=== PATIENT | female | born 2000 | race Caucasian/White ===

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

== ENCOUNTER 2020-01-26 14:45 | Outpatient (REF) | payer MEDICAID, SELFPAY ==
[2020-01-27 17:14] LABS: COVID-19 RT-PCR Result NEGATIVE (Negative)
== END 2020-01-26 15:05 ==
LOC: LBN 14:45
PROVIDERS: Visit Provider Family Medicine
DX: Z20.828 Contact with and (suspected) exposure to other viral communicable diseases (principal)
CPT/HCPCS: U0003

== ENCOUNTER 2020-02-19 18:36 | Outpatient (REF) | payer MEDICAID, SELFPAY ==
[2020-02-20 12:47] LABS: COVID-19 RT-PCR UVMMC Result Negative (Negative)
== END 2020-02-19 18:56 ==
LOC: LBN 18:36
PROVIDERS: Visit Provider Nurse Practitioner Adult Health
DX: Z11.59 Encounter for screening for other viral diseases (principal)
CPT/HCPCS: U0003

== ENCOUNTER 2020-03-28 12:41 | Outpatient (CLI) | payer MEDICAID, SELFPAY ==
[2020-04-02 11:03] LABS: SARS-CoV-2 RNA Undetected (Undetected); SARS-CoV-2 Specimen Source Nasopharynx
== END 2020-03-28 13:01 ==
DX: Z11.59 Encounter for screening for other viral diseases (principal); R19.7 Diarrhea, unspecified
CPT/HCPCS: U0003

== ENCOUNTER 2020-04-29 18:42 | Outpatient (REF) | payer MEDICAID, SELFPAY ==
[2020-05-01 23:51] LABS: COVID-19 RT-PCR Result NEGATIVE (Negative)
== END 2020-04-29 19:02 ==
LOC: LBN 18:42
PROVIDERS: Visit Provider Nurse Practitioner Adult Health
DX: Z11.59 Encounter for screening for other viral diseases (principal)
CPT/HCPCS: U0003

== ENCOUNTER 2020-06-27 14:03 | Outpatient (REF) | payer MEDICAID, SELFPAY | END 2020-06-27 14:23 | LOC: LBN 14:03 | DX: J03.90 Acute tonsillitis, unspecified (principal) | CPT/HCPCS: 87077; 87070; 87186 ==

== ENCOUNTER 2020-07-24 17:21 | Outpatient (REF) | payer MEDICAID, SELFPAY ==
[2020-07-27 11:35] LABS: Patient Race White; SARS-CoV-2 RNA Undetected (Undetected); SARS-CoV-2 Specimen Source Nasal
== END 2020-07-24 17:41 ==
LOC: LBN 17:21
PROVIDERS: Visit Provider Nurse Practitioner Family
DX: J06.9 Acute upper respiratory infection, unspecified (principal)
CPT/HCPCS: U0003

== ENCOUNTER 2020-08-21 09:58 | Emergency (ER) | payer MEDICAID, SELFPAY ==
[2020-08-21 10:00] VITALS: BP 123/80; PULSE 85; RESP 18; TEMP 36.6; O2SAT 96
--- NOTE | 2020-08-21 10:00 | DI.RAD_ITS ---
EXAM: XR SHOULDER RT COMPLETE 2+V CLINICAL HISTORY: Shoulder pain. TECHNIQUE: 2D digital imaging was performed. COMPARISON: No exams were available for comparison FINDINGS: There is no evidence of fracture or dislocation or abnormal soft tissue calcifications. Subacromial space is not diminished. No osseous lesions. Bone density normal. IMPRESSION: No significant radiographic findings. DATA REPOSITORY: RADIATION DOSE DELIVERED:
--- NOTE | 2020-08-21 10:15 | ED.GENADUL_ITS ---
Discharge Plan Disposition Patient Disposition: HOME Condition: Stable Discharge Details Clinical Impression: Other sprain of right shoulder joint, initial encounter Primary Care Provider: Tiffany Jansen ED Provider: Bonnie Dowell Home Meds and New Rx's Prescriptions: Continued norgestimate-ethinyl estradiol [Sprintec (28)] 0.25-35 mg-mcg tablet 1 tab PO DAILY Qty: 84 RF: 3 albuterol sulfate 90 mcg/actuation HFA aerosol inhaler 2 puff inhalation Q6H PRN (Reason: shortness of breath or wheezing) Qty: 6.7 RF: 0 guaifenesin 600 mg tablet extended release 12hr 600 mg PO Q12H PRN (Reason: congestion) Qty: 14 RF: 0 Discharge Instructions Instructions: Shoulder Sprain (ED) Additional Instructions: Rest, ice, compression, elevation. Alternate ice and heat. Please take Tylenol or Ibuprofen with food every 4-6 hours as needed for pain and swelling. Follow up with primary care provider in 3-5 days. Return to ED sooner if any worsening or concerns. Increase oral fluids. Follow-up with orthopedics clinic in 1 week if it is still bothering you. You will need more imaging at 6 months just to monitor that area on the bone. Stand Alone Forms: Work Release Referrals: Tiffany Jansen NP [Primary Care Provider] - Kar Sutton MD [ [facility] STAFF PHYSICIAN] - Discharge Data Discharge Date/Time-TO BE ENTERED AT DEPARTURE: 08/21/20 13:22 Medical Decision Making 20-year-old female presents to the ED with chief complaint of right shoulder pain. She states that this began yesterday after hearing a pop while putting her hair up in a ponytail. Pain worsened this morning after waking from sleep. She is complaining of right shoulder pain, with radiation to the right arm. No other injuries noted. No obvious deformity no falls. She did not take any Tylenol or ibuprofen prior to arrival. a RAD:XR shoulder RT complete 2+V EXAM: XR SHOULDER RT COMPLETE 2+V CLINICAL HISTORY: Shoulder pain. TECHNIQUE: 2D digital imaging was performed. COMPARISON: No exams were available for comparison FINDINGS: There is no evidence of fracture or dislocation or abnormal soft tissue calcifications. Subacromial space is not diminished. No osseous lesions. Bone density normal. IMPRESSION: No significant radiographic findings. 12:00: Spoke with Dr. Sutton with orthopedics who recommends CT to evaluate weight a small lucency noted in the proximal humerus. Patient is still complaining of pain Percocet ordered. Discussed plan of care for CT or MRI patient verbalizes understanding. Addendum dictated Friday08/21/2020 at the 12 noon. There is a 4 x 3 millimeter lucency in the anterior cortex of the proximal diaphysis of the humerus. This appears to involve the cortex. Findings discussed with the orthopedic surgeon. a CT:CT upper extremity RT wo EXAM: CT UPPER EXTREMITY RT WO CLINICAL HISTORY: Shoulder pain TECHNIQUE: Imaging Protocol: Axial computed tomography images with coronal and sagittal reformatted images were created and reviewed. CONTRAST MATERIAL: Intravenous: None COMPARISON: X-rays earlier same date FINDINGS: No evidence of fracture or dislocation. No obvious degenerative changes in the glenohumeral and AC joints bone density is normal. Coracoid process is intact. In the medial cortex of the proximal diaphysis there is a small non expansile lucency measuring 4 x 2 millimeters, this corresponding to the finding on the pl ain radiographs performed earlier today. This is a is not expansile and there is no dehiscence of the cortical surface. No other additional cortical nor intramedullary findings evident. IMPRESSION: Small oval 4 x 2 millimeter nonexpansile lucency in the medial cortex of proximal diaphysis of right humerus, this corresponding to what is seen on the plain films earlier today. No associated scalloping nor cortical dehiscence. No other significant osseous findings. Discussed results with patient who verbalizes understanding. Patient was given a sling in department and instructed on home care and follow-up. She verbalizes understanding. HPI General Mode of arrival: ambulatory . Date/Time Provider Initiated Documentation: 08/21/20 10:03 . Limitations to Documentation: no limitations . Information obtained by: patient . HPI Narrative: 20-year-old female presents to the ED with chief complaint of right shoulder pain. She states that this began yesterday after hearing a pop while putting her hair up in a ponytail. Pain worsened this morning after waking from sleep. She is complaining of right shoulder pain, with radiation to the right arm. No other injuries noted. No obvious deformity no falls. She did not take any Tylenol or ibuprofen prior to arrival. Related Data Home Medications Medication Instructions Recorded Confirmed norgestimate 0.25 mg-ethinyl 1 tab PO DAILY #84 tab 05/30/20 08/21/20 estradiol 35 mcg tablet albuterol sulfate 90 mcg/actuation 2 puff INHALATION Q6H PRN #6.7 g 07/19/20 08/21/20 aerosol inhaler guaifenesin 600 mg tablet, 600 mg PO Q12H PRN #14 tab 07/24/20 08/21/20 extended release 12 hr Previous Rx's Medication Instructions Recorded norgestimate 0.25 mg-ethinyl 1 tab PO DAILY #84 tab 05/30/20 estradiol 35 mcg tablet albuterol sulfate 90 mcg/actuation 2 puff INHALATION Q6H PRN #6.7 g 07/19/20 aerosol inhaler guaifenesin 600 mg tablet, 600 mg PO Q12H PRN #14 tab 07/24/20 extended release 12 hr Allergies Allergy/AdvReac Type Severity Reaction Status Date / Time No Known Allergies Allergy Verified 08/21/20 10:12 General Stated Complaint: Orthopedic PILLO: 4 Review of Systems Narrative: Constitutional: Negative for weight loss, alert and oriented, well groomed, obese body habitus, appears comfortable. HEENT: Denies trauma, headaches, blurry vision, nasal discharge, sore throat, trouble swallowing. Chest: Denies chest pain, palpitations, irregular rhythm, hypertension. Respiratory: Denies Shortness of breath, cough, hemoptysis. GI: Denies abdominal pain, nausea, vomiting, diarrhea, constipation. Musculoskeletal: Complaining of right shoulder pain with radiation to the right arm. [facility] Medical History Increased body mass index (BMI) (10/23/17) Sinusitis, acute Smoker (09/23/17) Upper respiratory tract infection Family History Mother Asthma Father Alcohol abuse Essential hypertension Diabetes Paternal Grandfather Parkinson disease Paternal Grandmother Essential hypertension Asthma Social History Smoking/Tobacco Use Status: Current every day Tobacco Type: cigarettes Years smoked: 4 Quit status: quit date established Second Hand Exposure: Yes Counseling given: counseling >3 minutes Smoking risk assessment performed?: Yes Alcohol Intake: never Drug use: Never Substance use type: does not use Caregiver/Support person: No Household members: family Housing: house Pets and animals: Yes Pets and animals: dog(s), horse(s), turtle(s) and farm animals Sexually active: No Do you think of yourself as: straight/heterosexual Current gender identity: female What is your relationship status?: never How often do you talk on the phone with friends or family?: three or more times per week How often do you get together with friends or relatives?: three or more times per week How often do you attend mormon or orthodoxy services?: 4 or more times per year Do you belong to any clubs or organized social groups?: no Panel score (0-1 are the most socially isolated patients): 2 What type of physical activity do you participate in: walking and other 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 Appears stated age. Obese body habitus. Head: Normocephalic, no trauma. Eyes: Pupils PERRLA, Red reflex noted, EOM's intact. Eyelids symmetrical without lesions, discharge, or swelling. ENT: Bilateral TM's WNL, External ear normal to inspection, no mastoid TTP, swelling, or erythema, Nasal turbinates WNL, no nasal discharge. Normal dentition, Posterior pharynx WNL, no exudate. Chest: RRR, Normal S1, S2, distal pulses intact. Resp: Lungs clear to auscultation bilaterally, no wheezes, rales, or rhonchi. Musculoskeletal: Normal gait, 5/5 strength to all four extremities. Right shoulder pain to palpation anteriorly and posteriorly. Distal pulses and CMS intact. No obvious deformity noted. Skin: No suspicious rashes or lesions. Capillary refill less than 2 sec. Neurologic: Cranial nerves II-XII intact. Alert and oriented x 3. DTR's intact. Course Vital Signs Vital signs: Vital Signs Temperature 36.6 C 08/21/20 10:00 Pulse 85 08/21/20 10:00 Respiratory Rate 18 08/21/20 10:00 Blood Pressure 123/80 08/21/20 10:00 Pulse Oximetry 96 08/21/20 10:00 Temperature 36.6 C 08/21/20 10:00 Temperature Source Skin 08/21/20 10:00 Pulse 85 08/21/20 10:00 Respiratory Rate 18 08/21/20 10:00 Blood Pressure 123/80 08/21/20 10:00 Blood Pressure Position Sitting 08/21/20 10:00 Pulse Oximetry 96 08/21/20 10:00 Oxygen Delivery Method Room Air 08/21/20 10:00 Oxygen Flow Rate 0 08/21/20 10:00 Pain Level 8 08/21/20 10:00 Comment 08/21/20 10:00
[2020-08-21] MEDS: Acetaminophen 500 MG TAB PO (10:20)
--- NOTE | 2020-08-21 12:00 | DI.CT_ITS ---
EXAM: CT UPPER EXTREMITY RT WO CLINICAL HISTORY: Shoulder pain TECHNIQUE: Imaging Protocol: Axial computed tomography images with coronal and sagittal reformatted images were created and reviewed. CONTRAST MATERIAL: Intravenous: None COMPARISON: X-rays earlier same date FINDINGS: No evidence of fracture or dislocation. No obvious degenerative changes in the glenohumeral and AC j oints bone density is normal. Coracoid process is intact. In the medial cortex of the proximal diaphysis there is a small non expansile lucency measuring 4 x 2 millimeters, this corresponding to the finding on the plain radiographs performed earlier today. Th is is a is not expansile and there is no dehiscence of the cortical surface. No other additional cor tical nor intramedullary findings evident. IMPRESSION: Small oval 4 x 2 millimeter nonexpansile lucency in the medial cortex of proximal diaphysis of right humerus, this corresponding to what is seen on the plain films earlier today. No associated scallopi ng nor cortical dehiscence. No other significant osseous findings. RADIATION DOSE DELIVERED: 219.45mGy.cm Total DLP DATA REPOSITORY: All CT scans at this facility are submitted to the National Radiology Data Registry (NRDR) Dose Index Registry (DIR) with the [employer] ([employer]). RADIATION OPTIMIZATION: All CT scans at this facility use at least one of these dose optimization te chniques: automated exposure control; mA and/or kV adjustment per patient size (includes targeted exa ms where dose is matched to clinical indication); or iterative reconstruction.
[2020-08-21] MEDS: oxyCODONE 5 mg/Acetaminophen 325 mg TAB 1 TAB PO (12:03)
[2020-08-21 13:24] VITALS: BP 124/76; PULSE 85; RESP 18; TEMP 36.5; O2SAT 97
== END 2020-08-21 13:22 | disposition home or self-care (01) ==
PROVIDERS: Emergency Provider Registered Nurse Emergency
DX: S43.491A Other sprain of right shoulder joint, initial encounter (principal); X58.XXXA Exposure to other specified factors, initial encounter
CPT/HCPCS: 81025; 99284; 73030; 73200; 99283

== ENCOUNTER 2020-09-13 16:26 | Outpatient (REF) | payer MEDICAID, SELFPAY ==
[2020-09-15 09:36] LABS: COVID-19 RT-PCR Result NEGATIVE (Negative)
== END 2020-09-13 16:46 ==
LOC: LBN 16:26
PROVIDERS: Visit Provider Nurse Practitioner Adult Health
DX: Z11.59 Encounter for screening for other viral diseases (principal)
CPT/HCPCS: U0003

== ENCOUNTER 2020-11-24 09:39 | Outpatient (CLI) | payer MEDICAID, SELFPAY ==
[2020-11-25 02:01] LABS: COVID-19 RT-PCR UVMMC Result Positive (Negative)
== END 2020-11-24 09:40 | disposition home or self-care (01) ==
PROVIDERS: Visit Provider Nurse Practitioner Family
DX: Z20.822 Contact with and (suspected) exposure to COVID-19 (principal)
CPT/HCPCS: U0003

== ENCOUNTER 2021-01-26 12:00 | Emergency (ER) | payer MEDICAID, SELFPAY ==
[2021-01-26 12:05] VITALS: BP 132/68; PULSE 75; RESP 16; TEMP 36.5; O2SAT 98
--- NOTE | 2021-01-26 12:27 | ED.GENADUL_ITS ---
Discharge Plan Disposition Patient Disposition: HOME Condition: Stable Discharge Details Clinical Impression: Rash Primary Care Provider: Tiffany Jansen ED Provider: Earnest Napier Home Meds and New Rx's Prescriptions: Continued norgestimate-ethinyl estradiol [Sprintec (28)] 0.25-35 mg-mcg tablet 1 tab PO DAILY Qty: 84 RF: 3 albuterol sulfate 90 mcg/actuation HFA aerosol inhaler 2 puff inhalation Q6H PRN (Reason: shortness of breath or wheezing) Qty: 6.7 RF: 0 guaifenesin 600 mg tablet extended release 12hr 600 mg PO Q12H PRN (Reason: congestion) Qty: 14 RF: 0 Discharge Instructions Additional Instructions: Your rash and spot appears to be a dermatitis and less likely a ganglion cyst try to use over the counter hydrocotrisone cream on the area if not improving by next week see your primary care provider's office if you feel more ill, have fevers or worsening pain return to the emergency department Medical Decision Making 21 yo female comes in a spot on her right arm that was causing a burning and itching sensation. She noticed it today and was not sure what caused it so came here. She has no numbness on exam, normal sensation, full rnage of motion of the hand, wrist, elbow and normal pulses. She has very mild erythema of the right distal anterior arm about 2x2cm without warmth and no tenderness, no fluctuance. No abscess on bedside u/s and no evidence of cellulitis, suspect contact dermatitis and less likely ganglion cyst, will have her start topical steroids and advised to follow up with pcp and return precautions given Differential Diagnosis Differential Diagnosis: contact dermatitis, ganglion cyst [facility] General Mode of arrival: ambulatory . Date/Time Provider Initiated Documentation: 01/26/21 12:00 . Limitations to Documentation: no limitations . Information obtained by: patient . History of Present Illness 21 year old F presents to the emergency department with the chief complaint of rash, described as mild, Quality is described as burning (and itching), and is localized to the upper extremity. Patient reports no radiation. Patient started experiencing this day(s) (1) and it has been constant. No relieving factors improve symptom(s), No exacerbating factors reported . Patient did receive the following treatments prior to arrival, none Related Data Home Medications Medication Instructions Recorded Confirmed norgestimate 0.25 mg-ethinyl 1 tab PO DAILY #84 tab 05/30/20 08/28/20 estradiol 35 mcg tablet albuterol sulfate 90 mcg/actuation 2 puff INHALATION Q6H PRN #6.7 g 07/19/20 08/28/20 aerosol inhaler guaifenesin 600 mg tablet, 600 mg PO Q12H PRN #14 tab 07/24/20 08/28/20 extended release 12 hr Previous Rx's Medication Instructions Recorded norgestimate 0.25 mg-ethinyl 1 tab PO DAILY #84 tab 05/30/20 estradiol 35 mcg tablet albuterol sulfate 90 mcg/actuation 2 puff INHALATION Q6H PRN #6.7 g 07/19/20 aerosol inhaler guaifenesin 600 mg tablet, 600 mg PO Q12H PRN #14 tab 07/24/20 extended release 12 hr Allergies Allergy/AdvReac Type Severity Reaction Status Date / Time No Known Allergies Allergy Verified 01/26/21 12:14 General Stated Complaint: Orthopedic PILLO: 4 Review of Systems All systems reviewed & are unremarkable except as noted in HPI and below Constitutional Constitutional: Denies chills and Denies fever(s) Cardiovascular Cardiovascular: Denies chest pain and Denies dyspnea Respiratory Respiratory: Denies cough and Denies dyspnea Gastrointestinal Gastrointestinal: Denies abdominal pain, Denies nausea and Denies vomiting PFSH Medical History Increased body mass index (BMI) (10/23/17) Sinusitis, acute Smoker (09/23/17) Upper respiratory tract infection Family History Mother Asthma Father Alcohol abuse Essential hypertension Diabetes Paternal Grandfather Parkinson disease Paternal Grandmother Essential hypertension Asthma Social History Smoking/Tobacco Use Status: Current every day Tobacco Type: cigarettes Years smoked: 4 Quit status: quit date established Second Hand Exposure: Yes Counseling given: counseling >3 minutes Smoking risk assessment performed?: Yes Alcohol Intake: current Alcohol Intake frequency: holidays/special occasions only Drug use: Never Substance use type: does not use Caregiver/Support person: No Household members: family Housing: house Pets and animals: Yes Pets and animals: dog(s), horse(s), turtle(s) and farm animals Sexually active: No Do you think of yourself as: straight/heterosexual Current gender identity: female What is your relationship status?: never How often do you talk on the phone with friends or family?: three or more times per week How often do you get together with friends or relatives?: three or more times per week How often do you attend buddhism or religion services?: 4 or more times per year Do you belong to any clubs or organized social groups?: no Panel score (0-1 are the most socially isolated patients): 2 What type of physical activity do you participate in: walking and other 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, [employer] Duration: 15-30 minutes/day Frequency: 5-6 times per week Yadira/Lutheran: Mandaen Do you feel safe at home: Yes Do you feel safe in your relationship?: Yes Exam Const General: no acute distress Orientation: alert HENMT Head: normal to inspection Ears: external ears normal General nose exam: external nose normal Mouth: moist mucous membranes Eyes General: appearance normal, both eyes and all related structures Neck Neck: normal visual inspection Resp Effort & Inspection: normal respiratory effort and able to speak in complete sentences Cardio Rate: regular rate Skin General skin exam: elasticity normal Neuro General: patient alert and patient oriented x3 Extrem General: full ROM, capillary refill normal, no cyanosis and no edema Psych Mental Status: mental status grossly normal Course Vital Signs Vital signs: Vital Signs Temperature 36.5 C 01/26/21 12:05 Pulse 75 01/26/21 12:05 Respiratory Rate 16 01/26/21 12:05 Blood Pressure 132/68 01/26/21 12:05 Pulse Oximetry 98 01/26/21 12:05 Temperature 36.5 C 01/26/21 12:05 Temperature Source Oral 01/26/21 12:05 Pulse 75 01/26/21 12:05 Respiratory Rate 16 01/26/21 12:05 Respiratory Effort 01/26/21 12:15 Blood Pressure 132/68 01/26/21 12:05 Blood Pressure Position Sitting 01/26/21 12:05 Pulse Oximetry 98 01/26/21 12:05 Oxygen Delivery Method Room Air 01/26/21 12:05 Oxygen Flow Rate 0 01/26/21 12:05 Pain Level 5 01/26/21 12:05
== END 2021-01-26 12:37 | disposition home or self-care (01) ==
PROVIDERS: Emergency Provider Emergency Medicine
DX: R21 Rash and other nonspecific skin eruption (principal)
CPT/HCPCS: 99284; 99282

== ENCOUNTER 2021-02-01 20:53 | Outpatient (REF) | payer MEDICAID, SELFPAY ==
[2021-02-03 14:22] LABS: COVID-19 RT-PCR UVMMC Result Negative (Negative)
== END 2021-02-01 20:54 | disposition home or self-care (01) ==
LOC: NCHCN 20:53
PROVIDERS: Visit Provider Physician Assistant Medical
DX: J02.9 Acute pharyngitis, unspecified (principal); J06.9 Acute upper respiratory infection, unspecified; Z20.822 Contact with and (suspected) exposure to COVID-19
CPT/HCPCS: U0003; 87070

== ENCOUNTER 2021-03-09 14:21 | Outpatient (REF) | payer MEDICAID, SELFPAY ==
--- NOTE | 2021-03-09 | PAPFT_PTH ---
PATIENT: Yadira Adams LOC: [facility] U#:[id number] AGE/SX: 21/F ROOM: RE03/09/[address]: ELMER White : 2000 BED: DIS: 03/09/2021 SPEC #: [id number] RECD: 03/09/21 16:05 STATUS: ULICES REBhanu #: [id number] ERA: 03/09/21 00:[address]: Kavita Obrien DEPT: [facility] Cytology RECD BY: Sheila Bond ENTERED: 03/09/21 16:05 SP TYPE: PAPFT OTHR DR: Tiffany Jansen APRN Tissues: 1 - CX/ENDOCX FOR PAP SMEARS Procedures: PAP THIN PREP/UVM Screening Comments: [id number]
[2021-03-14 14:26] LABS: Chlamydia Result Negative (Negative); GC Result Negative (Negative)
== END 2021-03-09 14:22 | disposition home or self-care (01) ==
LOC: LBN 14:21
PROVIDERS: Visit Provider Nurse Practitioner Family
DX: Z11.3 Encounter for screening for infections with a predominantly sexual mode of transmission (principal); Z12.4 Encounter for screening for malignant neoplasm of cervix
CPT/HCPCS: 87491; 87591; 88142

== ENCOUNTER 2021-06-05 03:56 | Outpatient (CLI) | payer MEDICAID, SELFPAY ==
[2021-06-05 16:25] LABS: TSH (W/Ref FT4) 2.83 uIU/mL (0.36-3.74)
[2021-06-05 23:17] LABS: Prolactin 7.9 ng/mL (See Table)
[2021-06-06 09:39] LABS: DHEA Sulfate 300 ug/dL (134-407)
[2021-06-09 00:08] LABS: 17-Hydroxyprogesterone <40 ng/dL
[2021-06-12 13:47] LABS: Testosterone, Total 28 ng/dL (8-60)
== END 2021-06-05 03:57 | disposition home or self-care (01) ==
LOC: LBO 03:57
PROVIDERS: Visit Provider Nurse Practitioner Family
DX: N91.2 Amenorrhea, unspecified (principal)
CPT/HCPCS: 36415; 82627; 84402; 84403; 83498; 84146; 84443

== ENCOUNTER 2021-06-21 11:17 | Emergency (ER) | payer MEDICAID, SELFPAY ==
--- NOTE | 2021-06-21 11:18 | ED.GENADUL_ITS ---
Discharge Plan Disposition Patient Disposition: HOME Condition: Stable Discharge Details Clinical Impression: Bright red rectal bleeding, History of hemorrhoids Primary Care Provider: Tiffany Jansen ED Provider: Ebonie Perez Home Meds and New Rx's Prescriptions: Continued medroxyprogesterone [Depo-Provera] 150 mg/mL suspension 150 mg IM Q12W Qty: 1 RF: 3 Discharge Instructions Instructions: Hemorrhoids (ED), Rectal Bleeding (ED) Additional Instructions: Drink plenty of fluids and get plenty of rest. Alternate tylenol and motrin as needed and directed for pain. You can try [id number] stool softeners to help with constipation as needed. You can try [id number] topical medication for your hemorrhoids as needed and directed. You can also try an [id number] sitz bath or soaking in a bathtub as needed to help with relief of your hemorrhoid pain. If you have persistent bleeding or return and worsening of your abdominal pain, return to the emergency department immediately for further evaluation and consideration for CT scan imaging at that time. Follow-up with your primary care doctor in 1 week. Stand Alone Forms: Work Release Discharge Data Discharge Date/Time-TO BE ENTERED AT DEPARTURE: 06/21/21 13:45 Discharge Physician: Ebonie Perez Medical Decision Making 21-year-old female who presents to the ED with a complaint of bright red blood mixed with bowel movement this morning. She does also admit to mild lower abdominal cramping which is now near resolved. She does admits to some occasional rectal pain. Patient is hemodynamically stable. She appears comfortable and nontoxic. Abdomen is soft and tender in the left lower quadrant. Rectal exam has a normal external appearance with brown stool which is heme-negative without masses, fissures or external hemorrhoids noted. Discussed at length with patient that suspect most likely her symptoms are due to an internal hemorrhoid causing bleeding during bowel movement. Discussed that she has a strong personal and family history of hemorrhoids and with her history of intermittent constipation, suspect she may have caused an internal hemorrhoid to bleed during her bowel movement. Also discussed the other less likely possible causes including diverticulitis, colitis or mass. Discussed that further evaluation of this would include a CT scan but patient feels that her pain is near resolved and would rather not proceed with the CAT scan secondary to radiation exposure as she feels her bleeding is likely due to hemorrhoids. Patient is agreeable to lab work. Labs reviewed and unremarkable. Normal white blood cell count. Normal hemoglobin and platelets. Normal electrolytes. Patient reassessed again and she denies any abdominal pain or return of rectal bleeding. She appears comfortable and non-toxic. Patient would prefer to go home at this time and use supportive care including Preparation H as needed, stool softeners, and sitz bath as needed. Advised to follow up with the primary care doctor for re-evaluation. Advised to return here immediately if she has any worsening abdominal pain or persistent rectal bleeding for reevaluation and for consideration of CT imaging at that time. Medical Records Medical records reviewed: Yes I reviewed the patient's medical records. Lab Data Lab results reviewed: Yes I reviewed the patient's lab results. Labs: Laboratory Tests Range/Units 06/21/21 06/21/21 06/21/21 11:44 12:15 12:15 WBC (4.4-10.8) 10^3/uL 9.64 RBC (3.93-5.22) 10^6/uL 4.21 Hgb (11.2-15.7) g/dL 12.2 Hct (36.0-46.0) % 37.9 MCV (80-95) fL 90.0 MCH (27.0-33.0) pg 29.0 MCHC (32.0-36.0) % 32.2 RDW (11.7-14.6) % 13.3 Plt Count (130-400) 10^3/uL 299 MPV (8.0-11.0) fL 8.7 Immature Gran % 0.5 Neutrophils % 62.2 Lymphocytes % 28.5 Monocytes % 7.0 Eosinophils % 1.5 Basophils % 0.3 Nucleated RBC % % 0 Absolute Neutrophils (1.2-6.7) 10^3/uL 6.00 Absolute Lymphocytes (1.2-3.4) 10^3/uL 2.75 Absolute Monocytes (0.1-0.8) 10^3/uL 0.67 Absolute Eosinophils (0.0-0.7) 10^3/uL 0.14 Absolute Basophils (0.0-0.2) 10^3/uL 0.03 Sodium (136-145) mmol/L 141 Potassium (3.5-5.1) mmol/L 3.7 Chloride (98-107) mmol/L 105 Carbon Dioxide (21.0-32.0) mmol/L 28.8 Anion Gap (3-11) mmol/L 7.2 BUN (7-18) mg/dL 10 Creatinine (0.55-1.02) mg/dL 1.1 H Estimated GFR/1.73 m2 (mL/min/1.73m2) >= 60.00 Glucose (74-106) mg/dL 79 Calcium (8.5-10.1) mg/dL 9.1 Total Bilirubin (0.2-1.0) mg/dL 0.4 AST (15-37) U/L 18 ALT (14-59) U/L 41 Alkaline Phosphatase (46-116) U/L 57 Total Protein (6.4-8.2) g/dL 7.5 Albumin (3.4-5.0) g/dL 3.7 Urine Color (Yellow) Yellow Urine Clarity (Clear) Clear Urine pH (5-8) 5.5 Ur Specific [place] (1.005-1.025) >= 1.030 H Urine Protein (Negative) mg/dL Negative Urine Ketones (Negative) mg/dL Negative Urine Blood (Negative) Negative Urine Nitrite (Negative) Negative Urine Bilirubin (Negative) Negative Urine Urobilinogen (Up TO 0.2) EU/dL 0.2 Ur Leukocyte Esterase (Negative) Negative Urine Glucose (Negative) mg/dL Negative HPI General Mode of arrival: ambulatory . Date/Time Provider Initiated Documentation: 06/21/21 11:18 . Limitations to Documentation: no limitations . Information obtained by: patient . HPI Narrative: Patient is a 21-year-old female with a history of external hemorrhoids presents with rectal bleeding with bowel movement this morning. Patient states she had a normal bowel movement this morning when she wiped with toilet paper and noted bright red blood on the toilet paper and a moderate amount of bright red bleeding in the toilet. He states his stool was brown. She does admit to some intermittent lower abdominal crampy pain which is 1/10. She states she had worsening external hemorrhoids last week which was treated with Preparation H and states it resolved. She states she had not been having any rectal pain this morning until after her bowel movement and now has some mild rectal discomfort. She denies any known fever, nausea, vomiting or urinary symptoms. Related Data Home Medications Medication Instructions Recorded Confirmed medroxyprogesterone 150 mg/mL 150 mg IM Q12W #1 ml 06/18/21 06/21/21 intramuscular suspension Previous Rx's Medication Instructions Recorded medroxyprogesterone 150 mg/mL 150 mg IM Q12W #1 ml 06/18/21 intramuscular suspension Allergies Allergy/AdvReac Type Severity Reaction Status Date / Time No Known Allergies Allergy Verified 06/21/21 11:35 General PILLO: 4 Review of Systems All systems reviewed & are unremarkable except as noted in HPI and below Constitutional Constitutional: Reports as per HPI, Denies chills and Denies fever(s) Eyes Eyes: Denies blurry vision ENT Ears, Nose, Mouth, and Throat: Denies dizziness, Denies sore throat and Denies throat swelling Cardiovascular Cardiovascular: Denies chest pain and Denies dyspnea Respiratory Respiratory: Denies cough and Denies dyspnea Gastrointestinal Gastrointestinal: Reports abdominal pain, Reports hematochezia, Denies diarrhea and Denies vomiting Genitourinary Genitourinary: Denies hematuria and Denies dysuria Musculoskeletal Musculoskeletal: Denies back pain and Denies numbness Integumentary/Breasts Skin/Breast: Denies lesions and Denies rash Neurologic Neurologic: Denies dizziness, Denies localized weakness and Denies numbness Allergic/Immunologic Allergic/Immunologic: Denies throat swelling [facility], [facility] Medical History (Updated 06/21/21 @ 13:28 by Ebonie Perez DO) Increased body mass index (BMI) (10/23/17) Sinusitis, acute Smoker (09/23/17) Upper respiratory tract infection Surgical History (Updated 06/21/21 @ 12:15 by Ebonie Perez DO) No significant past surgical history Family History Mother Asthma Father Alcohol abuse Essential hypertension Diabetes Paternal Grandfather Parkinson disease Paternal Grandmother Essential hypertension Asthma Social History Smoking/Tobacco Use Status: Current-Occasional Tobacco Type: e-cigarettes Tobacco: How many years used: 4 Quit status: considering quitting Second Hand Exposure: Yes Counseling given: counseling >3 minutes Smoking risk assessment performed?: Yes Alcohol Intake: current Alcohol Intake frequency: holidays/special occasions only Drug use: Occasionally Substance use type: marijuana Caregiver/Support person: No Household members: family Housing: house Pets and animals: Yes Pets and animals: dog(s), horse(s), turtle(s) and farm animals Sexually active: No Do you think of yourself as: straight/heterosexual Current gender identity: female What is your relationship status?: never How often do you talk on the phone with friends or family?: three or more times per week How often do you get together with friends or relatives?: three or more times per week How often do you attend yazdanism or orthodoxy services?: 4 or more times per year Do you belong to any clubs or organized social groups?: no Panel score (0-1 are the most socially isolated patients): 2 What type of physical activity do you participate in: walking and other 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, [employer] Duration: 15-30 minutes/day Frequency: 5-6 times per week Yadira/Scientologist: Jehovah'S Witness Do you feel safe at home: Yes Do you feel safe in your relationship?: Yes Exam Const General: cooperative, healthy appearing and no acute distress HENMT Head: normal to inspection Face and sinus: normal facial exam Eyes General: appearance normal, both eyes and all related structures EOM: EOM intact bilaterally Neck Neck: normal visual inspection and No submandibular swelling Lymphatic: no lymphadenopathy noted Chest Chest: normal inspection of the chest and no tenderness Resp Effort & Inspection: normal respiratory effort and able to speak in complete sentences Auscultation: clear to auscultation bilaterally Cardio Rate: regular rate Rhythm: regular rhythm GI Inspection: normal to inspection and obesity Palpation: soft, not firm, not rigid and nontender Auscultation: normal bowel sounds Rectal Exam - female: visual inspection normal, normal sphincter tone, heme negative stool (brown), No hemorrhoids (no external hemorrhoids noted), No laceration, No lesions and No mass Skin General skin exam: no rashes or lesions noted Neuro General: patient alert, patient awake and patient oriented x3 Cognition: normal cognition Speech: speech normal Motor: muscle tone normal throughout Sensory Exam: no sensory deficits noted Extrem General: normal to inspection, full ROM, capillary refill normal, no calf tenderness bilaterally and no edema Psych Appearance: grossly normal Mental Status: mental status grossly normal Speech and Movement: speech and movement normal Affect: normal affect
[2021-06-21 11:31] VITALS: BP 128/64; PULSE 96; RESP 14; TEMP 36.6; O2SAT 100
[2021-06-21 11:57] LABS: Bilirubin Negative (Negative); Blood Negative (Negative); Clarity Clear (Clear); Glucose Negative (Negative); Ketones Negative (Negative); Leukocyte Esterase Negative (Negative); Nitrite Negative (Negative); Specific Gravity >= 1.030 (1.005-1.025); Urobilinogen 0.2 EU/dL (Up TO 0.2); pH 5.5 (5-8)
[2021-06-21 12:23] LABS: Abs Immature Grans 0.05 10^3/uL (0.0-0.06); Absolute Basophil Count 0.03 10^3/uL (0.0-0.2); Absolute Eosinophil Count 0.14 10^3/uL (0.0-0.7); Absolute Lymphocyte Count 2.75 10^3/uL (1.2-3.4); Absolute Monocyte Count 0.67 10^3/uL (0.1-0.8); Basophils % 0.3; Eosinophils % 1.5; HCT 37.9 % (36.0-46.0); HGB 12.2 g/dL (11.2-15.7); Immature Grans % 0.5; Lymphocytes % 28.5; MCHC 32.2 % (32.0-36.0); MPV 8.7 fL (8.0-11.0); Neutrophils % 62.2; Nucleated RBC 0 %; Platelet Count 299 10^3/uL (130-400); RBC 4.21 10^6/uL (3.93-5.22); RDW 13.3 % (11.7-14.6); RDW-SD 43.8 fL; WBC 9.64 10^3/uL (4.4-10.8)
[2021-06-21 12:38] LABS: ALT 41 U/L (14-59); AST 18 U/L (15-37); Albumin 3.7 g/dL (3.4-5.0); Alkaline Phosphatase 57 U/L (46-116); Anion Gap 7.2 mmol/L (3-11); BUN 10 mg/dL (7-18); Bilirubin, Total 0.4 mg/dL (0.2-1.0); CO2 28.8 mmol/L (21.0-32.0); CREATININE 1.1 mg/dL (0.55-1.02); Calcium 9.1 mg/dL (8.5-10.1); Chloride 105 mmol/L (98-107); Glucose 79 mg/dL (74-106); Potassium 3.7 mmol/L (3.5-5.1); Sodium 141 mmol/L (136-145); Total Protein 7.5 g/dL (6.4-8.2)
[2021-06-21 13:45] VITALS: BP 123/67; PULSE 92; RESP 16; O2SAT 98
== END 2021-06-21 13:45 | disposition home or self-care (01) ==
PROVIDERS: Emergency Provider Physician Assistant
DX: K62.5 Hemorrhage of anus and rectum (principal)
CPT/HCPCS: 36415; 80053; 81025; 99283; 81003; 85025

== ENCOUNTER 2021-08-11 18:38 | Emergency (ER) | payer MEDICAID, SELFPAY ==
--- NOTE | 2021-08-11 18:40 | W.ED.GENAD ---
Discharge Plan Disposition Patient Disposition: HOME Condition: Stable Discharge Details Clinical Impression: Hemorrhoids Primary Care Provider: Tiffany Jansen ED Provider: Ebonie Perez Home Meds and New Rx's Prescriptions: New lidocaine HCl 2 % jelly in applicator 1 applic TP BID PRN (Reason: pain) Qty: 12 RF: 0 Discharge Instructions Instructions: Hemorrhoids (ED) Additional Instructions: Drink plenty of fluids and get plenty of rest. Avoid possible diet triggers which may be more likely to cause constipation or diarrhea. Continue using your stool softeners and MiraLAX as directed to keep stool soft and prevent constipation which can worsen hemorrhoids. Use the lidocaine jelly applicator as needed and directed for rectal pain. You can also use [id number] Preparation H or Tucks pads as needed and directed. Call the general surgery office Friday to schedule a follow-up appointment for reevaluation. Return immediately to the emergency department if you develop any worsening or new concerning symptoms such as fever, vomiting, abdominal pain,, worsening rectal pain or any other concerns. Referrals: Anitha Andujar MD [ [facility] STAFF PHYSICIAN] - Discharge Data Discharge Physician: Ebonie Perez Medical Decision Making 21-year-old female with a history of internal and external hemorrhoids present with rectal pain for the past 4 days. Heart rate elevated on arrival, normal upon my assessment. She appears comfortable and non-toxic. She has two 3 to 4 mm nonthrombosed hemorrhoids on external exam. There is no evidence of cellulitis or abscess. Her abdomen is soft and nontender. Patient was given education regarding regular bowel movements and instructed to continue using her stool softeners to prevent constipation or straining. She has no fever, she appears nontoxic, and has no vomiting or abdominal pain or signs of external cellulitis, do not feel indication for lab work or imaging and she is agreeable. Patient was given a lidocaine jelly applicator here and prescription sent electronically to her pharmacy. She was placed on surgery follow-up list for reevaluation. Advised to call surgery on Friday for follow-up. Usual and customary return precautions given prior to discharge. Medical Records Medical records reviewed: Yes I reviewed the patient's medical records. HPI General Mode of arrival: ambulatory. Date/Time Provider Initiated Documentation: 08/11/21 18:40. Limitations to Documentation: no limitations. Information obtained by: patient. HPI Narrative: Patient is a 21-year-old female with a history of hemorrhoids presents with rectal pain for the past 4 days. Patient was seen here in June for bright red rectal bleeding and diagnosed with likely internal hemorrhoids at that time but had only minimal rectal pain at that time. Patient states she has had intermittent painful hemorrhoids in the last few months, but this has been worse over the past 4 days. She states she has been using stool softeners and MiraLAX. She denies any significant straining with her bowel movements. She states her bowel movements have been normal in size, color and consistency. She denies any fever, vomiting, abdominal pain. She denies any known . Related Data Home Medications Medication Instructions Recorded Confirmed lidocaine HCl 1 applic TP BID PRN #12 ml 08/11/21 Previous Rx's Medication Instructions Recorded lidocaine HCl 1 applic TP BID PRN #12 ml 08/11/21 Allergies Allergy/AdvReac Type Severity Reaction Status Date / Time No Known Allergies Allergy Verified 08/11/21 18:46 General PILLO: 3 Review of Systems All systems reviewed & are unremarkable except as noted in HPI and below Constitutional Constitutional: Reports as per HPI, Denies chills and Denies fever(s) Eyes Eyes: Denies blurry vision ENT Ears, Nose, Mouth, and Throat: Denies dizziness, Denies sore throat and Denies throat swelling Cardiovascular Cardiovascular: Denies chest pain and Denies dyspnea Respiratory Respiratory: Denies cough and Denies dyspnea Gastrointestinal Gastrointestinal: Denies abdominal pain, Denies diarrhea, Denies vomiting and Reports other (hemorrhoids) Genitourinary Genitourinary: Denies hematuria and Denies dysuria Musculoskeletal Musculoskeletal: Denies back pain and Denies numbness Integumentary/Breasts Skin/Breast: Denies lesions and Denies rash Neurologic Neurologic: Denies dizziness, Denies localized weakness and Denies numbness Allergic/Immunologic Allergic/Immunologic: Denies throat swelling [facility] Active Problem List (Updated 08/11/21 @ 19:29 by Ebonie Perez DO) Positive test (Acute) Bright red rectal bleeding (Acute) History of hemorrhoids (Acute) Depressed (Chronic) Rash (Acute) Humerus lesion, right (Acute) Tendonitis of long head of biceps brachii of right shoulder (Acute) Viral infection (Acute) Tonsillitis (Acute) Upper respiratory tract infection (Acute) Sinusitis, acute (Acute) Left foot pain (Acute) Smoker (Acute 09/23/17) Increased body mass index (BMI) (Acute 10/23/17) Medical History (Updated 08/11/21 @ 19:29 by Ebonie Perez DO) Depression Hemorrhoids Surgical History (Updated 06/21/21 @ 12:15 by Ebonie Perez DO) No significant past surgical history Family History Mother Asthma Father Alcohol abuse Essential hypertension Diabetes Paternal Grandfather Parkinson disease Paternal Grandmother Essential hypertension Asthma Social History Smoking/Tobacco Use Status: Current-Occasional Tobacco Type: e-cigarettes Tobacco: How many years used: 4 Quit status: considering quitting Second Hand Exposure: Yes Counseling given: counseling >3 minutes Smoking risk assessment performed?: Yes Alcohol Intake: current Alcohol Intake frequency: holidays/special occasions only Drug use: Occasionally Substance use type: marijuana Caregiver/Support person: No Household members: family Housing: house Pets and animals: Yes Pets and animals: dog(s), horse(s), turtle(s) and farm animals Sexually active: No Do you think of yourself as: straight/heterosexual Current gender identity: female What is your relationship status?: never How often do you talk on the phone with friends or family?: three or more times per week How often do you get together with friends or relatives?: three or more times per week How often do you attend advent or pentecostal services?: 4 or more times per year Do you belong to any clubs or organized social groups?: no Panel score (0-1 are the most socially isolated patients): 2 What type of physical activity do you participate in: walking and other 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, 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 Duration: 15-30 minutes/day Frequency: 5-6 times per week Yadira/Lutheran: Restoration Do you feel safe at home: Yes Do you feel safe in your relationship?: Yes Exam Const General: cooperative, healthy appearing and no acute distress HENMT Head: normal to inspection Face and sinus: normal facial exam Eyes General: appearance normal, both eyes and all related structures EOM: EOM intact bilaterally Neck Neck: normal visual inspection and No submandibular swelling Lymphatic: no lymphadenopathy noted Chest Chest: normal inspection of the chest and no tenderness Resp Effort & Inspection: normal respiratory effort and able to speak in complete sentences Auscultation: clear to auscultation bilaterally Cardio Rate: regular rate Rhythm: regular rhythm GI Inspection: normal to inspection Palpation: soft, not firm, not rigid and nontender Auscultation: normal bowel sounds Other: Two 3mm tender hemorrhoids noted at 2 and 4 o'clock at anus. No evidence of thrombosed hemorrhoids. No active bleeding. No discharge, erythema, induration or fluctuance. Skin General skin exam: no rashes or lesions noted Neuro General: patient alert, patient awake and patient oriented x3 Cognition: normal cognition Speech: speech normal Motor: muscle tone normal throughout Sensory Exam: no sensory deficits noted Extrem General: normal to inspection, full ROM, capillary refill normal, no calf tenderness bilaterally and no edema Psych Appearance: grossly normal Mental Status: mental status grossly normal Speech and Movement: speech and movement normal Affect: normal affect
[2021-08-11 18:44] VITALS: BP 128/87; PULSE 112; RESP 18; TEMP 36.4; O2SAT 98
--- NOTE | 2021-08-11 19:17 | NUR.NOTE ---
Referral to [facility] for appt within the next week, dx of hemorrhoids.Nursing Note:
[2021-08-11] MEDS: Lidocaine 2% Jelly 6 ML SYR 12 ML TP (19:19)
== END 2021-08-11 19:29 | disposition home or self-care (01) ==
PROVIDERS: Emergency Provider Physician Assistant
DX: K64.4 Residual hemorrhoidal skin tags (principal)
CPT/HCPCS: 99283

== ENCOUNTER 2021-12-10 09:43 | Emergency (ER) | payer MEDICAID, SELFPAY ==
[2021-12-10 09:47] VITALS: BP 135/88; PULSE 111; RESP 16; TEMP 36.3; O2SAT 98
--- NOTE | 2021-12-10 10:33 | ED.GENADUL_ITS ---
Discharge Plan Disposition Patient Disposition: HOME Condition: Stable Discharge Details Clinical Impression: Pharyngitis Primary Care Provider: Tiffany Jansen ED Provider: Danica Us Home Meds and New Rx's Prescriptions: Continued medroxyprogesterone [Depo-Provera] 150 mg/mL syringe 150 mg IM ONCE Qty: 1 0RF No Action medroxyprogesterone [Depo-Provera] 150 mg/mL syringe 150 mg IM ONCE Qty: 1 0RF medroxyprogesterone [Depo-Provera] 150 mg/mL suspension 150 mg IM [id number] 0RF estradiol [Estrace] 0.01 % (0.1 mg/gram) cream 1 g vaginal .COMPLEX Qty: 42.5 4RF Rx Instructions: 1 g VG daily for 2 weeks then twice weekly Discharge Instructions Instructions: Pharyngitis (ED) Additional Instructions: Please return immediately to the emergency department if you develop any new or worsening symptoms, if your condition does not improve as expected, or if you become otherwise concerned. It is extremely important that you call soon as possible to make an appointment to be seen in follow-up for this visit by your primary care doctor. Stand Alone Forms: PENDING COVID-19 TESTING, Work Release Referrals: Tiffany Jansen, [employer] RENT[employer] CLERK [Primary Care Provider] - Discharge Data Discharge Date/Time-TO BE ENTERED AT DEPARTURE: 12/10/21 11:15 Medical Decision Making Yadira Adams is a 21-year-old woman without reported history of medical problems presenting to emergency department with sore throat. Patient reports that 2 days ago she began to feel tired and intermittently hot and cold. With no measured fever. Patient reports that yesterday she woke up with a sore throat. Feeling of being hot and cold had resolved at that point. Patient reports that sore throat has persisted. She reports some bilateral ear pain, denies any other pain. Patient reports that she has been able to eat and drink as usual, though she does have pain with swallowing. She denies fevers, vomiting, diarrhea, shortness of breath, cough, numbness, weakness, rash. Patient reports that she feels otherwise in her usual state of health. On exam Pt is very well and non-toxic appearing. TMs and canals normal b/l. Posterior pharyngeal erythema with mild b/l tonsillar edema. Concern for viral vs strep pharyngitis, mono , covid, other. Exam/hx at this time not c/w RADIOLOGY CT TECHNOLOGIST or RPA, epiglottitis, ludwigs, other impending airway compromise, meningitis, mastoiditis, sepsis. Plan for IM steroid, rapid strep, send out Covid test. Pt declines monospot. Strep negative. Pt tolerating PO without issue. I had a discussion with Patient regarding return to emergency department precautions, home care, and importance of outpatient follow-up. Pt verbalizes understanding of the plan and is amenable. Patient discharged to home with clear plan for outpatient follow-up. All questions were answered. Disposition decision was made weighing the risks and benefits of hospitalization versus outpatient treatment, the risk for further decompensation, and the patient's wishes. HPI General Date/Time Provider Initiated Documentation: 12/10/21 09:48 . Limitations to Documentation: no limitations . Information obtained by: patient, RN notes reviewed and old records reviewed . HPI Narrative: Yadira Adams is a 21-year-old woman without reported history of medical problems presenting to emergency department with sore throat. Patient reports that 2 days ago she began to feel tired and intermittently hot and cold without measured fever. Patient reports that yesterday she woke up with a sore throat. Feeling of being hot and cold had resolved at that point. Patient reports that sore throat has persisted. She reports some bilateral ear pain, denies any other pain. Patient reports that she has been able to eat and drink as usual, though she does have pain with swallowing. She denies fevers, vomiting, diarrhea, shortness of breath, cough, numbness, weakness, rash. Patient reports that she feels otherwise in her usual state of health. Related Data Home Medications Medication Instructions Recorded Confirmed estradiol (Estrace) 1 g VAGINAL .COMPLEX #42.5 g 12/14/21 12/14/21 medroxyprogesterone 150 mg/mL 150 mg IM [id number] 12/14/21 intramuscular suspension (Depo-Provera) Previous Rx's Medication Instructions Recorded estradiol (Estrace) 1 g VAGINAL .COMPLEX #42.5 g 12/14/21 Allergies Allergy/AdvReac Type Severity Reaction Status Date / Time No Known Allergies Allergy Verified 12/14/21 11:06 General Stated Complaint: Sorethroat PILLO: 4 Review of Systems Narrative: Constitutional: denies fevers Eyes: denies eye pain ENT: denies dental pain, reports sore throat, bilateral ear pain Cardiovascular: denies chest pain Respiratory: denies SOB, cough GI: denies abdominal pain, vomiting, diarrhea : denies flank pain MSK: denies back pain, neck pain, arthralgias, myalgias Skin: denies rash Neuro: denies headaches, numbness, weakness PFSH All Active Problems (Updated 12/10/21 @ 10:45 by Danica Us MD) Pharyngitis (Acute) No-show for appointment (Acute) Bright red rectal bleeding (Acute) History of hemorrhoids (Acute) Depressed (Chronic) Rash (Acute) Humerus lesion, right (Acute) Tendonitis of long head of biceps brachii of right shoulder (Acute) Viral infection (Acute) Tonsillitis (Acute) Upper respiratory tract infection (Acute) Sinusitis, acute (Acute) Left foot pain (Acute) Smoker (Acute 09/23/17) Increased body mass index (BMI) (Acute 10/23/17) Medical History Depression Hemorrhoids Surgical History (Updated 06/21/21 @ 12:15 by Ebonie Perez DO) No significant past surgical history Family History Mother Asthma Father Alcohol abuse Essential hypertension Diabetes Paternal Grandfather Parkinson disease Paternal Grandmother Essential hypertension Asthma Social History Smoking/Tobacco Use Status: Current every day Tobacco Type: e-cigarettes Tobacco: How many years used: 4 Quit status: considering quitting Second Hand Exposure: Yes Counseling given: counseling >3 minutes Smoking risk assessment performed?: Yes Alcohol Intake: current Alcohol Intake frequency: a few times a week Alcohol type: beer Drug use: Occasionally Substance use type: marijuana Caregiver/Support person: No Household members: family Housing: house Pets and animals: Yes Pets and animals: dog(s), horse(s), turtle(s) and farm animals Sexually active: No Do you think of yourself as: straight/heterosexual Current gender identity: female What is your relationship status?: never How often do you talk on the phone with friends or family?: three or more times per week How often do you get together with friends or relatives?: three or more times per week How often do you attend anabaptist or oriental orthodox services?: 4 or more times per year Do you belong to any clubs or organized social groups?: no Panel score (0-1 are the most socially isolated patients): 2 What type of physical activity do you participate in: walking and other 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, BARN [employer]ORES Duration: 15-30 minutes/day Frequency: 5-6 times per week Yadira/Church: Hinduism Do you feel safe at home: Yes Do you feel safe in your relationship?: Yes Exam Narrative Exam Narrative: Constitutional: well and [id number], pleasant, conversing normally HENT: head atraumatic/normocephalic/normal inspection, mucous membranes moist, erythema of the posterior pharynx, tonsillar edema +1 b/l, uvula midline, no exudate, no elevation of tongue, no pooling of secretions or drooling, no intra- oral lesion, b/l TMs and canals normal, no mastoid TTP or erythema Eyes: conjunctiva normal, sclera normal, pupils 3mm b/l Neck: no stridor, normal ROM, trachea midline, no posterior or anterior cervical LAD, full painless ROM Chest: normal inspection Resp: normal work of breathing, speaking in full sentences Cardio: normal rate, normal rhythm Skin: warm, dry, normal color, no rash Neuro: alert, not altered, grossly non-focal, normal tone Ext: moving all extremities equally Psych: normal mood, normal affect, normal behavior Course Vital Signs Vital signs: Vital Signs Temperature 36.3 C L 12/10/21 09:47 Pulse 111 H 12/10/21 09:47 Respiratory Rate 16 12/10/21 09:47 Blood Pressure 135/88 12/10/21 09:47 Pulse Oximetry 98 12/10/21 09:47 Temperature 36.3 C L 12/10/21 09:47 Temperature Source Temporal Artery Scan 12/10/21 09:47 Pulse 111 H 12/10/21 09:47 Respiratory Rate 16 12/10/21 09:47 Respiratory Effort Non-Labored 12/10/21 09:51 Blood Pressure 135/88 12/10/21 09:47 Blood Pressure Position Sitting 12/10/21 09:47 Pulse Oximetry 98 12/10/21 09:47 Oxygen Delivery Method Room Air 12/10/21 09:47 Oxygen Flow Rate 0 12/10/21 09:47 Pain Level 6 12/10/21 09:47 Lab/Test Results Lab/Test Results: 12/10/21 09:54 Pharynx Group A Streptococcus Culture - Pending POC Strep Test-IRA(Rapid) Start: 12/10/21 10: 08 Freq: Status: Active Protocol: Document 12/10/21 10:09 TB (Rec: 12/10/21 10:09 TB [id number]) Strep test-IRA(Rapid)-POC POC-Strep test-IRA (Rapid) Negative POC-Strep test-IRA (Rapid) Negative PAWSS Have you Been Recently Intoxicated or Drunk Within the Last 30 days?: No Have you Ever Experienced Previous Episodes of Alcohol Withdrawal?: No Have you ever Experienced Withdrawal Seizures?: No Have you ever Experienced Delirium Tremens(DT)s?: No Have you ever undergone Alcohol Rehabilitation Treatment (i.e, inpt ot outpatient treatment programs)?: No Have you ever Experienced Blackouts?: No Have you ever Combined Alcohol with other Downers within the last 90 days?: No Have you ever Combined Alcohol with any other Substance of Abuse during the last 90 days?: No Positive Blood Alcohol level on Presentation? [PCS.BAL]: No Evidence of Increased Autonomic Activity (i.e. HR>120, tremor, sweating, agitation, nausea)?: No Result: 0
[2021-12-10] MEDS: Dexamethasone 4 MG/ML VIAL IM (10:55)
[2021-12-11 13:36] LABS: COVID-19 RT-PCR UVMMC Result Negative (Negative)
--- NOTE | 2021-12-11 15:12 | W.ED.FU ---
Follow Up Plan: Throat culture growing strep group G. I called and spoke with the patient she notes she continues to have pain although systenic symptoms have improved after dexamethasone. Plan to treat with penicillin 500 twice daily x7 days. I encouraged her to follow-up with her primary care physician return for any worsening or new concerning symptoms. Prescription was called to [facility]
--- NOTE | 2021-12-11 17:24 | NUR.NOTE ---
patient made aware of negative covid results.
== END 2021-12-10 11:15 | disposition home or self-care (01) ==
PROVIDERS: Emergency Provider Student in an Organized Health Care Education/Training Program
DX: J02.0 Streptococcal pharyngitis (principal); B95.4 Other streptococcus as the cause of diseases classified elsewhere
CPT/HCPCS: 87880; 96372; 99283; 99284; U0003; 87081; J1100

== ENCOUNTER 2021-12-14 12:43 | Outpatient (REF) | payer MEDICAID, SELFPAY ==
[2021-12-17 15:03] LABS: Chlamydia Result Negative (Negative); GC Result Negative (Negative)
== END 2021-12-14 12:44 | disposition home or self-care (01) ==
LOC: LBN 12:43
PROVIDERS: Visit Provider Nurse Practitioner Family
DX: Z11.3 Encounter for screening for infections with a predominantly sexual mode of transmission (principal)
CPT/HCPCS: 87491; 87591

== ENCOUNTER 2022-03-26 12:21 | Outpatient (REF) | payer MEDICAID, SELFPAY ==
--- NOTE | 2022-03-26 11:15 | PAPFT_PTH ---
PATIENT: Yadira Adams LOC: [facility] U#:[id number] AGE/SX: 22/F ROOM: RE03/26/[address]: ELMER White : 2000 BED: DIS: 03/26/2022 SPEC #: [id number] RECD: 03/26/22 13:16 STATUS: ULICES REBhanu #: [id number] ERA: 03/26/22 11:[address]: Kavita Obrien DEPT: [facility] Cytology RECD BY: Sheila Bond ENTERED: 03/26/22 13:16 SP TYPE: PAPFT OTHR DR: Tiffany Jansen APRN Tissues: 1 - CX/ENDOCX FOR PAP SMEARS Procedures: PAP THIN PREP/[facility] Screening Comments: [id number]
[2022-03-27 14:00] LABS: Chlamydia Result Negative (Negative); GC Result Negative (Negative)
== END 2022-03-26 12:22 | disposition home or self-care (01) ==
LOC: LBN 12:21
PROVIDERS: Visit Provider Nurse Practitioner Family
DX: Z11.3 Encounter for screening for infections with a predominantly sexual mode of transmission (principal); Z12.4 Encounter for screening for malignant neoplasm of cervix
CPT/HCPCS: 87491; 87591; 88142

== ENCOUNTER 2022-08-11 11:56 | Emergency (ER) | payer MEDICAID, SELFPAY ==
[2022-08-11 12:01] VITALS: BP 144/89; PULSE 92; RESP 18; TEMP 36.5; O2SAT 98
[2022-08-11 12:37] LABS: Abs Immature Grans 0.02 10^3/uL (0.0-0.06); Absolute Basophil Count 0.02 10^3/uL (0.0-0.2); Absolute Eosinophil Count 0.14 10^3/uL (0.0-0.7); Absolute Lymphocyte Count 1.88 10^3/uL (1.2-3.4); Absolute Monocyte Count 0.59 10^3/uL (0.1-0.8); Absolute Neutrophil Count 3.87 10^3/uL (1.2-6.7); Basophils % 0.3; Eosinophils % 2.1; HCT 41.6 % (36.0-46.0); HGB 13.1 g/dL (11.2-15.7); Immature Grans % 0.3; Lymphocytes % 28.8; MCH 27.5 pg (27.0-33.0); MCHC 31.5 % (32.0-36.0); MCV 87 fL (80-95); MPV 8.7 fL (8.0-11.0); Neutrophils % 59.5; Platelet Count 286 10^3/uL (130-400); RBC 4.77 10^6/uL (3.93-5.22); RDW 13.3 % (11.7-14.6); RDW-SD 42.5 fL; WBC 6.52 10^3/uL (4.4-10.8)
[2022-08-11 12:53] LABS: ALT 24 U/L (14-59); AST 16 U/L (15-37); Albumin 3.7 g/dL (3.4-5.0); Alkaline Phosphatase 57 U/L (46-116); Anion Gap 11.5 mmol/L (3-11); BUN 12 mg/dL (7-18); Bilirubin, Total 0.4 mg/dL (0.2-1.0); CO2 26.5 mmol/L (21.0-32.0); CREATININE 1.2 mg/dL (0.55-1.02); Calcium 9.2 mg/dL (8.5-10.1); Chloride 104 mmol/L (98-107); Estimated GFR 65.64 (mL/min/1.73m2); Glucose 84 mg/dL (74-106); Lipase 85 U/L (73-393); Potassium 3.7 mmol/L (3.5-5.1); Sodium 142 mmol/L (136-145); Total Protein 7.9 g/dL (6.4-8.2)
--- NOTE | 2022-08-11 13:05 | ED.GENADUL_ITS ---
Discharge Plan Disposition Patient Disposition: Home Condition: Stable Discharge Details Clinical Impression: Vomiting and diarrhea Primary Care Provider: Timmy Bolton ED Provider: Abran Us Home Meds and New Rx's Prescriptions: Continued levonorgestrel-ethinyl estrad 0.1-20 mg-mcg tablet 1 tab PO DAILY Qty: 84 4RF No Action nitroglycerin 2 % ointment 1 inch topical BID Qty: 60 0RF Rx Instructions: apply to affected area twice a day Discharge Instructions Instructions: Acute Diarrhea (ED) Additional Instructions: C. difficile testing is pending at time of discharge. If this test is positive you will be contacted to start treatment. Allow for bowel rest. Maintain a clear liquid diet today. You may advance your diet to bland foods and clear liquids tomorrow. Advance daily as tolerated thereafter. Please contact your primary care physician to arrange follow-up. Return to the ER immediately for any worsening or new concerning symptoms. Stand Alone Forms: Work Release Discharge Data Discharge Date/Time-TO BE ENTERED AT DEPARTURE: 08/11/22 15:20 Medical Decision Making 1308 -- 22-year-old female here with vomiting and loose stool since yesterday. Patient appears hypovolemic. Plan for IV fluid bolus. Offered antiemetic and patient declined noting no nausea at this time. 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 I will check C. difficile testing. Consider biliary disease and will obtain LFTs. 1445 --labs reviewed and nondiagnostic. C. difficile pending. Patient stable. Tolerating p.o. intake with no vomiting. Plan for discharge with outpatient follow-up. Sign Out No HPI General Mode of arrival: ambulatory . Date/Time Provider Initiated Documentation: 08/11/22 12:10 . Limitations to Documentation: no limitations . Information obtained by: patient . HPI Narrative: 22-year-old female presents with chief complaint of vomiting. Patient notes vomiting started yesterday morning. Vomiting has been severe at times. No associated nausea. She does note associated loose yellow and green stool. She has some upper abdominal discomfort that started after episodes of vomiting. No modifiers. Patient took a home test that was negative. Patient does note she recently stopped Depo-Provera and is transitioning to oral control. She did note some small menstrual flow today. Related Data Home Medications Medication Instructions Recorded Confirmed levonorgestrel-ethinyl estradiol 1 tab PO DAILY #84 tabs 06/04/22 08/28/22 0.1 mg-20 mcg tablet nitroglycerin 2 % transdermal 1 inch topical BID #60 grams 08/27/22 08/27/22 ointment Previous Rx's Medication Instructions Recorded levonorgestrel-ethinyl estradiol 1 tab PO DAILY #84 tabs 06/04/22 0.1 mg-20 mcg tablet nitroglycerin 2 % transdermal 1 inch topical BID #60 grams 08/27/22 ointment Allergies Allergy/AdvReac Type Severity Reaction Status Date / Time No Known Allergies Allergy Verified 08/27/22 12:27 General Stated Complaint: Abd Prob PILLO: 3 Review of Systems All systems reviewed & are unremarkable except as noted in HPI and below Constitutional Constitutional: Denies fever(s) Gastrointestinal Gastrointestinal: Reports as per HPI PFSH All Active Problems (Updated 08/27/22 @ 13:16 by Eileen Yap DO) Chronic anal fissure (Acute) Pelvic pain (Acute) Vomiting and diarrhea (Acute) Hemorrhoids, internal (Acute) Medical History Bright red rectal bleeding Depressed History of hemorrhoids Humerus lesion, right Increased body mass index (BMI) (10/23/17) Left foot pain Rash Smoker (09/23/17) Tendonitis of long head of biceps brachii of right shoulder Tonsillitis Surgical History No significant past surgical history Family History Mother Asthma Father Alcohol abuse Essential hypertension Diabetes Paternal Grandfather Parkinson disease Paternal Grandmother Essential hypertension Asthma Social History Smoking/Tobacco Use Status: Current every day Tobacco Type: e-cigarettes Tobacco: How many years used: 4 Quit status: considering quitting Second Hand Exposure: Yes Counseling given: counseling >3 minutes Smoking risk assessment performed?: Yes Alcohol Intake: current Alcohol Intake frequency: a few times a week Alcohol type: beer Drug use: Occasionally Substance use type: marijuana Caregiver/Support person: No Household members: family Housing: house Pets and animals: Yes Pets and animals: dog(s), horse(s), turtle(s) and farm animals Sexually active: No Do you think of yourself as: straight/heterosexual Current gender identity: female What is your relationship status?: never How often do you talk on the phone with friends or family?: three or more times per week How often do you get together with friends or relatives?: three or more times per week How often do you attend taoism or oriental orthodox services?: 4 or more times per year Do you belong to any clubs or organized social groups?: no Panel score (0-1 are the most socially isolated patients): 2 What type of physical activity do you participate in: walking and other 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 Date GA/Weeks # Preg Succ Route Wgt Sex Labor Lgth Anesth esia Location Prov Complic 07/29/21 4 Delivery Date: 07/29/21 Last Updated by: Tamiko Beach MD [facility] Exam Const General: cooperative and no acute distress Eyes Conjunctivae: normal conjunctivae Sclera: normal sclerae Neck Neck: trachea midline and supple Resp Auscultation: clear to auscultation bilaterally, no rales, no rhonchi and no wheezes Cardio Rate: regular rate and not tachycardic Rhythm: regular rhythm GI Palpation: soft, not firm, no guarding, no masses, not rigid and tender (minimally ttp upper abd) Samuel's sign negative Skin General skin exam: no rashes or lesions noted Neuro General: patient alert, patient awake, patient oriented x3 and tone normal Extrem General: no edema Psych Appearance: grossly normal Mental Status: mental status grossly normal Speech and Movement: speech and movement normal Course Vital Signs Vital signs: Vital Signs Temperature 36.5 C 08/11/22 12:01 Pulse 92 H 08/11/22 12:01 Respiratory Rate 18 08/11/22 12:01 Blood Pressure 144/89 H 08/11/22 12:01 Pulse Oximetry 98 08/11/22 12:01 Temperature 36.5 C 08/11/22 12:01 Temperature Source Oral 08/11/22 12: Pulse 92 H 08/11/22 12:01 Respiratory Rate 18 08/11/22 12:01 Blood Pressure 144/89 H 08/11/22 12:01 Pulse Oximetry 98 08/11/22 12:01 Oxygen Delivery Method Room Air 08/11/22 12: Oxygen Flow Rate 0 08/11/22 12:01 Pain Level 4 08/11/22 12:01 Lab/Test Results Lab/Test Results: Laboratory Tests Range/Units 08/11/22 08/11/22 12:30 12:30 WBC (4.4-10.8) 10^3/uL 6.52 RBC (3.93-5.22) 10^6/uL 4.77 Hgb (11.2-15.7) g/dL 13.1 Hct (36.0-46.0) % 41.6 MCV (80-95) fL 87 MCH (27.0-33.0) pg 27.5 MCHC (32.0-36.0) % 31.5 L RDW (11.7-14.6) % 13.3 Plt Count (130-400) 10^3/uL 286 MPV (8.0-11.0) fL 8.7 Immature Gran % 0.3 Neutrophils % 59.5 Lymphocytes % 28.8 Monocytes % 9.0 Eosinophils % 2.1 Basophils % 0.3 Nucleated RBC % (0.0-0.3) % 0.0 Absolute Neutrophils (1.2-6.7) 10^3/uL 3.87 Absolute Lymphocytes (1.2-3.4) 10^3/uL 1.88 Absolute Monocytes (0.1-0.8) 10^3/uL 0.59 Absolute Eosinophils (0.0-0.7) 10^3/uL 0.14 Absolute Basophils (0.0-0.2) 10^3/uL 0.02 Sodium (136-145) mmol/L 142 Potassium (3.5-5.1) mmol/L 3.7 Chloride (98-107) mmol/L 104 Carbon Dioxide (21.0-32.0) mmol/L 26.5 Anion Gap (3-11) mmol/L 11.5 H BUN (7-18) mg/dL 12 Creatinine (0.55-1.02) mg/dL 1.2 H Est GFR (CKD-EPI 2020) (mL/min/1.73m2) 65.64 Glucose (74-106) mg/dL 84 Calcium (8.5-10.1) mg/dL 9.2 Total Bilirubin (0.2-1.0) mg/dL 0.4 AST (15-37) U/L 16 ALT (14-59) U/L 24 Alkaline Phosphatase (46-116) U/L 57 Total Protein (6.4-8.2) g/dL 7.9 Albumin (3.4-5.0) g/dL 3.7 Lipase (73-393) U/L 85
[2022-08-11] MEDS: Lactated Ringers 1,000 ML 1000 ML IV (13:18)
[2022-08-11 14:42] VITALS: BP 125/65; PULSE 90; RESP 18; TEMP 36.8; O2SAT 100
[2022-08-11 15:13] VITALS: BP 129/49; PULSE 81; RESP 20; O2SAT 100
[2022-08-11 15:49] LABS: C Diff PCR Negative (Negative)
--- NOTE | 2022-08-11 16:13 | NUR.NOTE ---
Nursing Note: Referral given to Care Management for needs PCP/establish care; routine follow up. Was told that Tatianna King was no longer a PCP per Dr Abran Us.
== END 2022-08-11 15:20 | disposition home or self-care (01) ==
PROVIDERS: Emergency Provider Student in an Organized Health Care Education/Training Program; PCP Nurse Practitioner Family
DX: R19.7 Diarrhea, unspecified (principal); R11.10 Vomiting, unspecified
CPT/HCPCS: 36415; 80053; 83690; 87493; 96360; 99284; 85025

== ENCOUNTER 2022-08-16 11:11 | Emergency (ER) | payer MEDICAID, SELFPAY ==
[2022-08-16 11:36] VITALS: BP 104/76; PULSE 83; RESP 18; O2SAT 98
--- NOTE | 2022-08-16 12:00 | ED.GENADUL_ITS ---
Discharge Plan Disposition Patient Disposition: Home Discharge Details Clinical Impression: Hemorrhoids, internal Primary Care Provider: Timmy Bolton ED Provider: Julio Cesar Grace Home Meds and New Rx's Prescriptions: New hydrocortisone acetate [Anusol-HC] 25 mg suppository 25 mg OR BID Qty: 12 0RF No Action levonorgestrel-ethinyl estrad 0.1-20 mg-mcg tablet 1 tab PO DAILY Qty: 84 4RF Discharge Instructions Additional Instructions: Please make sure that you are always taking some type of stool softener. Drink plenty of fluids. Please use the Anusol suppositories as prescribed. If this persist please follow-up with your primary care doctor who may refer you to surgery for further evaluation. Medical Decision Making Patient with history of constipation and hemorrhoids. Presents to the emergency department status post large bowel movement with rectal pain. Endoscopy performed reveals internal hemorrhoids. No fissure. Patient to be discharged home with Anusol suppositories. Follow-up PCP Sign Out No HPI General Date/Time Provider Initiated Documentation: 08/16/22 11:17 . HPI Narrative: 22-year-old presented to the emergency department for evaluation of rectal discomfort as well as rectal bleeding secondary to a hard large stool this morning. She states that last week she had an episode of diarrhea. The diarrhea subsided over the course of the week and then she became constipated. She woke up this morning requesting stronger to go to the bathroom and usually was normally constipated. She felt pain during defecation and then noticed some dripping blood in the toilet. She has had some rectal discomfort since then. She has had history of hemorrhoids in the past but she states it has not been th is bad. She states that she cannot handle having hemorrhoids again. No nausea no vomiting. No fevers no chills. Related Data Home Medications Medication Instructions Recorded Confirmed levonorgestrel-ethinyl estradiol 1 tab PO DAILY #84 tabs 06/04/22 08/16/22 0.1 mg-20 mcg tablet hydrocortisone acetate 25 mg 25 mg OR BID #12 ea 08/16/22 rectal suppository (Anusol-HC) Previous Rx's Medication Instructions Recorded levonorgestrel-ethinyl estradiol 1 tab PO DAILY #84 tabs 06/04/22 0.1 mg-20 mcg tablet hydrocortisone acetate 25 mg 25 mg OR BID #12 ea 08/16/22 rectal suppository (Anusol-HC) Allergies Allergy/AdvReac Type Severity Reaction Status Date / Time No Known Allergies Allergy Verified 08/16/22 11:53 General Stated Complaint: Abd Prob PILLO: 3 Review of Systems Narrative: Constitutional is been negative for fever chills, negative for malaise, negative for fatigue. Cardiovascular no chest pain, no shortness of breath with exertion, no palpitations Respiratory: No shortness of breath, no cough GI: No abdominal pain, no diarrhea, MSK: No myalgias, no arthralgias Skin: No rash Neurological: No headache Psych: No anxiety, no depression Endo: No weight gain no weight loss Hematology/lymph: no easy bleeding, not on blood thinners PFSH All Active Problems (Updated 08/16/22 @ 12:22 by Julio Cesar Grace MD) Vomiting and diarrhea (Acute) Hemorrhoids, internal (Acute) Medical History Bright red rectal bleeding Depressed History of hemorrhoids Humerus lesion, right Increased body mass index (BMI) (10/23/17) Left foot pain Rash Smoker (09/23/17) Tendonitis of long head of biceps brachii of right shoulder Tonsillitis Surgical History No significant past surgical history Family History Mother Asthma Father Alcohol abuse Essential hypertension Diabetes Paternal Grandfather Parkinson disease Paternal Grandmother Essential hypertension Asthma Social History Smoking/Tobacco Use Status: Current every day Tobacco Type: e-cigarettes Tobacco: How many years used: 4 Quit status: considering quitting Second Hand Exposure: Yes Counseling given: counseling >3 minutes Smoking risk assessment performed?: Yes Alcohol Intake: current Alcohol Intake frequency: a few times a week Alcohol type: beer Drug use: Occasionally Substance use type: marijuana Caregiver/Support person: No Household members: family Housing: house Pets and animals: Yes Pets and animals: dog(s), horse(s), turtle(s) and farm animals Sexually active: No Do you think of yourself as: straight/heterosexual Current gender identity: female What is your relationship status?: never How often do you talk on the phone with friends or family?: three or more times per week How often do you get together with friends or relatives?: three or more times per week How often do you attend sabianist or worship services?: 4 or more times per year Do you belong to any clubs or organized social groups?: no Panel score (0-1 are the most socially isolated patients): 2 What type of physical activity do you participate in: walking and other 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 Date GA/Weeks # Preg Succ Route Wgt Sex Labor Lgth Anesth esia Location [facility] 07/29/21 4 Delivery Date: 07/29/21 Last Updated by: Tamiko Beach MD Medical [facility] at Exam Narrative Exam Narrative: General: A,A Ox3, Calm, no apparent distress, well developed, pleasant and cooperative Head Size/Shape: normocephalic, atraumatic Eyes Pupils: PERRLA Extraocular Mobility: intact and symmetrical Conjunctiva: non-injected, anicteric, no discharge Ears, Nose, Throat Nares: patent bilaterally Oral Cavity: moist Respiratory Respiratory Effort: no dyspnea Cardiovascular Heart Auscultation: Normal cap refill Abdomen Inspection and Palpation: soft, non-tender, non-distended, no hepatosplenomegaly Musculoskeletal System Joints, Bones, and Muscles: no deformities Extremities: warm and well-perfused, no cyanosis, capillary refill <2 seconds Skin Skin Inspection: no rash, no lesions, no bruising Neurological Motor: normal tone, normal strength, moving all extremities equally Psychiatric: good insight, good judgement, normal mood and affect Course Vital Signs Vital signs: Vital Signs Pulse 83 08/16/22 11:36 Respiratory Rate 18 08/16/22 11:36 Blood Pressure 104/76 08/16/22 11:36 Pulse Oximetry 98 08/16/22 11:36 Pulse 83 08/16/22 11:36 Respiratory Rate 18 08/16/22 11:36 Respiratory Effort Non-Labored 08/16/22 11:51 Blood Pressure 104/76 08/16/22 11:36 Blood Pressure Position Sitting 08/16/22 11:36 Pulse Oximetry 98 08/16/22 11:36 Oxygen Delivery Method Room Air 08/16/22 11:36 Oxygen Flow Rate 0 08/16/22 11:36 Pain Level 9 08/16/22 11:36 Procedures Other Description: Anoscopy. With pedicab driver in the room patient had endoscopy. Tolerated well. This revealed 2 internal hemorrhoids no active bleeding.
== END 2022-08-16 12:45 | disposition home or self-care (01) ==
PROVIDERS: Emergency Provider Emergency Medicine; PCP Nurse Practitioner Family
DX: K64.8 Other hemorrhoids (principal)
CPT/HCPCS: 99283; 46600

== ENCOUNTER → 2022-08-29 01:09 | Outpatient (CLI) | payer MEDICAID, SELFPAY ==
--- NOTE | 2022-08-29 07:45 | DI.US_ITS ---
Exam(s) US PELVIS TRANSVAGINAL EXAM: US PELVIS TRANSVAGINAL CLINICAL HISTORY: pelvic pain/ovarian cysts,r10.2,k60.1,anal fissure TECHNIQUE: Transabdominal and transvaginal imaging was performed using standard protocol. COMPARISON: No exams were available for comparison FINDINGS: KIDNEYS: Kidneys are symmetric in size. No evidence of renal calculi. No evidence of hydronephrosis. No renal mass or cyst identified. UTERUS: Anteverted. 6.2 x 3.0 x 5.2 cm Endometrium: 3 mm Myometrium: Unremarkable. Cervix: Small nabothian cyst. OVARIES: Right: Cyst or mass: None. Left: Cyst or mass: None. DOPPLER: Color: Symmetric and uniform flow to both ovaries. No hyperemia. CUL-DE-SAC: Free fluid: None. IMPRESSION: 1. Normal-appearing uterus with endometrial stripe within normal limits. 2. Unremarkable bilateral ovaries. DATA REPOSITORY:
== END ==
PROVIDERS: PCP Nurse Practitioner Family; Visit Provider Surgery
DX: K60.1 Chronic anal fissure (principal); R10.2 Pelvic and perineal pain
CPT/HCPCS: 76830; 76856

== ENCOUNTER 2022-10-22 20:54 | Outpatient (REF) | payer MEDICAID, SELFPAY ==
[2022-10-22 21:42] LABS: TSH (W/Ref FT4) 2.39 uIU/mL (0.36-3.74)
== END 2022-10-22 20:55 | disposition home or self-care (01) ==
LOC: LBN 20:54
PROVIDERS: PCP Nurse Practitioner Family; Visit Provider Nurse Practitioner Family
DX: F41.1 Generalized anxiety disorder (principal)
CPT/HCPCS: 84443

== ENCOUNTER 2022-12-05 02:30 | Outpatient (CLI) | payer MEDICAID, SELFPAY ==
[2022-12-05 16:13] LABS: HCG Quant, Pregnancy < 1 mIU/mL (1-3)
== END 2022-12-05 02:31 | disposition home or self-care (01) ==
LOC: LBO 02:30
PROVIDERS: PCP Nurse Practitioner Family; Visit Provider Nurse Practitioner Women's Health
DX: N92.5 Other specified irregular menstruation (principal)
CPT/HCPCS: 36415; 84702

== ENCOUNTER 2022-12-12 16:12 | Outpatient (CLI) | payer MEDICAID, SELFPAY ==
[2022-12-12 15:52] LABS: Abs Immature Grans 0.04 10^3/uL (0.0-0.06); Absolute Basophil Count 0.03 10^3/uL (0.0-0.2); Absolute Eosinophil Count 0.11 10^3/uL (0.0-0.7); Absolute Lymphocyte Count 2.77 10^3/uL (1.2-3.4); Absolute Monocyte Count 0.62 10^3/uL (0.1-0.8); Absolute Neutrophil Count 7.25 10^3/uL (1.2-6.7); Basophils % 0.3; HGB 12.7 g/dL (11.2-15.7); Immature Grans % 0.4; Lymphocytes % 25.6; MCH 28.5 pg (27.0-33.0); MCHC 33.4 % (32.0-36.0); MCV 85 fL (80-95); MPV 8.8 fL (8.0-11.0); Monocytes % 5.7; Platelet Count 323 10^3/uL (130-400); RBC 4.46 10^6/uL (3.93-5.22); RDW 13.8 % (11.7-14.6); RDW-SD 43.1 fL; WBC 10.82 10^3/uL (4.4-10.8)
[2022-12-12 16:54] LABS: ALT 43 U/L (14-59); AST 26 U/L (15-37); Albumin 3.7 g/dL (3.4-5.0); Alkaline Phosphatase 61 U/L (46-116); Anion Gap 9.5 mmol/L (3-11); BUN 11 mg/dL (7-18); Bilirubin, Total 0.4 mg/dL (0.2-1.0); C-Reactive Protein 2.13 mg/dL (0.0-0.3); CO2 26.5 mmol/L (21.0-32.0); CREATININE 1.2 mg/dL (0.55-1.02); Calcium 9.4 mg/dL (8.5-10.1); Chloride 103 mmol/L (98-107); Estimated GFR 65.64 (mL/min/1.73m2); Glucose 91 mg/dL (74-106); Lipase 26 U/L (16-77); Potassium 3.5 mmol/L (3.5-5.1); Sodium 139 mmol/L (136-145); Total Protein 7.7 g/dL (6.4-8.2)
== END 2022-12-12 16:13 | disposition home or self-care (01) ==
LOC: LBO 16:13
PROVIDERS: PCP Nurse Practitioner Family; Visit Provider Surgery
DX: F17.200 Nicotine dependence, unspecified, uncomplicated (principal); R10.11 Right upper quadrant pain; R11.2 Nausea with vomiting, unspecified; Z30.41 Encounter for surveillance of contraceptive pills; Z68.41 Body mass index [BMI] 40.0-44.9, adult; C50.919 Malignant neoplasm of unspecified site of unspecified female breast
CPT/HCPCS: 36415; 80053; 83690; 84703; 85025; 86140

== ENCOUNTER 2022-12-13 00:33 | Outpatient (CLI) | payer MEDICAID, SELFPAY ==
--- NOTE | 2022-12-13 08:15 | DI.US_ITS ---
Exam(s) US ABDOMEN EXAM: US ABDOMEN CLINICAL HISTORY: POSTPRANDIAL ruq pain /N V,R10.11 TECHNIQUE: Ultrasound abdomen performed using standard protocol. COMPARISON: US US PELVIS TRANSVAGINAL from 08/29/2022 FINDINGS: ABDOMINAL AORTA AND IVC: Visualized portions normal caliber. PANCREAS: Normal where visualized. LIVER: Fatty infiltration of the liver. Hepatopedal flow in the Portal Vein. GALLBLADDER:No evidence of cholelithiasis. No evidence of wall thickening. No pericholecystic fluid i dentified. BILIARY SYSTEM: Common bile duct measures < 7 mm. No intrahepatic biliary ductal dilation. CISNEROS'S SIGN: Negative. KIDNEYS: Kidneys are symmetric in size. No evidence of renal calculi. No evidence of hydronephrosis. No renal mass or cyst identified. SPLEEN: Not enlarged. ASCITES: None seen. IMPRESSION: Hepatic steatosis. DATA REPOSITORY:
== END 2022-12-13 00:53 ==
PROVIDERS: PCP Nurse Practitioner Family; Visit Provider Surgery
DX: F17.200 Nicotine dependence, unspecified, uncomplicated (principal); R10.11 Right upper quadrant pain; R11.2 Nausea with vomiting, unspecified; Z30.41 Encounter for surveillance of contraceptive pills; Z68.41 Body mass index [BMI] 40.0-44.9, adult; K76.0 Fatty (change of) liver, not elsewhere classified
CPT/HCPCS: 76700

== ENCOUNTER 2022-12-13 02:13 | Outpatient (CLI) | payer MEDICAID, SELFPAY ==
[2022-12-13 12:13] LABS: HCG Qual (Serum) Negative
== END 2022-12-13 02:14 | disposition home or self-care (01) ==
PROVIDERS: PCP Nurse Practitioner Family; Visit Provider Surgery
DX: Z30.41 Encounter for surveillance of contraceptive pills
CPT/HCPCS: 36415; 84703

== ENCOUNTER 2022-12-27 00:17 | Outpatient (CLI) | payer MEDICAID, SELFPAY ==
--- NOTE | 2022-12-27 07:15 | DI.NM_ITS ---
Exam(s) NM HEPATOBILIARY CCK GRP EXAM: NM HEPATOBILIARY CCK GRP CLINICAL HISTORY: ruq pain postprandial/nausea,r11.2,r10.11. TECHNIQUE: Injected dose: 5 mCi Tc-99 mebrofenin Post-Gallbladder fillin.02 mcg/kg CCK intravenously over a 15min infusion. COMPARISON: Ultrasound 12/13/2022 reviewed FINDINGS: There is normal uptake and excretion of radiopharmaceutical by the liver and activity seen within the gallbladder lumen starting at 7 minutes post injection. In response to CCK infusion there is a lower than normal ejection fraction of only 18 percent demonst rated. This is significantly below the threshold of 35 percent is lower normal. IMPRESSION: 1. No evidence of obstruction of the cystic duct. 2. However, there is decreased gallbladder ejection fraction in response to CCK infusion, registering as only 18 percent ejection fracture. Lower limits of normal is 35 percent. This implies an elemen t of gallbladder dysfunction.
[2022-12-27] MEDS: Sincalide 5 MCG VIAL 2 MCG IJ (15:35)
== END 2022-12-27 00:37 ==
LOC: DI 00:17
PROVIDERS: PCP Nurse Practitioner Family; Visit Provider Surgery
DX: F41.1 Generalized anxiety disorder (principal); R10.11 Right upper quadrant pain; R11.2 Nausea with vomiting, unspecified; R21 Rash and other nonspecific skin eruption; Z68.41 Body mass index [BMI] 40.0-44.9, adult
CPT/HCPCS: 78227; J2805

== ENCOUNTER 2023-02-24 08:10 | Emergency (ER) | payer MEDICAID, SELFPAY ==
[2023-02-24 08:13] VITALS: BP 135/67; PULSE 83; RESP 17; TEMP 36.7; O2SAT 100
--- NOTE | 2023-02-24 08:15 | DI.CT_ITS ---
Exam(s) CT ABDOMEN PELVIS WO EXAM: CT ABDOMEN PELVIS WO CLINICAL HISTORY: lower abdominal pain, rectal bleeding. TECHNIQUE: Imaging Protocol: Axial computed tomography images with coronal and sagittal reformatted images were created and reviewed. Oral: no COMPARISON: No exams were available for comparison FINDINGS: ABDOMEN: Lung Bases: Normal where visualized. Liver: Enlarged. Fatty. No measurable mass. Gallbladder and biliary tract: Gallbladder somewhat contracted. No radiodense calculus or dilation. Pancreas: Normal density, no abnormal calcifications or inflammatory process. Spleen: Normal. Kidneys: Normal size, contour and axis. No radiodense stones or obstructive uropathy. No masses seen. Adrenal glands: No masses seen. Lymph nodes: Within normal limits. Abdominal Aorta: Abdominal portion non-dilated. PELVIS: Bladder: Symmetric distention, no gross wall thickening. Bowel: No obstruction or bowel wall thickening. Normal quantity of stool. Appendix normal. Peritoneal cavity: No ascites, collection or mesenteric inflammatory response. Reproductive organs: Within normal limits. Bones: Within normal limits. IMPRESSION: Unremarkable CT scan of the abdomen and pelvis. RADIATION DOSE DELIVERED: 1,479.39mGy.cm Total DLP DATA REPOSITORY: All CT scans at this facility are submitted to the National Radiology Data Registry (NRDR) Dose Index Registry (DIR) with the [employer] (ACR). RADIATION OPTIMIZATION: All CT scans at this facility use at least one of these dose optimization te chniques: automated exposure control; mA and/or kV adjustment per patient size (includes targeted exa ms where dose is matched to clinical indication); or iterative reconstruction.
--- NOTE | 2023-02-24 08:31 | ED.GENADUL_ITS ---
Discharge Plan Disposition Patient Disposition: Home Condition: Stable Discharge Details Clinical Impression: Bright red rectal bleeding Primary Care Provider: Timmy Bolton ED Provider: Earnest Napier Home Meds and New Rx's Prescriptions: Continued buspirone 10 mg tablet 10 mg PO TID MDD 60 mg PRN (Reason: anxiety) Qty: 90 0RF Rx Instructions: May take up to 20 mg po TID prn anxiety metformin 500 mg tablet 500 mg PO BID Qty: 180 0RF Rx Instructions: Take 1 tablet twice a day norethindrone (contraceptive) [Deblitane] 0.35 mg tablet 0.35 mg PO DAILY Qty: 84 4RF pantoprazole [Protonix] 40 mg tablet,delayed release (DR/EC) 40 mg PO DAILY Qty: 90 12RF fluoxetine 10 mg capsule 10 mg PO QAM Qty: 30 0RF fluconazole [Diflucan] 150 mg tablet 150 mg PO ONCE Qty: 1 1RF Patient Comments: No longer taking 02/24/23 CT Rx Instructions: as a single dose. If still having symptoms in 3-5 days repeat the dose. Discharge Instructions Additional Instructions: Your blood work and cat scan did not show concerning findings at this time follow up with your general surgeon and discuss having a colonoscopy if this continues if you feel more ill, have severe worsening pain or difficulty breathing return to the emergency department Stand Alone Forms: Work Release Medical Decision Making 23 yo female with history of anxiety, prior episodes of rectal bleeding and hemorrhoids, comes in with cc of bloody stools since yesterday and lowe abdominal discomfort with the left being moreso then the right. She had n/v last night but none this morning, denies fevers, chills, chest pain dyspnea. She arrives stable speaking clearly in no distress. Abd is soft on exam but she does have tenderness in the llq without guarding. She has no external hemorrhoids, no blood on exam currently. Given her rectal bleeding and lower abdominal pain will proceed with cbc, cmp, lipase, and ct abd/pelvis to primarily evaluate for diverticulitis vs colitis imaging and labs unremarkable other then very mild elevation in lft's, has no ruq tenderness, is reportedly going to have cholecystectomy as an outpatient and is scheduled to see them. She is stable and no recurrent bleeding here, suspect internal hemorrhoids, will have her f/u with her surgeon and possibly have colonoscopy, return precautions given Differential Diagnosis Differential Diagnosis: internal hemorrhoids, diverticulitis Medical Records Medical records reviewed: Yes I reviewed the patient's medical records. Lab Data Lab results reviewed: Yes I reviewed the patient's lab results. HPI General Mode of arrival: ambulatory . Date/Time Provider Initiated Documentation: 02/24/23 08:17 . Limitations to Documentation: no limitations . Information obtained by: patient . History of Present Illness 23 year old F presents to the emergency department with the chief complaint of rectal bleeding, described as moderate, Patient started experiencing this day(s) (1) and it has been intermittent. No relieving factors improve symptom(s), No exacerbating factors reported . Patient notes denies fever/chills. Patient did receive the following treatments prior to arrival, none Related Data Home Medications Medication Instructions Recorded Confirmed fluoxetine 10 mg capsule 10 mg PO QAM #30 caps 11/25/22 02/24/23 pantoprazole 40 mg tablet,delayed 40 mg PO DAILY #90 tabs 01/09/23 02/24/23 release (Protonix) norethindrone (contraceptive) 0.35 0.35 mg PO DAILY #84 tabs 01/13/23 02/24/23 mg tablet (Deblitane) buspirone 10 mg tablet 10 mg PO TID PRN anxiety #90 tabs 01/15/23 02/24/23 metformin 500 mg tablet 500 mg PO BID #180 tabs 01/15/23 02/24/23 fluconazole 150 mg tablet 150 mg PO ONCE #1 tab 01/22/23 (Diflucan) Previous Rx's Medication Instructions Recorded fluoxetine 10 mg capsule 10 mg PO QAM #30 caps 11/25/22 pantoprazole 40 mg tablet,delayed 40 mg PO DAILY #90 tabs 01/09/23 release (Protonix) norethindrone (contraceptive) 0.35 0.35 mg PO DAILY #84 tabs 01/13/23 mg tablet (Deblitane) buspirone 10 mg tablet 10 mg PO TID PRN anxiety #90 tabs 01/15/23 metformin 500 mg tablet 500 mg PO BID #180 tabs 01/15/23 fluconazole 150 mg tablet 150 mg PO ONCE #1 tab 01/22/23 (Diflucan) Allergies Allergy/AdvReac Type Severity Reaction Status Date / Time No Known Allergies Allergy Verified 02/24/23 08:16 General Stated Complaint: GI Bleed PILLO: 3 Review of Systems All systems reviewed & are unremarkable except as noted in HPI and below Constitutional Constitutional: Denies chills, Denies fever(s) and Denies weakness Cardiovascular Cardiovascular: Denies chest pain and Denies dyspnea Respiratory Respiratory: Denies cough and Denies dyspnea Gastrointestinal Gastrointestinal: Reports abdominal pain, Reports hematochezia, Reports nausea and Reports vomiting Musculoskeletal Musculoskeletal: Denies joint swelling Neurologic Neurologic: Denies weakness PFS All Active Problems (Updated 02/24/23 @ 10:01 by Earnest Napier MD) Bright red rectal bleeding (Acute) Chronic GERD (Acute) History of anal fissures (Acute) Biliary dyskinesia (Acute) BMI 40.0-44.9, adult (Acute) Postprandial RUQ pain (Acute) Pelvic pain (Acute) Oral contraceptive use (Acute) Rhinosinusitis (Acute) Generalized anxiety disorder (Acute) Medical History Bright red rectal bleeding Depressed History of hemorrhoids Humerus lesion, right Increased body mass index (BMI) (10/23/17) Left foot pain Rash Smoker (09/23/17) Tendonitis of long head of biceps brachii of right shoulder Tonsillitis URI (upper respiratory infection) Surgical History No significant past surgical history Family History Mother Asthma Father Alcohol abuse Essential hypertension Diabetes Paternal Grandfather Parkinson disease Paternal Grandmother Essential hypertension Asthma Social History Smoking/Tobacco Use Status: Current every day Tobacco Type: e-cigarettes Tobacco: How many years used: 4 Quit status: considering quitting Second Hand Exposure: Yes Counseling given: counseling >3 minutes Smoking risk assessment performed?: Yes Alcohol Intake: current Alcohol Intake frequency: a few times a week Alcohol type: beer Drug use: Occasionally Substance use type: marijuana Caregiver/Support person: No Household members: family Housing: house Pets and animals: Yes Pets and animals: dog(s), horse(s), turtle(s) and farm animals Sexually active: No Do you think of yourself as: straight/heterosexual Current gender identity: female What is your relationship status?: never How often do you talk on the phone with friends or family?: three or more times per week How often do you get together with friends or relatives?: three or more times per week How often do you attend quaker or methodist services?: 4 or more times per year Do you belong to any clubs or organized social groups?: no Panel score (0-1 are the most socially isolated patients): 2 What type of physical activity do you participate in: walking and other 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 Date GA/Weeks # Preg Succ Route Wgt Sex Labor Lgth Anesth esia Location [facility] 07/29/21 4 Delivery Date: 07/29/21 Last Updated by: Tamiko Beach MD [facility] Exam Const General: no acute distress Orientation: alert HENMT Head: normal to inspection Ears: external ears normal General nose exam: external nose normal Mouth: moist mucous membranes Eyes General: appearance normal, both eyes and all related structures Neck Neck: normal visual inspection Resp Effort & Inspection: normal respiratory effort and able to speak in complete sentences Cardio Rate: regular rate GI Palpation: soft and tender Skin General skin exam: no rashes or lesions noted Neuro General: patient alert and patient oriented x3 Extrem General: normal to inspection Psych Mental Status: mental status grossly normal Course Vital Signs Vital signs: Vital Signs Temperature 36.7 C 02/24/23 08:13 Pulse 83 02/24/23 08:13 Respiratory Rate 17 02/24/23 08:13 Blood Pressure 135/67 02/24/23 08:13 Pulse Oximetry 100 02/24/23 08:13 Temperature 36.7 C 02/24/23 08:13 Temperature Source Temporal Artery Scan 02/24/23 08:13 Pulse 83 02/24/23 08:13 Respiratory Rate 17 02/24/23 08:13 Respiratory Effort Normal 02/24/23 08:15 Blood Pressure 135/67 02/24/23 08:13 Blood Pressure Position Sitting 02/24/23 08:13 Pulse Oximetry 100 02/24/23 08:13 Oxygen Delivery Method Room Air 02/24/23 08:13 Oxygen Flow Rate 0 02/24/23 08:13 Pain Level 6 02/24/23 08:19 PAWSS Have you Been Recently Intoxicated or Drunk Within the Last 30 days?: No Have you Ever Experienced Previous Episodes of Alcohol Withdrawal?: No Have you ever Experienced Withdrawal Seizures?: No Have you ever Experienced Delirium Tremens(DT)s?: No Have you ever undergone Alcohol Rehabilitation Treatment (i.e, inpt ot outpatient treatment programs)?: No Have you ever Experienced Blackouts?: No Have you ever Combined Alcohol with other Downers within the last 90 days?: No Have you ever Combined Alcohol with any other Substance of Abuse during the last 90 days?: No Result: 0
[2023-02-24] MEDS: Acetaminophen 500 MG TAB 1000 MG PO (08:39)
[2023-02-24] MEDS: Ondansetron 4 MG/2 ML VIAL IVP (08:39)
[2023-02-24 08:47] LABS: Abs Immature Grans 0.05 10^3/uL (0.0-0.06); Absolute Basophil Count 0.03 10^3/uL (0.0-0.2); Absolute Eosinophil Count 0.17 10^3/uL (0.0-0.7); Absolute Lymphocyte Count 2.45 10^3/uL (1.2-3.4); Absolute Monocyte Count 0.63 10^3/uL (0.1-0.8); Absolute Neutrophil Count 5.06 10^3/uL (1.2-6.7); Basophils % 0.4; HCT 42.4 % (36.0-46.0); HGB 13.4 g/dL (11.2-15.7); Immature Grans % 0.6; Lymphocytes % 29.2; MCH 27.7 pg (27.0-33.0); MCHC 31.6 % (32.0-36.0); MCV 88 fL (80-95); MPV 8.9 fL (8.0-11.0); Monocytes % 7.5; Neutrophils % 60.3; Platelet Count 312 10^3/uL (130-400); RBC 4.83 10^6/uL (3.93-5.22); RDW-SD 45.3 fL; WBC 8.39 10^3/uL (4.4-10.8)
[2023-02-24 08:58] LABS: PTT Activated 26.4 sec (21.5-31.9); Prothrombin Time 9.9 sec (9.3-11.0)
[2023-02-24 09:02] LABS: ALT 62 U/L (14-59); AST 38 U/L (15-37); Albumin 3.7 g/dL (3.4-5.0); Alkaline Phosphatase 76 U/L (46-116); Anion Gap 9.9 mmol/L (3-11); BUN 14 mg/dL (7-18); Bilirubin, Total 0.2 mg/dL (0.2-1.0); CO2 26.1 mmol/L (21.0-32.0); CREATININE 1.1 mg/dL (0.55-1.02); Chloride 106 mmol/L (98-107); Estimated GFR 72.41 (mL/min/1.73m2); Glucose 109 mg/dL (74-106); Lipase 50 U/L (16-77); Magnesium 1.9 mg/dL (1.8-2.4); Sodium 142 mmol/L (136-145); Total Protein 7.8 g/dL (6.4-8.2)
[2023-02-24 09:57] VITALS: BP 118/68; PULSE 72; RESP 18; TEMP 36.8; O2SAT 98
== END 2023-02-24 10:15 | disposition home or self-care (01) ==
PROVIDERS: Emergency Provider Emergency Medicine; PCP Nurse Practitioner Family
DX: K62.5 Hemorrhage of anus and rectum (principal)
CPT/HCPCS: 36415; 80053; 81025; 83690; 86850; 86900; 86901; 96374; 99284; 74176; 83735; 85025; 85610; 85730; J2405

== ENCOUNTER 2023-03-18 06:36 | Day surgery (SDC) | payer MEDICAID, SELFPAY ==
--- NOTE | 2023-03-17 22:14 | ROE_ITS ---
Date of service: 03/18/23 Time of Service: 09:22 Operative Note Operative Note DATE OF PROCEDURE: 03/18/23 PRE-OP DIAGNOSIS: biliary dyskinesia POST-OP DIAGNOSIS: same PROCEDURE: laprascopic appendectomy SURGEON: Eileen Dumas WIRE STITCHER: Brooklynn Lux ANESTHESIA TYPE: Local By Surgeon and General LMA/ETT Refer to Anesthesia Record ESTIMATED BLOOD LOSS: 5 PATHOLOGY: other COMPLICATIONS: None Patient was transported to: PACU Patient's condition: stable Procedure Description: The pt is seen at the request of there PCP regarding acute on chronic cholecystitis, cholelithiasis. The pt has failed outpt conservative medical measures and is here today for laparoscopic cholecystectomy. Informed consent was obtained, explaining risks and benefits of the procedure including but not limited to bleeding, infection, pneumonia, blood clots, possible damage to bowel, bladder, blood vessels, bile ducts, possible open procedure, complications of general anesthesia and other unforetold complications. PROCEDURE: The patient agrees and is brought to the operative room suite and placed in supine position. Anesthesia was administered per the Department of Anesthesia. The patient did receive IV antibiotics. NG tube and Connell catheter are placed. The patient was prepped and draped in the usual sterile fashion using DuraPrep scrub solution. Pause for the cause was done. 30 mL of .25% Marcaine with epi was used for local anesthetization. A stab incision was made in the umbilicus and the Verres inserted. Drop test was positive and insufflation was begun. When 15 mm of pressure was noted on the monitor, the Veress was removed and #5 port inserted. The camera was inserted through the port and shows no damage to underlying structures. A 10 mm port was then placed in the epigastric position under direct visualization following creation of local field blocks as well as two 5 mm ports in the right upper quadrant. The camera was moved to one of the secondary ports so we could view the umbilical trocar site, and there is are no hernias or adhesions. The gallbladder fundus was grasped and retracted towards the right shoulder. Infundibulum was grasped and retracted laterally. The hepat- duodenal ligament is entered. The cystic duct and artery are dissected out and the most inferior portion of the gallbladder plate is removed from the liver and the critical view of safety was obtained after clearing away all fatty material. Endo Clips were placed across the duct and artery and these structures are divided. The remainder of the gallbladder was excised from the liver bed. The gallbladder was placed in a bag and brought out. Examination of the gallbladder shows indeed the cystic duct and artery to have been divided. The remainder of the abdomen was copiously irrigated with a liter of saline. All saline is removed. There is no bleeding or bile leakage from the liver bed or the clips sites. An EndoClose needle was used to close the 10 mm port site with an 0 Vicryl. All ports and instruments are removed. SPonge and needle counts are correct. Pneumoperitoneum is evacuated and the port sites are monitored to make sure there is no bleeding at the time of desufflation. ??Port sites are irrigated and the skin is closed with 4-0 Monocryl in a running subcuticular fashion. Skin glue sterile dressings are applied. The patient tolerated the procedure well without complications, transferred to the recovery room in stable condition. EILEEN DUMAS, DO
--- NOTE | 2023-03-17 22:16 | W.PM.DSUDISC ---
Date of service: 03/18/23 Time of Service: 09:22 Discharge Plan Disposition Patient Disposition: Home Condition: Good Discharge Details Reason For Visit: gallbladder removal Attending Provider: Eileen Yap Primary Care Provider: Timmy Bolton Home Meds and New Rx's Prescriptions: New tramadol 50 mg tablet 50 mg PO Q4H PRNQty: 14 0RF Continued buspirone 10 mg tablet 10 mg PO TID MDD 60 mg PRN (Reason: anxiety) Qty: 90 0RF Rx Instructions: May take up to 20 mg po TID prn anxiety metformin 500 mg tablet 500 mg PO BID Qty: 180 0RF Rx Instructions: Take 1 tablet twice a day norethindrone (contraceptive) [Deblitane] 0.35 mg tablet 0.35 mg PO DAILY Qty: 84 4RF ondansetron 4 mg tablet,disintegrating 4 mg PO Q8H Qty: 30 3RF pantoprazole [Protonix] 40 mg tablet,delayed release (DR/EC) 40 mg PO DAILY Qty: 90 12RF fluoxetine 10 mg capsule 10 mg PO QAM Qty: 30 0RF metformin 500 mg tablet Patient Comments: TAKE ONE TABLET BY MOUTH TWICE A DAY Discharge Instructions Additional Instructions: Care after Gallbladder Surgery -Pain control: ?For the first 72 hours after surgery, take you pain meds continuously and not just when you have pain.?? Alternate Tylenol 1000mg by mouth every 8 hours, and Ibuprofen 600mg every 6 hours.? Make sure you take ibuprofen with food and not on an empty stomach.? ??Use the tramadol for breakthrough pain- pain that is greater than a 7. ?- Use ICE! Ice really helps to keep the swelling down, and swelling causes pain. ??Twenty minutes on, and then off, continuously for the first 72hours.? After the first 72hrs, you can just use the Tylenol, ibuprofen or Celebrex, and ice, ?when you have pain.?? If you are taking narcotic pain medication, follow the instructions on the label and do not drive. Pain medications can make you very constipated. Make sure you are moving your bowels daily. If not, take Miralax, milk of magnesia or magnesium citrate.? - Anesthesia makes you very constipated.? Take a dose of milk of magnesia the morning after surgery. ? Use an ice bag for the first 72 hours. This helps to decrease swelling, which causes pain. It is normal to be more sore/painful and swollen towards the end of the day and first thing in the morning. ? Gallbladder surgery can make you very nauseated; use Zofran for nausea, for the first 24 hours. The nausea generally stops after 24 hours. ? Use milk of magnesia or prune juice to prevent constipation (this is a particular side effect of pain medication and anesthesia). Do not allow yourself to become constipated. ? Avoid fatty or greasy foods; introduce these slowly, with care, after about 1 month. High-fat foods include: ? Foods that are fried, like Romanian fries and potato chips ? High-fat meats, such as rodriguez, bologna, sausage, ground beef, and ribs, pork products ? High-fat dairy products, such as cheese, ice cream, cream, whole milk, and sour cream ? Pizza ? Foods made with lard or butter ? Creamy soups or sauces ? Meat gravies ? Chocolate ? Oils, such as palm and coconut oil ? Skin of chicken or turkey ? Nuts and nut butters ? Avocadoes ? Start out eating very small, bland amounts of food. Do not take pain pills on an empty stomach. - You will notice purple discoloration around the incisions.? This is the ?skin glue?.? This will wear off on its own.? It is OK to shower after 24hrs.? You do not need to cover the incisions. -You should walk frequently, gradually, increasing the distance. You may climb stairs, just go slowly. ? Do not go swimming or sit in a hot tub for two weeks. ? There are no stitches to remove. ? Do not drive your car x72hrs and then only if you have no pain and can move freely. Do not drive if you are taking pain narcotic pain medications. ? You may resume sexual activity whenever pain and soreness subside, usually in 2 weeks. ? Do no lift anything over 5 lbs. for two weeks. ? You may return to work in one week, or when you feel able, provided you do not have to do any heavy lifting or prolonged standing. ? You should return to Dr. Yap?s office for a post-op appointment about two weeks after surgery. A follow-up should have been scheduled for you already.? If there is not, please call the Surgical [facility] at: [phone] to schedule an appointment. My Medications for pain and nausea are: Tylenol/ibuprofen ?and ultram- for severe pain ?and Zofran-nausea When to Call the Office: ? If the incision becomes red or swollen, or there is more than a little drainage from it. ? If you develop a temperature higher than 100.5 F. ? If your eyes turn yellow ? Vomiting and can?t keep fluids down Activity:: see above Remove Dressings/Wound Care:: 24 hours Shower/Bathe:: 24 hours Diet:: low fat Discharge Orders Discharge Orders: Discharge Order (Routine); Ordered 03/17/23 Ordered By: Eileen Yap DS: Diagnosis Discharge Diagnosis (1) Biliary dyskinesia: Status: Acute (2) Bright red rectal bleeding: Status: Acute (3) Chronic GERD: Status: Acute (4) History of anal fissures: Status: Acute (5) BMI 40.0-44.9, adult: Status: Acute (6) Oral contraceptive use: Status: Acute (7) Pelvic pain: Status: Acute (8) Rhinosinusitis: Status: Acute (9) Smoker:
[2023-03-18] VITALS (14 sets, daily range): BP systolic 110–144; BP diastolic 44–85; PULSE 62–93; RESP 14–26; TEMP 35.7–36.7; O2SAT 97–100; BMI 44.1
[2023-03-18] MEDS: Indocyanine green 25 MG VIAL 5 MG IVP (07:00)
[2023-03-18] MEDS: Gabapentin 300 MG CAP 600 MG PO (07:15)
[2023-03-18] MEDS: Acetaminophen 500 MG TAB 1000 MG PO (07:19)
[2023-03-18] MEDS: Lactated Ringers 1,000 ML 80 ML IV (07:20)
[2023-03-18] MEDS: Water,Injection,Sterile 10 ML VIAL IJ (07:20)
--- NOTE | 2023-03-18 07:24 | ANES.PREOP_ITS ---
General Info Date of Service Date Performed: 03/18/23 Height: 5 ft 9 in Weight: 135.8 kg Body Mass Index (BMI): 44.1 Surgical Procedure: Operation Date: 03/18/23 07:40 Proposed Procedure Side Surgeon p Cholecystectomy Laparoscopic possible Open Eileen Yap, Meds Allergies and Home Medications Allergies Allergy/AdvReac Type Severity Reaction Status Date / Time No Known Allergies Allergy Verified 03/18/23 07:04 Home Medication Medication Instructions Recorded fluoxetine 10 mg capsule 10 mg PO QAM #30 caps 11/25/22 pantoprazole 40 mg tablet,delayed 40 mg PO DAILY #90 tabs 01/09/23 release (Protonix) norethindrone (contraceptive) 0.35 0.35 mg PO DAILY #84 tabs 01/13/23 mg tablet (Deblitane) buspirone 10 mg tablet 10 mg PO TID PRN anxiety #90 tabs 01/15/23 metformin 500 mg tablet 500 mg PO BID #180 tabs 01/15/23 ondansetron 4 mg disintegrating 4 mg PO Q8H #30 tabs 02/24/23 tablet metformin 500 mg tablet mg 03/18/23 Current Visit Medications: Current Medications Generic Name Dose Route Start Last Admin Trade Name Freq PRN Reason Stop Dose Admin Acetaminophen 1,000 mg 03/18/23 06:00 03/18/23 07:19 Acetaminophen 500 Mg Tab PO 03/18/23 23:59 1,000 mg PREOP SHARIF Administration Gabapentin 600 mg 03/18/23 06:00 03/18/23 07:15 Gabapentin 300 Mg Cap PO 03/18/23 23:59 600 mg PREOP SHARIF Administration Ringer's Solution 1,000 mls @ 80 mls/hr 03/18/23 06:00 03/18/23 07:20 IV 03/18/23 23:59 80 mls/hr INFUSION SHARIF Administration Cefazolin Sodium/Dextrose 2 gm in 50 mls @ 100 mls/hr 03/18/23 06:00 Ancef Duplex IVPB 03/18/23 23:59 PREOP SHARIF Ondansetron HCl 4 mg/ Sodium 52 mls @ 200 mls/hr 03/17/23 22:11 Chloride IVPB 04/16/23 22:10 Q6H PRN PRN IV Miscellaneous Supplies 1 each 03/18/23 06:00 Iv Access IV 03/18/23 23:59 DIRECTED SHARIF Indocyanine Green 5 mg 03/18/23 06:00 03/18/23 07:00 Indocyanine Green 25 Mg Vial IVP 03/18/23 16:00 5 mg DIRECTED SHARIF Administration Morphine Sulfate 2 mg 03/17/23 22:11 Morphine 4 Mg/Ml Syr IVP 04/16/23 22:10 Q1H PRN PRN Sodium Chloride 0 ml 03/18/23 06:00 Normal Saline Flush 10 Ml Syr IV 03/18/23 23:59 PRN PRN Sodium Chloride 0 ml 03/18/23 06:00 Normal Saline 10 Ml Vial IJ 03/18/23 23:59 DIRECTED PRN Sterile Water 0 ml 03/18/23 06:00 03/18/23 07:20 Water,Injection,Sterile 10 Ml Vial IJ 03/18/23 23:59 10 ml DIRECTED PRN Administration Tramadol HCl 50 mg 03/17/23 22:11 Tramadol 50 Mg Tab PO 04/16/23 22:10 Q6H PRN PRN Pain PFSH Active Problems Active Problems: Problem Status Onset Code Bright red rectal bleeding K62.5 Chronic GERD K21.9 History of anal fissures Z87.19 Biliary dyskinesia K82.8 BMI 40.0-44.9, adult Z68.41 Postprandial RUQ pain R10.11 Pelvic pain R10.2 Oral contraceptive use Z30.41 Rhinosinusitis J31.0, J32.9 Generalized anxiety disorder F41.1 Medical History Medical History Bright red rectal bleeding Depressed History of hemorrhoids Humerus lesion, right Increased body mass index (BMI) (10/23/17) Left foot pain Rash Smoker (09/23/17) Tendonitis of long head of biceps brachii of right shoulder Tonsillitis URI (upper respiratory infection) Surgical History Surgical History No significant past surgical history Tobacco Smoking/Tobacco Use Status: Current every day Tobacco Type: e-cigarettes Second hand exposure: Yes Counseling given: counseling >3 minutes Alcohol Alcohol Intake: current Alcohol intake frequency: a few times a week Alcohol type: beer Substance Use Substance use: Rarely Substance use type: marijuana Prental History History 1 Para 0 Hx # Term Pregnancies Multiple births Hx # Pregnancies Ectopic pregnancies AB induced 1 Hx Number of Living Children AB spontaneous Past Pregnancies Del. Date GA/Weeks # Preg Succ Route Wgt Sex Labor Lgth Anesth esia Location Prov [facility] 07/29/21 4 Delivery Date: 07/29/21 Last Updated by: Tamiko Beach MD Medical [facility] at Vital Signs and Lab Results Vital Signs Most Recent Vital Signs in EMR: Most Recent Vital Signs Temp Pulse Resp BP Pulse Ox 36.2 C L 93 H 18 144/85 H 97 03/18/23 06:30 03/18/23 06:30 03/18/23 06:30 03/18/23 06:30 03/18/23 06:30 Lab Results Blood Type / Crossmatch: Patient ABO/Rh O Positive 02/24/23 Antibody Screen NEGATIVE 02/24/23 Complete Blood Count: White Blood Count 8.39 10^3/uL (4.4-10.8) 02/24/23 08:35 Red Blood Count 4.83 10^6/uL (3.93-5.22) 02/24/23 08:35 Hemoglobin 13.4 g/dL (11.2-15.7) 02/24/23 08:35 Hematocrit 42.4 % (36.0-46.0) 02/24/23 08:35 Platelet Count 312 10^3/uL (130-400) 02/24/23 08:35 Complete Metabolic Panel: Sodium 142 mmol/L (136-145) 02/24/23 08:35 Potassium 4.0 mmol/L (3.5-5.1) 02/24/23 08:35 Chloride 106 mmol/L (98-107) 02/24/23 08:35 Carbon Dioxide 26.1 mmol/L (21.0-32.0) 02/24/23 08:35 BUN 14 mg/dL (7-18) 02/24/23 08:35 Creatinine 1.1 mg/dL (0.55-1.02) H 02/24/23 08:35 Est GFR (CKD-EPI 2020) 72.41 (mL/min/1.73m2) 02/24/23 08:35 Magnesium 1.9 mg/dL (1.8-2.4) 02/24/23 08:35 Calcium 9.0 mg/dL (8.5-10.1) 02/24/23 08:35 Albumin 3.7 g/dL (3.4-5.0) 02/24/23 08:35 Glucose 109 mg/dL (74-106) H 02/24/23 08:35 Liver Function Panel: Alanine Aminotransferase (ALT/SGPT) 62 U/L (14-59) H 02/24/23 0 8:35 Aspartate Amino Transf (AST/SGOT) 38 U/L (15-37) H 02/24/23 08: 35 Coagulation Panel: INR International Normalized Ratio 1.0 (0.9-1.1) 02/24/23 08:3 5 Prothrombin Time 9.9 sec (9.3-11.0) 02/24/23 08:35 Activated Partial Thromboplast Time 26.4 sec (21.5-31.9) 08:35 Cardiac Panel: No Data to Display Arterial Blood Gas: No Data to Display Venous Blood Gas: No Data to Display Pancreas Panel: Lipase 50 U/L (16-77) 02/24/23 08:35 Thyroid Panel: No Data to Display Infectious Disease: No Data to Display Blood Cultures: No Data to Display Toxicology Panel: No Data to Display Panel: No Data to Display Anesthesia Assessment and Plan Anesthesia History Personal History: No History of Anesthesia Complications Family History: No Family History of Anesthesia Complications Exercise Tolerance Exercise Tolerance: Metabolic Equivalents>4 Pertinent Negatives Pertinent Negatives: No Major Cardiovascular Symptoms or Complaints, No Major Pulmonary Symptoms or Complaints and No History of CVA/TIA Cardiac & Pulmonary Exam Cardiac Exam: Normal S1/S2 Heart Sounds Pulmonary Exam: Clear Bilateral Breath Sounds Implantable Cardiac Device Does patient have a Pacemaker or an ICD?: No Airway Exam Known Difficult Airway: No Mallampati Class: 4 Mouth Opening: Normal (> 3cm) Thyromental Distance: Greater than 3 cm Neck Range of Motion: Full ROM Neck Circumference: Thick Teeth Condition: Normal Dentition ASA Classification ASA Score: ASA 3 Emergency Case?: No NPO Status NPO Status: NPO Clears >2 hours, Solids >8 hours Status Status: Negative HCG Anesthesia Plan Resuscitation Status: Full Code Anesthesia Technique: General Anesthesia Airway Planned: Endotracheal Tube Monitors Used: Standard Monitors
[2023-03-18] MEDS: ceFAZolin 2 GM/50 ML BAG IVPB (07:53)
--- NOTE | 2023-03-18 08:45 | GB_PTH ---
PATIENT: Yadira Adams LOC: [facility] U#:[id number] AGE/SX: 23/F ROOM: RE03/18/[address]: Eileen Yap : 2000 BED: DIS: 03/18/2023 SPEC #: [id number] RECD: 03/18/23 12:28 STATUS: ULICES REBhanu #: [id number] ERA: 03/18/23 08:[address]: Eileen Yap DEPT: Surgical Specimen RECD BY: Sheila Bond ENTERED: 03/18/23 12:28 SP TYPE: GB OTHR DR: Timmy Toro DNP Tissues: 1 - GALLBLADDER Procedures: GROSS AND MICRO LEVEL 3 Comments: [id number]
[2023-03-18] MEDS: Droperidol 5 MG/2 ML VIAL 0.625 MG IVP ×2 (09:38→09:58)
[2023-03-18] MEDS: Ondansetron 4 MG/2 ML VIAL IVP (10:12)
[2023-03-18] MEDS: HYDROmorphone 2 MG/ML SYR IVP (10:32)
[2023-03-18] MEDS: Normal Saline 10 ML VIAL IJ (10:32)
--- NOTE | 2023-03-18 11:18 | W.ANESPOSTOP ---
Postoperative Evaluation Date, Time and Location Date Performed: 03/18/23 Time Performed: 11:12 Patient Location: Day Surgery Unit Vital Signs Most Recent Imported Vital Signs: Most Recent Vital Signs Temp Pulse Resp BP Pulse Ox 36.6 C 62 19 130/62 99 03/18/23 10:46 03/18/23 10:46 03/18/23 10:46 03/18/23 10:46 03/18/23 10:46 Pain Score Most Recent Pain Score: Most Recent Pain Score Pain Level 4 03/18/23 10:46 Assessment Mental Status: Awake (Alert & Oriented to Patient Baseline) Airway and Respiratory Function: Patent airway with normal (patient baseline) respiratory exam Cardiovascular Function: Hemodynamically Stable Hydration Status: Adequately Hydrated Nausea & Vomiting: No Nausea or Vomiting Pain: Pain is tolerable per patient Peripheral Nerve Block: Patient did not receive a nerve block
== END 2023-03-18 12:35 | disposition home or self-care (01) ==
PROVIDERS: PCP Nurse Practitioner Family; Visit Provider Surgery
PROC: 0FT44ZZ Resection of Gallbladder, Percutaneous Endoscopic Approach (ICD-10-PCS; CPT 47562; principal; 2023-03-18 07:30)
DX: K81.1 Chronic cholecystitis (principal); K21.9 Gastro-esophageal reflux disease without esophagitis; F41.1 Generalized anxiety disorder; K76.0 Fatty (change of) liver, not elsewhere classified
CPT/HCPCS: 47562; 81025; 88304; J0690; J1100; J1170; J1790; J1885; J2250; J2405; J2704

== ENCOUNTER 2023-05-13 07:51 | Emergency (ER) | payer MEDICAID, SELFPAY ==
[2023-05-13 07:54] VITALS: BP 119/76; PULSE 75; RESP 22; O2SAT 99
[2023-05-13 08:00] VITALS: RESP 22
--- NOTE | 2023-05-13 08:30 | RT.EKG_ITS ---
APPROVED REPORT Exam: Resting ECG Reason for Exam: short of breath Patient Location: E HR:72 bpm ECG Measurements Heart Rate 72 AXIS HI 174 P 0 QRSd 93 QRS 6 QT 397 T 5 QTc 436 Conclusion Sinus rhythm... V-rate 60- [address] elev, probable normal early repol pattern...ST elevation, age<55; no ST segment or T wave abnormal ities to suggest occlusive OR
--- NOTE | 2023-05-13 08:30 | DI.RAD_ITS ---
Exam(s) XR CHEST 2V PA LATERAL EXAM: XR CHEST 2V PA LATERAL CLINICAL HISTORY: short of breath. TECHNIQUE: 2D digital imaging was performed. COMPARISON: No exams were available for comparison FINDINGS: 2 views: Heart size is normal. The mediastinum is not widened. Lungs are clear. No infiltrates nor pleural effusions. IMPRESSION: No acute pulmonary findings. DATA REPOSITORY: RADIATION DOSE DELIVERED:
[2023-05-13 08:55] LABS: Abs Immature Grans 0.02 10^3/uL (0.0-0.06); Absolute Basophil Count 0.02 10^3/uL (0.0-0.2); Absolute Eosinophil Count 0.12 10^3/uL (0.0-0.7); Absolute Lymphocyte Count 2.09 10^3/uL (1.2-3.4); Absolute Monocyte Count 0.44 10^3/uL (0.1-0.8); Absolute Neutrophil Count 4.84 10^3/uL (1.2-6.7); Basophils % 0.3; Eosinophils % 1.6; HCT 40.5 % (36.0-46.0); Immature Grans % 0.3; Lymphocytes % 27.8; MCH 28.2 pg (27.0-33.0); MCHC 32.1 % (32.0-36.0); MCV 88 fL (80-95); MPV 8.8 fL (8.0-11.0); Monocytes % 5.8; Neutrophils % 64.2; Platelet Count 292 10^3/uL (130-400); RBC 4.61 10^6/uL (3.93-5.22); RDW 13.8 % (11.7-14.6); RDW-SD 44.2 fL; WBC 7.53 10^3/uL (4.4-10.8)
--- NOTE | 2023-05-13 09:10 | ED.GENADUL_ITS ---
Discharge Plan Disposition Patient Disposition: Home Discharge Details Chief Complaint: SOB Clinical Impression: Cough Primary Care Provider: Timmy Bolton ED Provider: Elena Hampton Home Meds and New Rx's Prescriptions: No Action buspirone 10 mg tablet 10 mg PO TID MDD 60 mg PRN (Reason: anxiety) Qty: 90 0RF Rx Instructions: May take up to 20 mg po TID prn anxiety metformin 500 mg tablet 500 mg PO BID Qty: 180 0RF Patient Comments: not taking Rx Instructions: Take 1 tablet twice a day pantoprazole [Protonix] 40 mg tablet,delayed release (DR/EC) 40 mg PO DAILY Qty: 90 12RF fluoxetine 10 mg capsule 10 mg PO QAM Qty: 30 0RF levonorgestrel-ethinyl estrad [Vienva] 0.1-20 mg-mcg tablet 1 tab PO DAILY Qty: 84 4RF Discharge Instructions Instructions: Acute Cough (ED) Additional Instructions: Call your primary care doctor today to schedule an appointment to follow up on your visit today. Return to the emergency department for new or worsening symptoms, including shortness of breath or chest pain. Stand Alone Forms: Work Release Referrals: Timmy Bolton, TECHNOLOGY INSTRUCTOR [Primary Care Provider] - Medical Decision Making 23yo F with JAIDA presenting after exposure to Terro ant killer; at time of exposure ~ 30 minutes prior to presentation had frequent cough, chest tightness, and lightheadedness. Other people in room did not experience these symptoms . General fogginess persists, otherwise symptoms resolved prior to arrival. Vital signs and physical exam reassuring. Suspect likely reaction to chemical +/- component of anxiety; low suspicion for acute cardiopulmonary process; will further evaluate with labs, EKG, CXR. EKG NSR with appropriate intervals, no ST segment or T wave abnormalities to suggest occlusive OK. Labs as below, CBC & CMP reassuring with no leukocytosis or anemia, normal electrolytes. Troponin negative; Low risk HEART score; would not further pursue acute coronary syndrome with echocardiogram or delta troponins. Dimer negative, would not further pursue workup for pulmonary embolism. CXR independently reviewed, no pneumonia or pneumothorax on my view, agree with radiology read below. Discussed with poison control; Terro unlikely to cause respiratory symptoms, only treatment would be removal from exposure. On reassessment patient remains well appearing with reassuring vital signs, denies any symptoms currently. Discharged home; discharge instructions including return precautions were reviewed with patient who verbalized understanding. All questions were answered and they are in full agreement with the plan. Imaging Data Radiologic Study: Imaging: X-Ray Radiologist's impression: IMPRESSION: No acute pulmonary findings. Lab Data Lab results reviewed: Yes I reviewed the patient's lab results. Labs: Laboratory Tests Range/Units 05/13/23 05/13/23 05/13/23 08:45 08:45 08:45 WBC (4.4-10.8) 10^3/uL 7.53 RBC (3.93-5.22) 10^6/uL 4.61 Hgb (11.2-15.7) g/dL 13.0 Hct (36.0-46.0) % 40.5 MCV (80-95) fL 88 MCH (27.0-33.0) pg 28.2 MCHC (32.0-36.0) % 32.1 RDW (11.7-14.6) % 13.8 Plt Count (130-400) 10^3/uL 292 MPV (8.0-11.0) fL 8.8 Immature Gran % 0.3 Neutrophils % 64.2 Lymphocytes % 27.8 Monocytes % 5.8 Eosinophils % 1.6 Basophils % 0.3 Nucleated RBC % (0.0-0.3) % 0.0 Absolute Neutrophils (1.2-6.7) 10^3/uL 4.84 Absolute Lymphocytes (1.2-3.4) 10^3/uL 2.09 Absolute Monocytes (0.1-0.8) 10^3/uL 0.44 Absolute Eosinophils (0.0-0.7) 10^3/uL 0.12 Absolute Basophils (0.0-0.2) 10^3/uL 0.02 D-Dimer (<500) ng/mlFEU 378 Sodium (136-145) mmol/L 139 Potassium (3.5-5.1) mmol/L 4.6 Chloride (98-107) mmol/L 105 Carbon Dioxide (21.0-32.0) mmol/L 27.8 Anion Gap (3-11) mmol/L 6.2 BUN (7-18) mg/dL 15 Creatinine (0.55-1.02) mg/dL 1.0 Est GFR (CKD-EPI 2020) (mL/min/1.73m2) 81.18 Glucose (74-106) mg/dL 102 Calcium (8.5-10.1) mg/dL 9.1 Total Bilirubin (0.2-1.0) mg/dL 0.3 AST (15-37) U/L 20 ALT (14-59) U/L 40 Alkaline Phosphatase (46-116) U/L 57 Troponin I (<or=60) ng/L < 50 Total Protein (6.4-8.2) g/dL 7.5 Albumin (3.4-5.0) g/dL 3.5 HPI General Mode of arrival: ambulatory . Date/Time Provider Initiated Documentation: 05/13/23 08:07 . Limitations to Documentation: no limitations . Information obtained by: patient . HPI Narrative: 23yo F with JAIDA presenting after exposure to ant killer. Was at work, the area underneath a resident's bed had recently been treated wtih Terro ant killer. 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 Ragland some tightness in her chest, also felt lightheaded and foggy. Cough and chest tightness have since resolved; fogginess persists. Resident and other staff in room did not have symptoms. She has never experienced similar symptoms in the past. She felt normal this morning before this event. She is otherwise in her usual state of health with no fevers, chills, rash, nausea, vomiting, abdominal pain, numbness, tingling, weakness, syncope, LE edema, or other concerns. Related Data Home Medications Medication Instructions Recorded Confirmed fluoxetine 10 mg capsule 10 mg PO QAM #30 caps 11/25/22 05/13/23 pantoprazole 40 mg tablet,delayed 40 mg PO DAILY #90 tabs 01/09/23 05/13/23 release (Protonix) buspirone 10 mg tablet 10 mg PO TID PRN anxiety #90 tabs 01/15/23 05/13/23 metformin 500 mg tablet 500 mg PO BID #180 tabs 01/15/23 04/22/23 levonorgestrel-ethinyl estradiol 1 tab PO DAILY #84 tabs 04/18/23 05/13/23 0.1 mg-20 mcg tablet (Vienva) Previous Rx's Medication Instructions Recorded fluoxetine 10 mg capsule 10 mg PO QAM #30 caps 11/25/22 pantoprazole 40 mg tablet,delayed 40 mg PO DAILY #90 tabs 01/09/23 release (Protonix) buspirone 10 mg tablet 10 mg PO TID PRN anxiety #90 tabs 01/15/23 metformin 500 mg tablet 500 mg PO BID #180 tabs 01/15/23 levonorgestrel-ethinyl estradiol 1 tab PO DAILY #84 tabs 04/18/23 0.1 mg-20 mcg tablet (Vienva) Allergies Allergy/AdvReac Type Severity Reaction Status Date / Time No Known Allergies Allergy Verified 05/13/23 07:58 General Stated Complaint: SOB PILLO: 3 Review of Systems Narrative: see HPI PFSH All Active Problems (Updated 05/13/23 @ 10:07 by Elena Hampton MD) Cough (Acute) NAFLD (nonalcoholic fatty liver disease) (Acute) FIGUEROA Chronic GERD (Acute) History of anal fissures (Acute) Biliary dyskinesia (Acute) BMI 40.0-44.9, adult (Acute) Postprandial RUQ pain (Acute) Pelvic pain (Acute) Oral contraceptive use (Acute) Rhinosinusitis (Acute) Generalized anxiety disorder (Acute) Medical History Bright red rectal bleeding Depressed History of hemorrhoids Humerus lesion, right Increased body mass index (BMI) (10/23/17) Left foot pain Rash Smoker (09/23/17) Tendonitis of long head of biceps brachii of right shoulder Tonsillitis URI (upper respiratory infection) Surgical History History of laparoscopic cholecystectomy (~03/18/23) No significant past surgical history Family History Mother Asthma Father Alcohol abuse Essential hypertension Diabetes Paternal Grandfather Parkinson disease Paternal Grandmother Essential hypertension Asthma Social History Smoking/Tobacco Use Status: Current every day Tobacco Type: e-cigarettes Tobacco: How many years used: 4 Quit status: considering quitting Second Hand Exposure: Yes Counseling given: counseling >3 minutes Smoking risk assessment performed?: Yes Alcohol Intake: current Alcohol Intake frequency: a few times a week Alcohol type: beer Drug use: Rarely Substance use type: marijuana Caregiver/Support person: No Household members: family Housing: house Pets and animals: Yes Pets and animals: dog(s), horse(s), turtle(s) and farm animals Sexually active: No Do you think of yourself as: straight/heterosexual Current gender identity: female What is your relationship status?: never How often do you talk on the phone with friends or family?: three or more times per week How often do you get together with friends or relatives?: three or more times per week How often do you attend baptist or judaism services?: 4 or more times per year Do you belong to any clubs or organized social groups?: no Panel score (0-1 are the most socially isolated patients): 2 What type of physical activity do you participate in: walking and other 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 Date GA/Weeks # Preg Succ Route Wgt Sex Labor Lgth Anesth esia Location [facility] 07/29/21 4 Delivery Date: 07/29/21 Last Updated by: Tamiko Beach MD Medical [facility] at Exam Narrative Exam Narrative: General: Alert, well appearing, well nourished, in no acute distress. Eyes: Normal conjuctiva. Head: Normocephalic, atraumatic Neck: Trachea midline, Neck supple. ENT: MMM. No oropharygeal lesions or exudate. Cardiac: RRR, no murmurs appreciated Resp: No respiratory distress. CTAB. Abd: Soft, non-distended, nontender : No suprapubic tenderness. No CVA tenderness. Extremities: No deformities. No peripheral edema. Neurologic: GCS 15. Moves all extremities freely against gravity Course Vital Signs Vital signs: Vital Signs Pulse 75 05/13/23 07:54 Respiratory Rate 22 05/13/23 07:54 Blood Pressure 119/76 05/13/23 07:54 Pulse Oximetry 99 05/13/23 07:54 Pulse 75 05/13/23 07:54 Respiratory Rate 22 05/13/23 08:00 Respiratory Effort Normal 05/13/23 08:00 Respiratory Depth Normal 05/13/23 08:00 Respiratory Pattern Normal 05/13/23 08:00 Blood Pressure 119/76 05/13/23 07:54 Blood Pressure Position Sitting 05/13/23 07:54 Pulse Oximetry 99 05/13/23 07:54 Oxygen Delivery Method Room Air 05/13/23 07:54 Oxygen Flow Rate 0 05/13/23 07:54 Pain Level 0 05/13/23 07:54 Lab/Test Results Lab/Test Results: Laboratory Tests Range/Units 05/13/23 08:45 WBC (4.4-10.8) 10^3/uL 7.53 RBC (3.93-5.22) 10^6/uL 4.61 Hgb (11.2-15.7) g/dL 13.0 Hct (36.0-46.0) % 40.5 MCV (80-95) fL 88 MCH (27.0-33.0) pg 28.2 MCHC (32.0-36.0) % 32.1 RDW (11.7-14.6) % 13.8 Plt Count (130-400) 10^3/uL 292 MPV (8.0-11.0) fL 8.8 Immature Gran % 0.3 Neutrophils % 64.2 Lymphocytes % 27.8 Monocytes % 5.8 Eosinophils % 1.6 Basophils % 0.3 Nucleated RBC % (0.0-0.3) % 0.0 Absolute Neutrophils (1.2-6.7) 10^3/uL 4.84 Absolute Lymphocytes (1.2-3.4) 10^3/uL 2.09 Absolute Monocytes (0.1-0.8) 10^3/uL 0.44 Absolute Eosinophils (0.0-0.7) 10^3/uL 0.12 Absolute Basophils (0.0-0.2) 10^3/uL 0.02
[2023-05-13 09:19] LABS: ALT 40 U/L (14-59); AST 20 U/L (15-37); Albumin 3.5 g/dL (3.4-5.0); Alkaline Phosphatase 57 U/L (46-116); Anion Gap 6.2 mmol/L (3-11); BUN 15 mg/dL (7-18); Bilirubin, Total 0.3 mg/dL (0.2-1.0); CO2 27.8 mmol/L (21.0-32.0); Calcium 9.1 mg/dL (8.5-10.1); Chloride 105 mmol/L (98-107); Estimated GFR 81.18 (mL/min/1.73m2); Glucose 102 mg/dL (74-106); Potassium 4.6 mmol/L (3.5-5.1); Sodium 139 mmol/L (136-145); Total Protein 7.5 g/dL (6.4-8.2)
[2023-05-13 09:22] LABS: Troponin I < 50 ng/L (<or=60)
[2023-05-13 09:51] LABS: D-Dimer 378 ng/mlFEU (<500)
== END 2023-05-13 10:20 | disposition home or self-care (01) ==
PROVIDERS: Emergency Provider Student in an Organized Health Care Education/Training Program; PCP Nurse Practitioner Family
DX: R05.9 Cough, unspecified (principal); R06.02 Shortness of breath; R42 Dizziness and giddiness
CPT/HCPCS: 36415; 80053; 93005; 99284; 71046; 84484; 85025; 85379; 93010

== ENCOUNTER → 2023-05-28 01:36 | Outpatient (CLI) | payer MEDICAID, SELFPAY ==
--- NOTE | 2023-05-28 08:45 | DI.RAD_ITS ---
Exam(s) XR LUMBAR SPINE COMPLETE EXAM: XR LUMBAR SPINE COMPLETE CLINICAL HISTORY: pain is worst in the morning,LOW BACK PAIN, M54.50. TECHNIQUE: 2D digital imaging was performed. Five views. COMPARISON: None FINDINGS: BONES: No fracture or destructive lesion. Vertebral body heights are maintained. No facet hypertroph y identified. DISKS: Mild narrowing L5-S1 disc space. Remaining intervertebral disc spaces are maintained. ALIGNMENT: Lumbar spinal alignment is within normal limits. SOFT TISSUE: Surgical clips right upper quadrant. Bowel gas pattern unremarkable. IMPRESSION: Mild narrowing of the L5-S1 disc space. DATA REPOSITORY: RADIATION DOSE DELIVERED:
== END ==
PROVIDERS: PCP Nurse Practitioner Family; Visit Provider Nurse Practitioner Family
DX: M51.36 Other intervertebral disc degeneration, lumbar region (principal)
CPT/HCPCS: 72110

== ENCOUNTER 2023-07-29 07:22 | Emergency (ER) | payer MEDICAID, SELFPAY ==
[2023-07-29 07:25] VITALS: BP 138/77; PULSE 79; RESP 18; TEMP 36.6
--- NOTE | 2023-07-29 08:26 | ED.GENADUL_ITS ---
Discharge Plan Disposition Patient Disposition: Home Condition: Stable Discharge Details Clinical Impression: Pain in right lumbar region of back, Paresthesia of right lower extremity Primary Care Provider: Timmy Bolton ED Provider: Abran Us Home Meds and New Rx's Prescriptions: Continued fluoxetine 10 mg capsule 10 mg PO QAM Qty: 90 4RF bupropion HCl 100 mg tablet 100 mg PO BID Qty: 60 0RF levonorgestrel-ethinyl estrad [Vienva] 0.1-20 mg-mcg tablet 1 tab PO DAILY Qty: 84 4RF Discontinued pantoprazole [Protonix] 40 mg tablet,delayed release (DR/EC) 40 mg PO DAILY Qty: 90 12RF cyclobenzaprine 10 mg tablet 10 mg PO TID PRN (Reason: muscle spasm) Qty: 30 0RF fluconazole 150 mg tablet 150 mg PO Q3D Qty: 2 2RF No Action buspirone 10 mg tablet 10 mg PO TID MDD 60 mg PRN (Reason: anxiety) Qty: 90 0RF Rx Instructions: May take up to 20 mg po TID prn anxiety Discharge Instructions Instructions: Lumbar Radiculopathy (ED) Additional Instructions: Please take ibuprofen over the counter. Take 600mg by mouth every 6 hours as needed for pain. Please take acetaminophen (tylenol) - 650mg every 6 hours by mouth as needed for pain. Use [id number] lidocaine patches. Dose according to label. Please follow-up with your primary care physician. Please have MRI as scheduled by your primary care doctor. Please contact your primary care physician to arrange follow-up. Return to the ER immediately for any worsening or new concerning symptoms. Stand Alone Forms: Work Release Referrals: Tmimy Bolton, [employer] [Primary Care Provider] - Discharge Data Discharge Date/Time-TO BE ENTERED AT DEPARTURE: 07/29/23 10:00 Medical Decision Making 830-- 23-year-old female here with low back pain, has had pain in her left low back for the past few months, but this resolved this morning with no pain in her right low back and associated paresthesia right lateral hip. Patient has diminished sensation to light touch right compared to left right lateral hip L2- L3. Motor intact. No saddle anesthesia. Plan to treat pain with Toradol IM, acetaminophen, lidocaine patch, and Valium. Plan to reassess. 945 --patient reassessed and notes feeling improved. Plan for discharge with outpatient follow-up PCP and MRI as ordered by PCP. Usual customary discharge instructions reviewed with the patient. HPI General Date/Time Provider Initiated Documentation: 07/29/23 07:48 . Limitations to Documentation: no limitations . Information obtained by: patient . HPI Narrative: 23-year-old female presents with chief complaint of back pain. Patient notes she has had approximately 3 months of left low back pain. She has been seen by her primary care physician and physical therapy for this. She notes she is scheduled for MRI of her spine on 1129. Today she woke up with complete re solution of pain in her left low back but now pain in her right low back with numbness right buttock and lateral hip. She has not had pain in her right back or experienced associated numbness before. No bowel or bladder dysfunction. No focal weakness. Patient denies recent injury. No traumatic events. Related Data Home Medications Medication Instructions Recorded Confirmed buspirone 10 mg tablet 10 mg PO TID PRN anxiety #90 tabs 01/15/23 07/29/23 levonorgestrel-ethinyl estradiol 1 tab PO DAILY #84 tabs 04/18/23 07/29/23 0.1 mg-20 mcg tablet (Vienva) bupropion HCl 100 mg tablet 100 mg PO BID #60 tabs 05/21/23 07/29/23 fluoxetine 10 mg capsule 10 mg PO QAM #90 caps 05/21/23 07/29/23 Previous Rx's Medication Instructions Recorded buspirone 10 mg tablet 10 mg PO TID PRN anxiety #90 tabs 01/15/23 levonorgestrel-ethinyl estradiol 1 tab PO DAILY #84 tabs 04/18/23 0.1 mg-20 mcg tablet (Vienva) bupropion HCl 100 mg tablet 100 mg PO BID #60 tabs 05/21/23 fluoxetine 10 mg capsule 10 mg PO QAM #90 caps 05/21/23 Allergies Allergy/AdvReac Type Severity Reaction Status Date / Time No Known Allergies Allergy Verified 07/29/23 07:29 General Stated Complaint: Nk/Back Pain PILLO: 3 Review of Systems All systems reviewed & are unremarkable except as noted in HPI and below Constitutional Constitutional: Denies fever(s) PFSH All Active Problems (Updated 07/29/23 @ 09:32 by Abran Us MD) Paresthesia of right lower extremity (Acute) Pain in right lumbar region of back (Acute) Lower back pain (Acute) NAFLD (nonalcoholic fatty liver disease) (Acute) FIGUEROA Chronic GERD (Acute) History of anal fissures (Acute) Biliary dyskinesia (Acute) BMI 40.0-44.9, adult (Acute) Generalized anxiety disorder (Acute) Oral contraceptive use (Acute) Pelvic pain (Acute) Medical History (Updated 07/29/23 @ 09:32 by Abran Us MD) Cough Postprandial RUQ pain Rhinosinusitis URI (upper respiratory infection) History of hemorrhoids Bright red rectal bleeding Depressed Rash Humerus lesion, right Tendonitis of long head of biceps brachii of right shoulder Tonsillitis Left foot pain Smoker (09/23/17) Increased body mass index (BMI) (10/23/17) Surgical History History of laparoscopic cholecystectomy (~03/18/23) No significant past surgical history Family History Mother Asthma Father Alcohol abuse Essential hypertension Diabetes Paternal Grandfather Parkinson disease Paternal Grandmother Essential hypertension Asthma Social History Smoking/Tobacco Use Status: Current every day Tobacco Type: e-cigarettes Tobacco: How many years used: 4 Quit status: considering quitting Second Hand Exposure: Yes Counseling given: counseling >3 minutes Smoking risk assessment performed?: Yes Alcohol Intake: current Alcohol Intake frequency: a few times a week Alcohol type: beer Drug use: Rarely Substance use type: marijuana Caregiver/Support person: No Household members: family Housing: house Pets and animals: Yes Pets and animals: dog(s), horse(s), turtle(s) and farm animals Sexually active: No Do you think of yourself as: straight/heterosexual Current gender identity: female What is your relationship status?: never How often do you talk on the phone with friends or family?: three or more times per week How often do you get together with friends or relatives?: three or more times per week How often do you attend worship or advent services?: 4 or more times per year Do you belong to any clubs or organized social groups?: no Panel score (0-1 are the most socially isolated patients): 2 What type of physical activity do you participate in: walking and other 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 Date GA/Weeks # Preg Succ Route Wgt Sex Labor Lgth Anesth esia Location Prov Complic 07/29/21 4 Delivery Date: 07/29/21 Last Updated by: Tamiko Beach MD [facility] at [facility] Exam Const General: cooperative and no acute distress HENMT Mouth: moist mucous membranes Eyes Conjunctivae: normal conjunctivae Sclera: normal sclerae Neck Neck: trachea midline and supple Resp Auscultation: clear to auscultation bilaterally, no rales, no rhonchi and no wheezes Cardio Rate: regular rate and not tachycardic Rhythm: regular rhythm Back/Spine/Pelvis Thoracic/Lumbar Spine: No mass, paraspinal tenderness (rt), No thoracic spinal tenderness, lumbar spinal tenderness and straight leg raise positive (rt) Sacroiliac joints: on the right tender to palpation Skin General skin exam: no rashes or lesions noted Neuro General: patient alert, patient awake and tone normal Cognition: normal cognition Speech: speech normal Motor: strength 5/5 throughout Sensory Exam: lower extremity (Diminished sensation to light touch right lateral hip) DTR's: Rt Patellar: 1+ and Lt Patellar: 1+ Other: No saddle anesthesia Extrem General: no edema Psych Appearance: grossly normal Mental Status: mental status grossly normal Course Vital Signs Vital signs: Vital Signs Temperature 36.6 C 07/29/23 07:25 Pulse 79 07/29/23 07:25 Respiratory Rate 18 07/29/23 07:25 Blood Pressure 138/77 07/29/23 07:25 Temperature 36.6 C 07/29/23 07:25 Temperature Source Oral 07/29/23 07:25 Pulse 79 07/29/23 07:25 Respiratory Rate 18 07/29/23 07:25 Respiratory Effort Normal 07/29/23 07:38 Blood Pressure 138/77 07/29/23 07:25 Blood Pressure Position Sitting 07/29/23 07:25 Oxygen Delivery Method Room Air 07/29/23 07:25 Oxygen Flow Rate 0 07/29/23 07:25 Lab/Test Results Lab/Test Results: POC- Test(urine) Negative PAWSS Have you Been Recently Intoxicated or Drunk Within the Last 30 days?: No Have you Ever Experienced Previous Episodes of Alcohol Withdrawal?: No Have you ever Experienced Withdrawal Seizures?: No Have you ever Experienced Delirium Tremens(DT)s?: No Have you ever undergone Alcohol Rehabilitation Treatment (i.e, inpt ot outpatient treatment programs)?: No Have you ever Experienced Blackouts?: No Have you ever Combined Alcohol with other Downers within the last 90 days?: No Have you ever Combined Alcohol with any other Substance of Abuse during the last 90 days?: No Positive Blood Alcohol level on Presentation? [PCS.BAL]: No Evidence of Increased Autonomic Activity (i.e. HR>120, tremor, sweating, agitation, nausea)?: No Result: 0
[2023-07-29] MEDS: Lidocaine 5% Patch 1 PATCH TP (08:48)
[2023-07-29] MEDS: Ketorolac 30 MG/ML VIAL IM (08:48)
[2023-07-29] MEDS: diazePAM 5 MG TAB PO (08:48)
[2023-07-29] MEDS: Acetaminophen 500 MG TAB 1000 MG PO (08:48)
[2023-07-29 09:59] VITALS: BP 156/87; PULSE 75; RESP 20; O2SAT 100
== END 2023-07-29 10:00 | disposition home or self-care (01) ==
PROVIDERS: Emergency Provider Student in an Organized Health Care Education/Training Program; PCP Nurse Practitioner Family
DX: M54.50 Low back pain, unspecified (principal); R20.2 Paresthesia of skin
CPT/HCPCS: 99284; J1885

== ENCOUNTER → 2023-07-29 10:01 | Outpatient (CLI) | payer MEDICAID, SELFPAY ==
--- NOTE | 2023-07-29 08:45 | DI.MRI_ITS ---
Exam(s) MR LUMBAR SPINE WO EXAM: MR LUMBAR SPINE WO CLINICAL HISTORY: no improvement with PT, lower back pain, M54.50. TECHNIQUE: Multiplanar multisequence MRI of the Lumbar spine was performed. COMPARISON: CR XR LUMBAR SPINE COMPLETE from 05/28/2023 FINDINGS: Bones: The last intervertebral disc space is designated the L5/S1 level for the numbering purpose of this examination. The vertebral body heights are well maintained. Alignment is satisfactory. The si gnal characteristics are unremarkable. Cord: The conus tip ends at the T12 level. It is of normal size and signal intensity. T12-L1: No disc herniations or bulges are present. No central spinal canal or neural foraminal stenos is. L1-2: No disc herniations or bulges are present. No central spinal canal or neural foraminal stenosis . L2-3: No disc herniations or bulges are present. No central spinal canal or neural foraminal stenosis . L3-4: There is a small central disc herniation. There is mild narrowing of the central spinal canal. No nerve root compression or neural foraminal stenosis is seen. L4-5: There is a moderate size central disc herniation. There is compression on the right L5 nerve r oot. There is mild narrowing of the central spinal canal. No significant neural foraminal stenosis. L5-S1: There is a central and left paracentral disc herniation. There may be mild impingement upon t he left S1 nerve root. There is mild extension into the left neural foramen causing mild left neural foraminal narrowing. No central or right neural foraminal stenosis. Soft tissues: The visualized SI joints and sacrum are well maintained. The paraspinal soft tissues ar e unremarkable. IMPRESSION: 1. Disc herniation at L5-S1 which does appear to cause mild impingement on the left S1 nerve root and cause mild left neural foraminal stenosis. 2. Moderate size disc herniation at L4-L5 compressing the right L5 nerve root. There is mild narrowi ng of the central spinal canal. 3. Small central disc herniation at L3-L4 without significant nerve root compression or neural forami nal stenosis. DATA REPOSITORY:
== END ==
PROVIDERS: PCP Nurse Practitioner Family; Visit Provider Nurse Practitioner Family
DX: M51.36 Other intervertebral disc degeneration, lumbar region (principal); M99.63 Osseous and subluxation stenosis of intervertebral foramina of lumbar region
CPT/HCPCS: 72148

== ENCOUNTER 2023-09-12 07:19 | Emergency (ER) | payer MEDICAID, SELFPAY ==
[2023-09-12 07:22] VITALS: BP 131/90; PULSE 90; RESP 18; TEMP 36.4; O2SAT 100
--- OUTSIDE RECORDS SUMMARY | 2023-09-12 07:31 | XMS_ITS | Continuity of Care Document ---
Author Name Unknown Organization [facility] Ambulatory Clinics Address [address] [place] [address] Care Team Providers Care Truck Driver Flatbed Name Role Phone KWAKU VELASCO DNP Primary Care Physician Encounter [facility] NBR [id number] Date(s): 08/26/23 - 08/26/23 [facility] Ambulatory Clinics [address] [place] [address]- us Discharge Disposition: Home Patient Care team information Care Team Personnel Name: KWAKU VELASCO DNP Position: No Access Member Role: Primary Care Physician Address: Address: [address] [address]
--- NOTE | 2023-09-12 07:51 | W.ED.GENAD ---
HPI General Stated Complaint: RespSymp PILLO: 4 Date/Time Provider Initiated Documentation: 09/12/23 07:26. Limitations to Documentation: no limitations. Information obtained by: patient and RN notes reviewed. History of Present Illness dry cough, congestion, sore throat, left ear pain moderate day(s) (2) constant No relieving factors improve symptom(s), No exacerbating factors reported cough and fever/chills; denies chest pain, diaphoresis, headaches, loss of appetite, nausea/vomiting, rash and shortness of breath none Related Data Home Medications Medication Instructions Recorded Confirmed levonorgestrel-ethinyl estradiol 1 tab PO DAILY #84 tabs 04/18/23 09/12/23 0.1 mg-20 mcg tablet (Vienva) bupropion HCl 100 mg tablet 100 mg PO BID #60 tabs 05/21/23 09/12/23 fluoxetine 10 mg capsule 10 mg PO QAM #90 caps 05/21/23 09/12/23 cyclobenzaprine 10 mg tablet 10 mg PO HS PRN muscle spasm #30 08/18/23 09/12/23 tabs Previous Rx's Medication Instructions Recorded levonorgestrel-ethinyl estradiol 1 tab PO DAILY #84 tabs 04/18/23 0.1 mg-20 mcg tablet (Vienva) bupropion HCl 100 mg tablet 100 mg PO BID #60 tabs 05/21/23 fluoxetine 10 mg capsule 10 mg PO QAM #90 caps 05/21/23 cyclobenzaprine 10 mg tablet 10 mg PO HS PRN muscle spasm #30 08/18/23 tabs Allergies Allergy/AdvReac Type Severity Reaction Status Date / Time No Known Allergies Allergy Verified 08/18/23 14:52 Review of Systems Constitutional Constitutional: Reports as per HPI and Denies headache(s) Eyes Eyes: Reports as per HPI, Denies eye discharge and Denies irritation ENT Ears, Nose, Mouth, and Throat: Reports as per HPI and Denies headache(s) Cardiovascular Cardiovascular: Reports as per HPI, Denies chest pain and Denies dyspnea Respiratory Respiratory: Reports as per HPI and Denies dyspnea Gastrointestinal Gastrointestinal: Reports as per HPI, Denies nausea and Denies vomiting Integumentary/Breasts Skin/Breast: Reports as per HPI and Denies rash Neurologic Neurologic: Reports as per HPI and Denies headache(s) PFSH All Active Problems (Updated 09/12/23 @ 08:00 by SHAUN Rose) URI (upper respiratory infection) (Acute) Lower back pain (Acute) NAFLD (nonalcoholic fatty liver disease) (Acute) FIGUEROA Chronic GERD (Acute) History of anal fissures (Acute) Biliary dyskinesia (Acute) BMI 40.0-44.9, adult (Acute) Generalized anxiety disorder (Acute) Oral contraceptive use (Acute) Pelvic pain (Acute) Medical History Cough Postprandial RUQ pain Rhinosinusitis URI (upper respiratory infection) History of hemorrhoids Bright red rectal bleeding Depressed Rash Humerus lesion, right Tendonitis of long head of biceps brachii of right shoulder Tonsillitis Left foot pain Smoker (09/23/17) Increased body mass index (BMI) (10/23/17) Surgical History History of laparoscopic cholecystectomy (~03/18/23) No significant past surgical history Family History Mother Asthma Father Alcohol abuse Essential hypertension Diabetes Paternal Grandfather Parkinson disease Paternal Grandmother Essential hypertension Asthma Social History Smoking/Tobacco Use Status: Current every day Tobacco Type: e-cigarettes Tobacco: How many years used: 4 Quit status: considering quitting Second Hand Exposure: Yes Counseling given: counseling >3 minutes Smoking risk assessment performed?: Yes Alcohol Intake: current Alcohol Intake frequency: a few times a week Alcohol type: beer Drug use: Rarely Substance use type: marijuana Caregiver/Support person: No Household members: family Housing: house Pets and animals: Yes Pets and animals: dog(s), horse(s), turtle(s) and farm animals Sexually active: No Do you think of yourself as: straight/heterosexual Current gender identity: female What is your relationship status?: never How often do you talk on the phone with friends or family?: three or more times per week How often do you get together with friends or relatives?: three or more times per week How often do you attend yazidism or voodoo services?: 4 or more times per year Do you belong to any clubs or organized social groups?: no Panel score (0-1 are the most socially isolated patients): 2 What type of physical activity do you participate in: walking and other 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 Date GA/Weeks # Preg Succ Route Wgt Sex Labor Lgth Anesthesia Location Prov Complic 07/29/21 4 Delivery Date: 07/29/21 Last Updated by: Tamiko Beach MD Medical [facility] at Exam Const General: cooperative, healthy appearing, comfortable, no acute distress, well developed and well groomed Nutritional Appearance: well nourished and obese Orientation: alert and awake HENMT Head: normal to inspection, normocephalic and atraumatic Ears: hearing grossly normal bilaterally, external ears normal and TM's normal bilaterally General nose exam: external nose normal and nares normal Face and sinus: normal facial exam, sinuses nontender and face symmetric Mouth: oral mucosae normal, lip normal, tongue normal, oropharynx normal and moist mucous membranes Teeth and gingiva: dentition normal Throat: posterior oropharynx normal, tonsils normal and uvula midline Eyes General: appearance normal, both eyes and all related structures Neck Neck: normal visual inspection, full ROM and no lymphadenopathy Resp Effort & Inspection: normal respiratory effort, able to speak in complete sentences and no respiratory distress Auscultation: clear to auscultation bilaterally, no rales, no rhonchi and no wheezes Cardio Rate: regular rate Rhythm: regular rhythm Heart Sounds: S1 normal and S2 normal Skin General skin exam: no rashes or lesions noted Neuro General: patient alert and patient awake Cognition: normal cognition Speech: speech normal Gait: normal gait Course Vital Signs Vital signs: Vital Signs Temperature 36.4 C 09/12/23 07:22 Pulse 90 09/12/23 07:22 Respiratory Rate 18 09/12/23 07:22 Blood Pressure 131/90 09/12/23 07:22 Pulse Oximetry 100 09/12/23 07:22 Temperature 36.4 C 09/12/23 07:22 Temperature Source Tympanic 09/12/23 07:22 Pulse 90 09/12/23 07:22 Respiratory Rate 18 09/12/23 07:22 Blood Pressure 131/90 09/12/23 07:22 Pulse Oximetry 100 09/12/23 07:22 Oxygen Delivery Method Room Air 09/12/23 07:22 Oxygen Flow Rate 0 09/12/23 07:22 Medical Decision Making The patient is a pleasant 23-year-old otherwise healthy female presenting today with chief complaint of cough, congestion, left ear pain, sore throat. She reports this began about 2 days ago. Denies fevers but states that she did feel slightly chilly last night. States that she has had soft stools, 1 bowel movement this morning which was nonbloody. LMP was just few days ago. Denies any shortness of breath or chest pain. Patient is negative here for influenza and COVID. Has not tried any analgesics, is endorsing some bodyaches. On exam, patient appears nontoxic. She is hemodynamically stable. Slightly red posterior oropharynx, otherwise ENT exam is without significant findings. Lungs are clear in all vogt. Patient does not appear systemically ill. Discussed findings of the flu and COVID test here. Will give the patient Tylenol to help with her body aches. Encourage hydration, supportive care. Follow-up with primary care in 2 weeks. Return precautions discussed. All her questions and concerns were addressed and she is in agreement this plan. Quality:[facility] Health Related Social Needs: No Data to Display Discharge Plan Disposition Patient Disposition: Home Condition: Good Discharge Details Clinical Impression: URI (upper respiratory infection) Primary Care Provider: Timmy Bolton ED Provider: Anum Funes Home Meds and New Rx's Prescriptions: Continued fluoxetine 10 mg capsule 10 mg PO QAM Qty: 90 4RF bupropion HCl 100 mg tablet 100 mg PO BID Qty: 60 0RF cyclobenzaprine 10 mg tablet 10 mg PO HS PRN (Reason: muscle spasm) Qty: 30 0RF levonorgestrel-ethinyl estrad [Vienva] 0.1-20 mg-mcg tablet 1 tab PO DAILY Qty: 84 4RF Discharge Instructions Instructions: Upper Respiratory Infection (ED) Additional Instructions: Your testing for flu and COVID were negative here today. However, I am concerned that you have an upper respiratory infection such as a cold or other viral infection. Please continue to encourage hydration. You may continue with Tylenol and/or ibuprofen as directed on the packaging to help with bodyaches and discomfort. You were given dose of Tylenol here today. Please follow-up with your primary care in 2 weeks for reevaluation. If you develop any difficulty breathing, shortness of breath, inability stay hydrated or other new/worsening symptoms to seek care urgently once again. Please take care to wash her hands and wear mask when appropriate. Referrals: Timmy Bolton, [facility] [Primary Care Provider] -
[2023-09-12 08:19] LABS: COVID-19 PCR Negative (Negative); Influenza A PCR Positive (Negative); Influenza B PCR Negative (Negative); RSV PCR Negative (Negative); Source Nasopharynx
[2023-09-12] MEDS: Acetaminophen 325 MG TAB 650 MG PO (08:22)
== END 2023-09-12 08:20 | disposition home or self-care (01) ==
PROVIDERS: Student in an Organized Health Care Education/Training Program; Emergency Provider Physician Assistant; PCP Nurse Practitioner Family
DX: J10.1 Influenza due to other identified influenza virus with other respiratory manifestations (principal); F17.210 Nicotine dependence, cigarettes, uncomplicated; Z11.52 Encounter for screening for COVID-19
CPT/HCPCS: 87426; 87637; 99283

== ENCOUNTER 2023-09-26 07:35 | Emergency (ER) | payer MEDICAID, SELFPAY ==
[2023-09-26 07:39] VITALS: BP 163/88; PULSE 94; RESP 16; TEMP 36.5; O2SAT 100
--- NOTE | 2023-09-26 08:00 | DI.US_ITS ---
Exam(s) US LOWER EXTREMITY VENOUS LT EXAM: US LOWER EXTREMITY VENOUS LT CLINICAL HISTORY: pain and swelling TECHNIQUE: Grayscale, color, and doppler imaging of the deep venous system of the left lower extremi ty was performed. COMPARISON: US US ABDOMEN from 12/13/2022 FINDINGS: There is no evidence of intraluminal thrombus and there is normal compression and augmentation demons trated within the common femoral vein, femoral vein, and popliteal vein. In the ipsilateral calf the interrogated veins also exhibit normal compression/ augmentation properti es. The ipsilateral saphenofemoral junction is patent. IMPRESSION: 1. No evidence of DVT in the left lower extremity. DATA REPOSITORY:
[2023-09-26] MEDS: Ibuprofen 600 MG TAB PO (08:40)
--- NOTE | 2023-09-26 09:22 | ED.GENADUL_ITS ---
HPI General Mode of arrival: ambulatory . Date/Time Provider Initiated Documentation: 09/26/23 07:54 . Limitations to Documentation: no limitations . Information obtained by: patient . HPI Narrative: 23-year-old female here with left foot pain and associated swelling. Patient denies known injury. She states she woke up for this discomfort today. She states this does happen intermittently with her left foot. Patient is currently wearing crocs with thin socks. She notes that she wears crocs because they are comfortable do not compress the top of her foot. Related Data Home Medications Medication Instructions Recorded Confirmed levonorgestrel-ethinyl estradiol 1 tab PO DAILY #84 tabs 04/18/23 09/26/23 0.1 mg-20 mcg tablet (Vienva) bupropion HCl 100 mg tablet 100 mg PO BID #60 tabs 05/21/23 09/26/23 fluoxetine 10 mg capsule 10 mg PO QAM #90 caps 05/21/23 09/26/23 cyclobenzaprine 10 mg tablet 10 mg PO HS PRN muscle spasm #30 08/18/23 09/26/23 tabs Previous Rx's Medication Instructions Recorded levonorgestrel-ethinyl estradiol 1 tab PO DAILY #84 tabs 04/18/23 0.1 mg-20 mcg tablet (Vienva) bupropion HCl 100 mg tablet 100 mg PO BID #60 tabs 05/21/23 fluoxetine 10 mg capsule 10 mg PO QAM #90 caps 05/21/23 cyclobenzaprine 10 mg tablet 10 mg PO HS PRN muscle spasm #30 08/18/23 tabs Allergies Allergy/AdvReac Type Severity Reaction Status Date / Time No Known Allergies Allergy Verified 09/26/23 07:41 General Stated Complaint: Orthopedic PILLO: 4 Review of Systems Constitutional Constitutional: Denies fever(s) Musculoskeletal Musculoskeletal: Reports as per HPI Exam Extrem General: calf tenderness on the left Right lower extremity: ankle Details: tenderness Location: anterolaterally and posteriorly; no unusual warmth and no ecchymosis and foot Details: normal capillary refill; no unusual warmth Course Vital Signs Vital signs: Vital Signs Temperature 36.5 C 09/26/23 07:39 Pulse 94 H 09/26/23 07:39 Respiratory Rate 16 09/26/23 07:39 Blood Pressure 163/88 H 09/26/23 07:39 Pulse Oximetry 100 01/19/24 07:39 Temperature 36.5 C 09/26/23 07:39 Pulse 94 H 09/26/23 07:39 Respiratory Rate 16 09/26/23 07:39 Blood Pressure 163/88 H 09/26/23 07:39 Blood Pressure Position Sitting 09/26/23 07:39 Pulse Oximetry 100 09/26/23 07:39 Oxygen Delivery Method Room Air 09/26/23 07:39 Oxygen Flow Rate 0 09/26/23 07:39 Medical Decision Making 23-year-old female here with left foot pain and associated swelling. Patient has mild swelling posterior ankle with tenderness posterior lateral and dorsal proximal foot. Patient is neurovascular intact. She does have some mild calf tenderness. No traumatic injury. Considered DVT. Ultrasound of the left lower extremity was obtained to evaluate for DVT. This was interpreted by radiology as negative. Results were discussed with the patient. I recommended patient follow-up with podiatry regarding foot discomfort. I also recommended she wear supportive shoes and protect her feet from cold weather with appropriate socks and insulation. Patient was notably hypertensive today. She was informed of this and I recommended she monitor and follow-up with her primary care physician. Usual customary discharge instructions reviewed with the patient. Quality:SDOH Health Related Social Needs: No Data to Display PFSH All Active Problems (Updated 09/26/23 @ 09:26 by Abran Us MD) Left foot pain (Acute) URI (upper respiratory infection) (Acute) Lower back pain (Acute) NAFLD (nonalcoholic fatty liver disease) (Acute) FIGUEROA Chronic GERD (Acute) History of anal fissures (Acute) Biliary dyskinesia (Acute) BMI 40.0-44.9, adult (Acute) Generalized anxiety disorder (Acute) Oral contraceptive use (Acute) Pelvic pain (Acute) Medical History Cough Postprandial RUQ pain Rhinosinusitis URI (upper respiratory infection) History of hemorrhoids Bright red rectal bleeding Depressed Rash Humerus lesion, right Tendonitis of long head of biceps brachii of right shoulder Tonsillitis Left foot pain Smoker (09/23/17) Increased body mass index (BMI) (10/23/17) Surgical History History of laparoscopic cholecystectomy (~07/11/23) No significant past surgical history Family History Mother Asthma Father Alcohol abuse Essential hypertension Diabetes Paternal Grandfather Parkinson disease Paternal Grandmother Essential hypertension Asthma Social History Smoking/Tobacco Use Status: Current every day Tobacco Type: e-cigarettes Tobacco: How many years used: 4 Quit status: considering quitting Second Hand Exposure: Yes Counseling given: counseling >3 minutes Smoking risk assessment performed?: Yes Alcohol Intake: current Alcohol Intake frequency: a few times a week Alcohol type: beer Drug use: Rarely Substance use type: marijuana Caregiver/Support person: No Household members: family Housing: house Pets and animals: Yes Pets and animals: dog(s), horse(s), turtle(s) and farm animals Sexually active: No Do you think of yourself as: straight/heterosexual Current gender identity: female What is your relationship status?: never How often do you talk on the phone with friends or family?: three or more times per week How often do you get together with friends or relatives?: three or more times per week How often do you attend jehovah's witness or zoroastrianism services?: 4 or more times per year Do you belong to any clubs or organized social groups?: no Panel score (0-1 are the most socially isolated patients): 2 What type of physical activity do you participate in: walking and other 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, BARN CHORES Duration: 15-30 minutes/day Frequency: 5-6 times per week Yadira/Denominational: Bahai Do you feel safe at home: Yes Do you feel safe in your relationship?: Yes History History 1 Para 0 Hx # Term Pregnancies Multiple births Hx # Pregnancies Ectopic pregnancies AB induced 1 Hx Number of Living Children AB spontaneous Past Pregnancies Del. Date GA/Weeks # Preg Succ Route Wgt Sex Labor Lgth Anesth esia Location Prov Complic 07/29/21 4 Delivery Date: 07/29/21 Last Updated by: Tamiko Beach MD [facility] at Discharge Plan Disposition Patient Disposition: Home Condition: Stable Discharge Details Clinical Impression: Left foot pain Primary Care Provider: Timmy Bolton ED Provider: Abran Us Home Meds and New Rx's Prescriptions: Continued fluoxetine 10 mg capsule 10 mg PO QAM Qty: 90 4RF bupropion HCl 100 mg tablet 100 mg PO BID Qty: 60 0RF cyclobenzaprine 10 mg tablet 10 mg PO HS PRN (Reason: muscle spasm) Qty: 30 0RF levonorgestrel-ethinyl estrad [Vienva] 0.1-20 mg-mcg tablet 1 tab PO DAILY Qty: 84 4RF Discharge Instructions Additional Instructions: Please take acetaminophen (tylenol) - 650mg every 6 hours by mouth as needed for pain. Please take ibuprofen over the counter. Take 600mg by mouth every 6 hours as needed for pain. Use crutches and weight-bear as tolerated. Please follow-up with podiatry. Please follow-up with your spinal specialist. Please wear warm socks and shoes that are supportive. Please contact your primary care physician to arrange follow-up. Return to the ER immediately for any worsening or new concerning symptoms. Stand Alone Forms: Work Release Referrals: Timmy Bolton NP [Primary Care Provider] - Discharge Data Discharge Date/Time-TO BE ENTERED AT DEPARTURE: 09/26/23 09:55
== END 2023-09-26 09:55 | disposition home or self-care (01) ==
PROVIDERS: Emergency Provider Student in an Organized Health Care Education/Training Program; PCP Nurse Practitioner Family
DX: M79.672 Pain in left foot (principal); R03.0 Elevated blood-pressure reading, without diagnosis of hypertension; F17.290 Nicotine dependence, other tobacco product, uncomplicated
CPT/HCPCS: 99284; 93971

== ENCOUNTER 2023-10-01 15:46 | Outpatient (REF) | payer MEDICAID, SELFPAY | END 2023-10-01 15:47 | disposition home or self-care (01) | LOC: LBN 15:46 | PROVIDERS: PCP Nurse Practitioner Family; Visit Provider Advanced Practice Midwife | DX: N94.89 Other specified conditions associated with female genital organs and menstrual cycle (principal); N89.8 Other specified noninflammatory disorders of vagina | CPT/HCPCS: 87480; 87510; 87660 ==

== ENCOUNTER → 2023-10-03 15:00 | Outpatient (CLI) | payer MEDICAID, SELFPAY ==
--- NOTE | 2023-10-03 | DI.RAD_ITS ---
Exam(s) XR FOOT LT COMPLETE EXAM: XR FOOT LT COMPLETE CLINICAL HISTORY: LOCALIZED SWELLING LT FOOT, R22.42. TECHNIQUE: 2D digital imaging was performed. Three views. COMPARISON: No exams were available for comparison FINDINGS: BONES: No acute fracture is present. No bony destructive lesion is seen. JOINTS: No dislocation present. SOFT TISSUE: Normal. IMPRESSION: Unremarkable radiographs of the left foot. DATA REPOSITORY: RADIATION DOSE DELIVERED:
== END ==
PROVIDERS: PCP Nurse Practitioner Family; Visit Provider Neurological Surgery
DX: R22.42 Localized swelling, mass and lump, left lower limb (principal)
CPT/HCPCS: 73630

== ENCOUNTER 2023-11-12 15:42 | Outpatient (REF) | payer MEDICAID, SELFPAY ==
--- NOTE | 2023-11-12 13:45 | SKI_PTH ---
PATIENT: Yadira Adams LOC: [facility] U#:[id number] AGE/SX: 23/F ROOM: RE11/12/[address]: Timmy Toro DNP : 2000 BED: DIS: 11/12/2023 SPEC #: [id number] RECD: 11/13/23 12:38 STATUS: ULICES GROSSMAN #: [id number] ERA: 11/12/23 13:[address]: Timmy Bolton DEPT: Surgical Specimen RECD BY: Sheila Bond Tissues: 1 - SKIN BIOPSY(SHAVE/PUNCH) Procedures: SKIN LEVEL 4 SPECIAL STAIN 1 Comments: [id number]
== END 2023-11-12 15:43 | disposition home or self-care (01) ==
LOC: LBN 15:42
PROVIDERS: PCP Nurse Practitioner Family; Visit Provider Nurse Practitioner Family
DX: L30.9 Dermatitis, unspecified (principal)
CPT/HCPCS: 88305; 88312

== ENCOUNTER 2023-11-22 16:37 | Emergency (ER) | payer MEDICAID, SELFPAY ==
[2023-11-22] VITALS (8 sets, daily range): BP systolic 178; BP diastolic 81; PULSE 94–124; RESP 18; TEMP 36.9; O2SAT 97–100
--- NOTE | 2023-11-22 17:01 | ED.GENADUL_ITS ---
Discharge Plan Disposition Patient Disposition: Home Condition: Stable Discharge Details Clinical Impression: Nausea vomiting and diarrhea Primary Care Provider: Timmy Bolton ED Provider: Sheila Haas Home Meds and New Rx's Prescriptions: New hyoscyamine sulfate [Oscimin] 0.125 mg tablet 0.125 mg PO QID Qty: 10 0RF ondansetron 4 mg tablet,disintegrating 4 mg PO Q8H PRN PRN5 Days Qty: 5 0RF mupirocin 2 % ointment 1 applic topical TID Qty: 22 0RF Continued gabapentin 300 mg capsule 300 mg PO TID clotrimazole-betamethasone 1-0.05 % cream 1 applic topical BID 14 Days Qty: 15 0RF fluoxetine 10 mg capsule 10 mg PO QAM Qty: 90 4RF levonorgestrel-ethinyl estrad [Vienva] 0.1-20 mg-mcg tablet 1 tab PO DAILY Qty: 84 4RF cephalexin 500 mg capsule 500 mg PO QID Qty: 20 0RF Hold Instructions: Pt Stopped/Never Started Discharge Instructions Instructions: Acute Nausea and Vomiting (ED) Additional Instructions: Take Zofran as needed for nausea and vomiting Clear liquid diet as tolerated Followed by bland diet, saltines, toast, applesauce, bananas May take Levsin as needed for cramping in your abdomen Ibuprofen and Tylenol as needed for pain Stop taking the Keflex Return earlier should you have new or worsening complaints Referrals: Timmy Bolton, ENTRY EXAMINER [Primary Care Provider] - HPI General Date/Time Provider Initiated Documentation: 11/22/23 16:47 . HPI Narrative: This 23-year-old female presents with nausea, vomiting, diarrhea. Sick contacts at work had also started Keflex 3 days ago and wondering if it is making her albino seous and vomit. Denies any chest pain or shortness of breath. Denies any dizziness or weakness. States she feels shaky. Denies fever. Denies any known chance of . Denies any dysuria or frequency. Related Data Home Medications Medication Instructions Recorded Confirmed levonorgestrel-ethinyl estradiol 1 tab PO DAILY #84 tabs 04/18/23 11/22/23 0.1 mg-20 mcg tablet (Vienva) fluoxetine 10 mg capsule 10 mg PO QAM #90 caps 05/21/23 11/22/23 gabapentin 300 mg capsule 300 mg PO TID 11/05/23 11/22/23 clotrimazole-betamethasone 1 1 applic topical BID 2 weeks #15 11/12/23 11/22/23 %-0.05 % topical cream grams cephalexin 500 mg capsule 500 mg PO QID #20 caps 11/18/23 11/22/23 hyoscyamine sulfate 0.125 mg 0.125 mg PO QID #10 tabs 11/22/23 tablet (Oscimin) mupirocin 2 % topical ointment 1 applic topical TID #22 grams 11/22/23 ondansetron 4 mg disintegrating 4 mg PO Q8H PRN PRN 5 days #5 tabs 11/22/23 tablet Previous Rx's Medication Instructions Recorded levonorgestrel-ethinyl estradiol 1 tab PO DAILY #84 tabs 04/18/23 0.1 mg-20 mcg tablet (Vienva) fluoxetine 10 mg capsule 10 mg PO QAM #90 caps 05/21/23 clotrimazole-betamethasone 1 1 applic topical BID 2 weeks #15 11/12/23 %-0.05 % topical cream grams cephalexin 500 mg capsule 500 mg PO QID #20 caps 11/18/23 hyoscyamine sulfate 0.125 mg 0.125 mg PO QID #10 tabs 11/22/23 tablet (Oscimin) mupirocin 2 % topical ointment 1 applic topical TID #22 grams 11/22/23 ondansetron 4 mg disintegrating 4 mg PO Q8H PRN PRN 5 days #5 tabs 11/22/23 tablet Allergies Allergy/AdvReac Type Severity Reaction Status Date / Time No Known Allergies Allergy Verified 11/22/23 16:43 General Stated Complaint: Nausea/Vomit/Diar PILLO: 3 Course Vital Signs Vital signs: Vital Signs Temperature 36.9 C 11/22/23 16:39 Pulse 124 H 11/22/23 16:39 Respiratory Rate 18 11/22/23 16:39 Blood Pressure 178/81 H 11/22/23 16:39 Pulse Oximetry 99 11/22/23 16:39 Temperature 36.9 C 11/22/23 16:39 Temperature Source Skin 03/16/24 16:39 Pulse 124 H 11/22/23 16:39 Respiratory Rate 18 11/22/23 16:39 Blood Pressure 178/81 H 11/22/23 16:39 Blood Pressure Position Sitting 11/22/23 16:39 Pulse Oximetry 99 11/22/23 16:39 Oxygen Delivery Method Room Air 11/22/23 16:39 Oxygen Flow Rate 0 11/22/23 16:39 Medical Decision Making 20-year-old female presenting nausea vomiting diarrhea, incidentally started Keflex 3 days ago Abdomen tender in the right lower quadrant, no rebound or guarding, alert and oriented x 4, moist mucous membranes, afebrile, mild hypertension Negative test, loss of evidence of dehydration on chemistry panel encased, CBC with mild leukocytosis, urinalysis without evidence of infection CT scan shows evidence of gastroenteritis per radiology interpretation my review, no other acute findings Patient is able to tolerate p.o. Received 2 L of LR, antiemetics Return precautions reviewed and patient expressed understanding Denies chest pain or shortness of breath Reports significant symptomatic improvement at time of reassessment Quality:SDOH Health Related Social Needs: No Data to Display PFSH All Active Problems (Updated 11/22/23 @ 19:50 by SHAUN Blankenship) Nausea vomiting and diarrhea (Acute) Lumbar disc herniation with radiculopathy (Acute) Lower back pain (Chronic) Eczema (Acute) Encounter for counseling regarding contraception (Acute) Class 3 obesity (Acute) Vaginal discomfort (Acute) NAFLD (nonalcoholic fatty liver disease) (Acute) FIGUEROA Chronic GERD (Chronic) Biliary dyskinesia (Acute) BMI 40.0-44.9, adult (Acute) Generalized anxiety disorder (Acute) Oral contraceptive use (Acute) Pelvic pain (Acute) Medical History History of anal fissures Cough Postprandial RUQ pain Rhinosinusitis URI (upper respiratory infection) History of hemorrhoids Bright red rectal bleeding Depressed Rash Humerus lesion, right Tendonitis of long head of biceps brachii of right shoulder Tonsillitis Left foot pain Smoker (09/23/17) Increased body mass index (BMI) (10/23/17) Surgical History History of laparoscopic cholecystectomy (~03/18/23) No significant past surgical history Family History Mother Asthma Father Alcohol abuse Essential hypertension Diabetes Paternal Grandfather Parkinson disease Paternal Grandmother Essential hypertension Asthma Social History Smoking/Tobacco Use Status: Current every day Tobacco Type: e-cigarettes Tobacco: How many years used: 4 Quit status: considering quitting Second Hand Exposure: Yes Counseling given: counseling >3 minutes Smoking risk assessment performed?: Yes Alcohol Intake: current Alcohol Intake frequency: a few times a week Alcohol type: beer Drug use: Rarely Substance use type: marijuana Details: edible Caregiver/Support person: No Household members: family Housing: house Pets and animals: Yes Pets and animals: dog(s), horse(s), turtle(s) and farm a nimals Sexually active: No Do you think of yourself as: straight/heterosexual Current gender identity: female What is your relationship status?: never How often do you talk on the phone with friends or family?: three or more times per week How often do you get together with friends or relatives?: three or more times per week How often do you attend taoism or sikh services?: 4 or more times per year Do you belong to any clubs or organized social groups?: no Panel score (0-1 are the most socially isolated patients): 2 What type of physical activity do you participate in: walking and other 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, BARN CHORES Duration: 15-30 minutes/day Frequency: 5-6 times per week Yadira/Confucianist: Caodaism Do you feel safe at home: Yes Do you feel safe in your relationship?: Yes History History 1 Para 0 Hx # Term Pregnancies Multiple births Hx # Pregnancies Ectopic pregnancies AB induced 1 Hx Number of Living Children AB spontaneous Past Pregnancies Del. Date GA/Weeks # Preg Succ Route Wgt Sex Labor Lgth Anesth esia Location Prov Complic 07/29/21 4 Delivery Date: 07/29/21 Last Updated by: Tamiko Beach MD [facility]
[2023-11-22 17:10] LABS: Abs Immature Grans 0.05 10^3/uL (0.0-0.06); Absolute Basophil Count 0.03 10^3/uL (0.0-0.2); Absolute Eosinophil Count 0.03 10^3/uL (0.0-0.7); Absolute Lymphocyte Count 0.63 10^3/uL (1.2-3.4); Absolute Monocyte Count 0.35 10^3/uL (0.1-0.8); Basophils % 0.2; Eosinophils % 0.2; HCT 42.3 % (36.0-46.0); HGB 13.9 g/dL (11.2-15.7); Immature Grans % 0.4; Lymphocytes % 4.7; MCH 28.8 pg (27.0-33.0); MCHC 32.9 % (32.0-36.0); MCV 88 fL (80-95); MPV 8.7 fL (8.0-11.0); Monocytes % 2.6; Neutrophils % 91.9; Platelet Count 276 10^3/uL (130-400); RBC 4.82 10^6/uL (3.93-5.22); RDW 13.6 % (11.7-14.6); WBC 13.35 10^3/uL (4.4-10.8)
[2023-11-22 17:13] LABS: Absolute Neutrophil Count 12.27 10^3/uL (1.2-6.7)
[2023-11-22] MEDS: Prochlorperazine 10 MG/2 ML VIAL 5 MG IVP (17:18)
[2023-11-22] MEDS: Famotidine 20 MG/2 ML VIAL IVP (17:19)
[2023-11-22] MEDS: MORPHine 4 MG/ML SYR IVP (17:19)
[2023-11-22] MEDS: Lactated Ringers 1,000 ML 1000 ML IV ×2 (17:19→19:09)
[2023-11-22 17:25] LABS: ALT 33 U/L (14-59); AST 19 U/L (15-37); Albumin 3.9 g/dL (3.4-5.0); Alkaline Phosphatase 52 U/L (46-116); Anion Gap 13.8 mmol/L (3-11); BUN 15 mg/dL (7-18); Bilirubin, Total 0.5 mg/dL (0.2-1.0); CO2 23.2 mmol/L (21.0-32.0); CREATININE 1.2 mg/dL (0.55-1.02); Chloride 105 mmol/L (98-107); Estimated GFR 65.23 (mL/min/1.73m2); Glucose 100 mg/dL (74-106); Lipase 30 U/L (16-77); Potassium 3.9 mmol/L (3.5-5.1); Sodium 142 mmol/L (136-145); Total Protein 7.9 g/dL (6.4-8.2)
[2023-11-22 18:05] LABS: HCG Qual (Serum) Negative
[2023-11-22] MEDS: Omnipaque 350 MG/ML 100 ML BTL IJ (18:33)
[2023-11-22] MEDS: Normal Saline - Diluent 50 ML VIAL IJ ×2 (18:35→18:36)
--- NOTE | 2023-11-22 18:39 | DI.CT_ITS ---
Exam(s) CT ABDOMEN PELVIS W EXAM: CT ABDOMEN PELVIS W CLINICAL HISTORY: RLQ pain. TECHNIQUE: Imaging Protocol: Axial computed tomography images with coronal and sagittal reformatted images were created and reviewed CONTRAST MATERIAL: Intravenous: Omnipaque-350 100cc Oral: None COMPARISON: CT CT ABDOMEN PELVIS WO from 02/24/2023 FINDINGS: VISUALIZED LUNG BASES: No nodules nor pleural effusions evident. ABDOMEN: There is no ascites. LIVER: Liver is hypodense implying an element of steatosis there. No discrete focal hepatic lesions. No dilated intrahepatic ducts. GALLBLADDER/BILIARY: The gallbladder is now surgically absent. CBD is not dilated. PANCREAS: No evidence of pancreatic mass nor dilatation of the pancreatic duct. SPLEEN: Spleen is not enlarged. No obvious intrasplenic lesions. Splenic and portal veins are paten t. ADRENALS: There are no significant adrenal masses. KIDNEYS:No cysts evident. No solid renal masses. No calculi nor hydronephrosis.. ABDOMINAL AORTA: Abdominal aorta is not enlarged. LYMPH NODES:There is no retroperitoneal nor paraaortic adenopathy. ABDOMINAL WALL: No evidence of significant anterior abdominal wall nor inguinal hernia. GI: The gastrointestinal tract is filled with fluid. Stomach is fluid-filled as is the duodenal and small bowel loops.. There is fluid in the ascending-right colon. There is normal appearance of the transverse colon and descending left colon and sigmoid. There is fluid in the rectum. There is no e vidence of bowel obstruction. The appendix appears unremarkable. PELVIS: GI: No evidence of appendicitis.No evidence of sigmoid diverticulitis. LYMPH NODES: There is no intrapelvic nor inguinal adenopathy. REPRODUCTIVE: Uterus and adnexal regions appear age-appropriate. URINARY BLADDER: No calculi nor obvious masses evident OSSEOUS: No fractures and no significant osseous lesions. There appear to be disc herniations at L4-5 and L5-S1 levels. IMPRESSION: 1. The stomach, duodenum and entire small bowel are filled with fluid, as is the ascending colon. Fi ndings are consistent with a gastroenteritis. There is no evidence of appendicitis nor diverticulitis. No bowel obstruction, free air, nor abscess . 2. There has been interval cholecystectomy since the prior CT scan of February 2023. The biliary tree is not dilated. Report called by myself to ER provider RADIATION DOSE DELIVERED: Total DLP DATA REPOSITORY: All CT scans at this facility are submitted to the National Radiology Data Registry (NRDR) Dose Index Registry (DIR) with the [employer] (A[employer]). RADIATION OPTIMIZATION: All CT scans at this facility use at least one of these dose optimization te chniques: automated exposure control; mA and/or kV adjustment per patient size (includes targeted exa ms where dose is matched to clinical indication); or iterative reconstruction.
[2023-11-22 18:47] LABS: Magnesium 1.8 mg/dL (1.8-2.4)
[2023-11-22 19:04] LABS: Bilirubin Negative (Negative); Blood Negative (Negative); Clarity Sl Cloudy (Clear); Glucose Negative (Negative); Ketones 40 mg/dL (Negative); Leukocyte Esterase Negative (Negative); Nitrite Negative (Negative); Specific Gravity >= 1.030 (1.005-1.025); Urobilinogen 0.2 mg/dL (Up to 0.2); pH 5.5 (5-8)
[2023-11-22 19:12] LABS: Bacteria Few HPF (Negative); Crystals Negative HPF (Negative); Epithelial Cells Few HPF (Negative); Mucus Trace (Negative); RBC 0-2 HPF (0-2); WBC 0-2 HPF (0-5)
[2023-11-22 19:13] LABS: C & S Indicated? No; Casts 0-2 Hyaline LPF (Negative)
[2023-11-22] MEDS: Dicyclomine 20 MG TAB (20:05)
[2023-11-22] MEDS: Ondansetron O.D.T. 4 MG TABEF, 3 TABS/BTL PO (20:05)
== END 2023-11-22 20:07 | disposition home or self-care (01) ==
PROVIDERS: Emergency Provider Physician Assistant; PCP Nurse Practitioner Family
DX: R11.2 Nausea with vomiting, unspecified (principal); R19.7 Diarrhea, unspecified; R10.31 Right lower quadrant pain; F17.290 Nicotine dependence, other tobacco product, uncomplicated; Z90.49 Acquired absence of other specified parts of digestive tract
CPT/HCPCS: 36415; 80053; 83690; 96361; 96374; 96375; 99285; 74177; 81003; 81015; 83735; 84703; 85025; 99284; J0780; J2270; J3490

== ENCOUNTER 2023-12-16 04:50 | Outpatient (CLI) | payer MEDICAID, SELFPAY ==
[2023-12-16 14:52] LABS: Abs Immature Grans 0.02 10^3/uL (0.0-0.06); Absolute Basophil Count 0.02 10^3/uL (0.0-0.2); Absolute Eosinophil Count 0.09 10^3/uL (0.0-0.7); Absolute Lymphocyte Count 2.44 10^3/uL (1.2-3.4); Absolute Monocyte Count 0.46 10^3/uL (0.1-0.8); Basophils % 0.2; HCT 37.8 % (36.0-46.0); HGB 12.4 g/dL (11.2-15.7); Immature Grans % 0.2; Lymphocytes % 26.4; MCH 28.5 pg (27.0-33.0); MCHC 32.8 % (32.0-36.0); MCV 87 fL (80-95); MPV 8.8 fL (8.0-11.0); Neutrophils % 67.2; Platelet Count 264 10^3/uL (130-400); RBC 4.35 10^6/uL (3.93-5.22); RDW 13.9 % (11.7-14.6); RDW-SD 44.9 fL; WBC 9.23 10^3/uL (4.4-10.8)
[2023-12-16 14:58] LABS: ESR 9 mm/hr (0-20)
[2023-12-16 15:12] LABS: C-Reactive Protein 1.42 mg/dL (<or=0.5)
[2023-12-17 09:22] LABS: Cyclic Citrullinated Peptide <2.5 U/mL (<5.0)
[2023-12-17 10:18] LABS: Lyme Ab w Rflx to Lyme Confirm Negative (Negative)
[2023-12-17 14:57] LABS: ANA Interpretation Negative (Negative)
[2023-12-19 16:37] LABS: Anaplasma phagocytophilum Negative (Negative); B. miyamotoi PCR Negative (Negative); Babesia divergens/MO-1 Negative (Negative); Babesia duncani Negative (Negative); Babesia microti Negative (Negative); Ehrlichia chaffeensis Negative (Negative); Ehrlichia ewingii/canis Negative (Negative); Ehrlichia muris eauclairensis Negative (Negative)
== END 2023-12-16 04:51 | disposition home or self-care (01) ==
LOC: LBO 04:50
PROVIDERS: PCP Nurse Practitioner Family; Visit Provider Nurse Practitioner Family
DX: M25.59 Pain in other specified joint (principal)
CPT/HCPCS: 36415; 85652; 86200; 87798; 85025; 86038; 86140; 86618

== ENCOUNTER 2023-12-19 08:58 | Emergency (ER) | payer MEDICAID, SELFPAY ==
[2023-12-19 09:01] VITALS: BP 124/72; PULSE 86; RESP 14; TEMP 36.6; O2SAT 97
--- NOTE | 2023-12-19 09:07 | ED.GENADUL_ITS ---
Discharge Plan Disposition Patient Disposition: Home Condition: Stable Discharge Details Clinical Impression: Chronic back pain Primary Care Provider: Timmy Bolton ED Provider: Mariusz Ortega Home Meds and New Rx's Prescriptions: New cyclobenzaprine 10 mg tablet 10 mg PO TID PRN (Reason: back spasm) Qty: 30 0RF prednisone 20 mg tablet 40 mg PO DAILY 6 Days Qty: 12 0RF Continued gabapentin 300 mg capsule 300 mg PO TID fluoxetine 10 mg capsule 10 mg PO QAM Qty: 90 4RF levonorgestrel-ethinyl estrad [Vienva] 0.1-20 mg-mcg tablet 1 tab PO DAILY Qty: 84 4RF Discharge Instructions Instructions: Prednisone (By mouth), Cyclobenzaprine (By mouth), Low Back Strain (ED) Additional Instructions: You were seen in the emergency department for your chronic low back pain. When your back is out of place you need to adopt a more aggressive pain relief regimen, please use therapeutic dosing of Tylenol (acetamenophen) & Advil (ibuprofen) in an alternating fashion as follows: Take 1000mg of Tylenol every 6 hours without missing doses- that is 4 times per day. [place] in between the Tylenol dosings, take 400-600mg of Advil also on a 6 hour schedule, that is also 4 times per day. The daily maximum dosing of Tylenol is 4000mg, and the daily maximum dosing of Advil is 2400mg. This is safe to do for weeks. Please note that some common cold medications & prescription pain medications may contain acetamenophen and you need to read OTC drug labels and factor that in to maximum daily dosings. Please take the prescribed muscle relaxer cyclobenzaprine 3 times per day as needed, start the prescription prednisone tomorrow as we gave you a dose today here in the ED. Apply heat and ice to the area as well as an [id number]-[id number] lidocaine patch to the area of pain for 12 hours each day. Please follow-up with your specialist visit. Please return to the ED at once for any numbness and tingling or inability to use your legs, any problems urinating or defecating or numbness in the groin. Stand Alone Forms: Work Release Referrals: Timmy Bolton, A[facility]AN [Primary Care Provider] - HPI General Date/Time Provider Initiated Documentation: 12/19/23 09:00 . HPI Narrative: 23 year-old female presents to ED today by POV/ambulating with a chief complaint of acute on chronic low back pain, three known herniated discs, with onset of pain after slipping in the mud days ago without a fall. Quality described as diffuse lumbar back pain, occasional radiating to thighs, no radiation to urinary retention, bowel incontinence, groin numbness, inability to walk normally, upper back pain, trauma. Severity is described as moderate to severe. Palliating factors include took 2 gabapentin only this morning. Provoking factors include nothing specific. Events leading up to the incident/Associated Symptoms: Patient has appointment with [facility] for injection in January. Patient not anticoagulated. Related Data Home Medications Medication Instructions Recorded Confirmed levonorgestrel-ethinyl estradiol 1 tab PO DAILY #84 tabs 04/18/23 12/19/23 0.1 mg-20 mcg tablet (Vienva) fluoxetine 10 mg capsule 10 mg PO QAM #90 caps 05/21/23 12/19/23 gabapentin 300 mg capsule 300 mg PO TID 11/05/23 12/19/23 cyclobenzaprine 10 mg tablet 10 mg PO TID PRN back spasm #30 12/19/23 tabs prednisone 20 mg tablet 40 mg (2 x 20 mg) PO DAILY back 12/19/23 pain 6 days #12 tabs Previous Rx's Medication Instructions Recorded levonorgestrel-ethinyl estradiol 1 tab PO DAILY #84 tabs 04/18/23 0.1 mg-20 mcg tablet (Vienva) fluoxetine 10 mg capsule 10 mg PO QAM #90 caps 05/21/23 cyclobenzaprine 10 mg tablet 10 mg PO TID PRN back spasm #30 12/19/23 tabs prednisone 20 mg tablet 40 mg (2 x 20 mg) PO DAILY back 12/19/23 pain 6 days #12 tabs Allergies Allergy/AdvReac Type Severity Reaction Status Date / Time No Known Allergies Allergy Verified 12/19/23 09:07 General Stated Complaint: Nk/Back Pain PILLO: 4 Review of Systems All systems reviewed & are unremarkable except as noted in HPI and below Exam Narrative Exam Narrative: GENERAL APPEARANCE: Well-nourished, non-toxic, awake and alert, atraumatic, no acute distress. SKIN: Warm, pink, dry, intact, without rashes/lesions/ulcerations. HEAD: Normocephalic, atraumatic, normal hair distribution for gender/age. EYES: Pupils PERRLA, EOMs intact without nystagmus, normal conjunctiva, no exudates on lids/lashes. ENT: Nares patent, no circumoral cyanosis, no facial swelling NECK: Supple, trachea midline, painless cervical ROM. LUNGS/CHEST: Non-labored respirations, normal A/P diameter, symmetrical expansion, no chest wall deformity HEART (CV/PV): No peripheral edema, no JVD. ABDOMEN: Soft, non-distended, no guarding. MSK: Normal ROM, no swelling/deformity to bilateral UEs or LEs, moving all extremities without weakness, no cyanosis, spine midline without tenderness, normal curvature, diffuse lumbar tenderness without crepitus or step-offs, ambulating normally, no saddle anesthesia, strength 5/5 in bilat LEs NEURO: Mental Status AAOx4 - alert to person, place, time, events No facial droop, no forehead involvement. Motor: No focal weakness - strength 5/5 in bilateral UEs and LEs, proximal and distal, symmetric. Sensory: sensation intact to light touch globally. Gait normal: patient ambulated without ataxia into ED room. PSYCH: euthymic, cooperative, pleasant, appropriate speech Course Vital Signs Vital signs: Vital Signs Temperature 36.6 C 12/19/23 09:01 Pulse 86 12/19/23 09:01 Respiratory Rate 14 12/19/23 09:01 Blood Pressure 124/72 12/19/23 09:01 Pulse Oximetry 97 12/19/23 09:01 Temperature 36.6 C 12/19/23 09:01 Temperature Source Oral 12/19/23 09:01 Pulse 86 12/19/23 09:01 Respiratory Rate 14 12/19/23 09:01 Respiratory Effort Normal, Non-Labored 12/19/23 09:05 Blood Pressure 124/72 12/19/23 09:01 Blood Pressure Position Sitting 12/19/23 09:01 Pulse Oximetry 97 12/19/23 09:01 Oxygen Delivery Method Room Air 12/19/23 09:01 Oxygen Flow Rate 0 12/19/23 09:01 Pain Level 8 12/19/23 09:01 Medical Decision Making This dictation utilizes [id number] dictation software and may contain unedited grammatical errors. 23 y/o F presents to ED today with a chief complaint of acute on chronic low back pain, has 3 known herniated disks, no trauma, taking only subtherapeutic gabapentin for acute issue. Patient has appointment for follow-up for spine inje ction in January. Patients' medical history: herniated disks. 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 Pertinent exam findings / vital signs include diffuse lumbar tenderness without crepitus or step-off, ambulating normally, neurovascularly intact in bilateral lower extremities. Differential / pathologies of concern include lumbar strain/sprain, muscle spasm, sciatica. Diagnostic studies of: -None. Interventions of: -Outpatient prescription for cyclobenzaprine and prednisone as well as counseled on OTC medications. ED Course/Assessment/Plan: 23-year-old female presents for acute on chronic lumbar back pain, states that her job is causing significant pain, I counseled her on therapeutic dosing of APAP and NSAIDs, provided cyclobenzaprine by prescription, encouraged [id number] lidocaine patching, prescription prednisone burst for anti- inflammatory effect, counseled on alternating heat and ice performing exercises for low back pain which she is well familiar with due to 10 weeks of physical therapy for this issue in the past, counseled on strict return criteria for any neurologic abnormalities of the lower extremities or signs of cauda equina. Findings not consistent with cauda equina, neurovascular compromise. Disposition of chronic back pain. Patient verbalized understanding of the plan and return to ED criteria and engaged in shared decision making. Medical Records Medical records reviewed: Yes I reviewed the patient's medical records. Quality:[facility] Health Related Social Needs: No Data to Display PFSH All Active Problems (Updated 12/19/23 @ 09:31 by SHAUN Rodriguez) Chronic back pain (Acute) Arthralgia (Acute) Nausea vomiting and diarrhea (Acute) Lumbar disc herniation with radiculopathy (Acute) Lower back pain (Chronic) Eczema (Acute) Encounter for counseling regarding contraception (Acute) Class 3 obesity (Acute) Vaginal discomfort (Acute) NAFLD (nonalcoholic fatty liver disease) (Acute) FIGUEROA Chronic GERD (Chronic) Biliary dyskinesia (Acute) BMI 40.0-44.9, adult (Acute) Generalized anxiety disorder (Acute) Oral contraceptive use (Acute) Pelvic pain (Acute) Medical History History of anal fissures Cough Postprandial RUQ pain Rhinosinusitis URI (upper respiratory infection) History of hemorrhoids Bright red rectal bleeding Depressed Rash Humerus lesion, right Tendonitis of long head of biceps brachii of right shoulder Tonsillitis Left foot pain Smoker (09/23/17) Increased body mass index (BMI) (10/23/17) Surgical History History of laparoscopic cholecystectomy (~03/18/23) No significant past surgical history Family History Mother Asthma Father Alcohol abuse Essential hypertension Diabetes Paternal Grandfather Parkinson disease Paternal Grandmother Essential hypertension Asthma Social History Smoking/Tobacco Use Status: Current every day Tobacco Type: e-cigarettes Tobacco: How many years used: 4 Quit status: considering quitting Second Hand Exposure: Yes Counseling given: counseling >3 minutes Smoking risk assessment performed?: Yes Alcohol Intake: current Alcohol Intake frequency: a few times a week Alcohol type: beer Drug use: Rarely Substance use type: marijuana Details: edible Caregiver/Support person: No Household members: family Housing: house Pets and animals: Yes Pets and animals: dog(s), horse(s), turtle(s) and farm animals Sexually active: No Do you think of yourself as: straight/heterosexual Current gender identity: female What is your relationship status?: never How often do you talk on the phone with friends or family?: three or more times per week How often do you get together with friends or relatives?: three or more times per week How often do you attend baptist or adventism services?: 4 or more times per year Do you belong to any clubs or organized social groups?: no Panel score (0-1 are the most socially isolated patients): 2 What type of physical activity do you participate in: walking and other 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 Date GA/Weeks # Preg Succ Route Wgt Sex Labor Lgth Anesth esia Location [facility] 07/29/21 4 Delivery Date: 07/29/21 Last Updated by: Tamiko Beach MD Medical [facility] at [facility] Have you Been Recently Intoxicated or Drunk Within the Last 30 days?: No Have you Ever Experienced Previous Episodes of Alcohol Withdrawal?: No Have you ever Experienced Withdrawal Seizures?: No Have you ever Experienced Delirium Tremens(DT)s?: No Have you ever undergone Alcohol Rehabilitation Treatment (i.e, inpt ot outpatient treatment programs)?: No Have you ever Experienced Blackouts?: No Have you ever Combined Alcohol with other Downers within the last 90 days?: No Have you ever Combined Alcohol with any other Substance of Abuse during the last 90 days?: No Positive Blood Alcohol level on Presentation? [PCS.BAL]: No Evidence of Increased Autonomic Activity (i.e. HR>120, tremor, sweating, agitation, nausea)?: No Result: 0
[2023-12-19] MEDS: Acetaminophen 500 MG TAB 1000 MG PO (09:41)
[2023-12-19] MEDS: predniSONE 20 MG TAB 60 MG PO (09:42)
[2023-12-19] MEDS: Lidocaine 5% Patch 1 PATCH TP (09:43)
[2023-12-19] MEDS: Ketorolac 30 MG/ML VIAL 60 MG IM (09:51)
== END 2023-12-19 09:57 | disposition home or self-care (01) ==
PROVIDERS: Emergency Provider Physician Assistant; PCP Nurse Practitioner Family
DX: M54.9 Dorsalgia, unspecified (principal); G89.29 Other chronic pain
CPT/HCPCS: 96374; 99284; J1885; J7512

== ENCOUNTER 2024-01-08 13:08 | Outpatient (CLI) | payer MEDICAID, SELFPAY ==
--- NOTE | 2024-01-08 06:00 | DI.RAD_ITS ---
Exam(s) XR PAIN CLINIC LUMBAR SP 2V EXAM: XR PAIN CLINIC LUMBAR SP 2V CLINICAL HISTORY: DX: Lumbar radiculopathy. TECHNIQUE: Fluoroscopy was provided for the referring physician for guidance with performing pain cl inic injection procedure. COMPARISON: No exams were available for comparison FINDINGS: Please see procedure note for details. Fluoro time: 27.5 seconds RADIATION DOSE DELIVERED: Ka,r=17.65 mGy
[2024-01-08 13:08] VITALS: BP 144/82; PULSE 86; RESP 20; TEMP 36.6; O2SAT 99
--- NOTE | 2024-01-08 13:48 | PDOC.PAIN_ITS ---
Date of service: 01/08/24 Time of Service: 13:48 Pain Managment Procedure Note Procedure Note Procedure Note: PROCEDURE NOTE LUMBAR EPIDURAL STEROID INJECTION Date of Service: January 08, 2024 Patient:Yadira Amezquita? Provider: Toni Valdivia DO, MPH Yadira Adams has been referred to the [facility] for a lumbar epidural steroid injection. Pre-operative diagnosis: Lumbosacral Radiculopathy Post-operative diagnosis: Same Pre-Procedure Pain: VAS= 8 /10 Comments: I previously evaluated her in the office and her symptoms are unchanged. She has low back pain radiating down the left leg and has a herniated disc at L5-S1. Yadria was interviewed and the medical record was reviewed.? There were no medical, pharmacologic, radiographic or other structural contraindications to attempting fluoroscopically guided Lumbar epidural steroid injection.? Risks, potential side effects, indications, and potential benefits of the procedure were reviewed with Yadira.? Questions and concerns were addressed.? After it was clear that Yadira was fully informed about the procedure, the printed consent form was signed by the patient and myself.? Yadira was placed in the prone position on the fluoroscopy table and automated blood pressure cuff and pulse oximeter applied. The skin entry point for entering/approaching the epidural space for the lumbar epidural steroid injection was marked. Following thorough chlorhexadine preparation of the skin and draping and 1% lidocaine infiltration of the skin entry point and subcutaneous tissues, an 18 gauge Touhy needle was placed and advanced under fluoroscopic guidance and with loss of resistance technique into the L5-S1 epidural space. Needle tip placement and depth were aided and confirmed by fluoroscopy. There was no paresthesia or return of blood or CSF through the needle. 1 mls of Omnipaque 240 was injected with clear epidural spread confirmed with fluoroscopy. 80 mg of Depo-Medrol was? injected. This was followed by 1 ml of preservative-free normal saline to flush the steroid out of the needle. There was no unusual discomfort expressed by Yadira. The needle was withdrawn without difficulty. (49 mls of Omnipaque was wasted) Yadira was observed and was without hemodynamic, neurologic, or allergic reactions.? Fluoroscopic images were digitally archived. Yadira's vital signs were stable throughout the procedure and were as recorded in nursing records. Follow up plans and appointments were discussed with Yadira. Post procedure instruction was given as documented in nursing records and having met discharge criteria Yadira was discharged from the [facility]. COMMENTS: No apparent complications. Post-procedure pain: VAS= 0/10. Yadira to contact [facility] as needed. If at least 50% improvement in pain and/or function for at least 3 months is achieved, this procedure can be repeated. I personally performed this entire procedure. TONI VALDIVIA DO, MPH ABPMR-subspecialty board certification in Pain Medicine [facility]
[2024-01-08 13:53] VITALS: BP 138/99; PULSE 77; RESP 19; O2SAT 98
[2024-01-08] MEDS: Omnipaque 240 MG/ML 50 ML BTL IJ (13:54)
[2024-01-08] MEDS: Epidural Tray 1 EACH MC (13:54)
[2024-01-08] MEDS: methylPREDNISolone ACETATE 80 MG/ML VIAL IJ (13:55)
== END 2024-01-08 13:09 | disposition home or self-care (01) ==
LOC: PC 13:08
PROVIDERS: PCP Nurse Practitioner Family; Visit Provider Preventive Medicine Occupational Medicine
DX: M54.17 Radiculopathy, lumbosacral region (principal)
CPT/HCPCS: 62323; 72100; J1010; Q9967

== ENCOUNTER 2024-02-18 15:36 | Emergency (ER) | payer MEDICAID, SELFPAY ==
--- NOTE | 2024-02-18 15:30 | RT.EKG_ITS ---
APPROVED REPORT Exam: Resting ECG Reason for Exam: chest pain Patient Location: E HR:86 bpm ECG Measurements Heart Rate 86 AXIS WI 147 P 49 QRSd 89 QRS -6 QT 360 T 6 QTc 430 Conclusion Sinus rhythm...normal P axis, V-rate 60- 99 Narrow complex normal sinus rhythm at a rate of 86. Normal axis. Intervals within normal limits. N o ST segment abnormalities. T wave inversion in lead III. No acute injury pattern. Compared to siri or dated last year T wave inversion lead III is persistent.
[2024-02-18 15:38] VITALS: BP 145/79; PULSE 80; RESP 18; TEMP 36.8; O2SAT 97
--- NOTE | 2024-02-18 15:59 | ED.GENADUL_ITS ---
Discharge Plan Disposition Patient Disposition: Home Discharge Details Clinical Impression: Chest pain, unspecified Primary Care Provider: Timmy Bolton ED Provider: Mateusz Pulido Home Meds and New Rx's Prescriptions: Continued amitriptyline 50 mg tablet 50 mg PO QHS Qty: 90 0RF meloxicam 15 mg tablet 15 mg PO DAILY Qty: 14 0RF levonorgestrel-ethinyl estrad [Vienva] 0.1-20 mg-mcg tablet 1 tab PO DAILY Qty: 84 4RF gabapentin 300 mg capsule 300 mg PO TID Qty: 90 5RF albuterol sulfate 90 mcg/actuation HFA aerosol inhaler 2 inh inhalation Q6H PRN (Reason: shortness of breath or wheezing) Qty: 18 1RF (DME) BreatheRite MDI Spacer Spacer See Rx Instructions .ROUTE .MEDSUPPLY Qty: 1 0RF Rx Instructions: As directed Discharge Instructions Additional Instructions: You are seen in the emergency department for your chest pain. Your blood work showed no sign of any damage to her heart. Please return to the emergency department if you develop any sweating with your pain or if your pain travels to her jaw. Please otherwise follow-up with your primary care provider next week. For your pain please take medications as follows: 1. Take acetaminophen (Tylenol), 1,000 mg (two 500 mg tabs) every 6 hours [2. Take ibuprofen (Advil), 400 mg every 6 hours.] Discharge Data Discharge Date/Time-TO BE ENTERED AT DEPARTURE: 02/18/24 17:25 HPI General Date/Time Provider Initiated Documentation: 02/18/24 15:59 . HPI Narrative: MDM This is an overall very well-appearing normothermic and not tachycardic 24-year-old female with reproducible chest pain reassuring against ACS given nonischemic ECG. Patient does have an elevated BMI so as a result I obtained a troponin which was fortunately negative. Given her elevated BMI I did obtain a lipase which was fortunately reassuring against pancreatitis. Patient most likely suffered a musculoskeletal strain from pulling weeds. She has no history of DVTs or PE. She is on oral contraceptive pills but is neither tachycardic nor hypoxic and given her absence of shortness of breath I did not send a D- dimer as my suspicion for PE was low. She has not been vomiting to suggest increased risk for esophageal rupture. No tearing quality to suggest aortic dissection. Given her recent URI symptoms I considered myocarditis however she has not had any positional component to her pain and had a negative troponin. No rash to chest to suggest zoster. Given reproducible chest pain and no trauma to the chest I did not feel that the patient required cross-sectional imaging of her chest as I was not suspicious for sternal fracture. Her ECG did not show signs of pericarditis. She has no family history of premature coronary artery disease. I advised ED return for worsening pain syncope pain that radiates to her jaw or any diaphoresis. Patient understood her return indications and was discharged with empiric trial of expectant outpatient management. 5:13 PM Negative troponin. Reassuring normal lipase. CBC with no anemia or thrombocytopenia nor leukocytosis. Basic metabolic panel with mildly elevated creatinine similar to prior. No LOUISE. No acute electrolyte abnormalities. Negative hCG. Chronic conditions affecting the care of the patient: N/A History obtained from an outside historian: N/A External record review: N/A Diagnostic interpretations performed by me: Per my independent interpretation chest x-ray shows: No acute cardiopulmonary process Per my independent interpretation EKG shows: Narrow complex normal sinus rhythm at a rate of 86. Normal axis. Intervals within normal limits. No ST segment abnormalities. T wave inversion in lead III. No acute injury pattern. Compared to prior dated last year T wave inversion lead III is persistent. ]Medications: Acetaminophen ibuprofen Social determinants of health affecting disposition: N/A Management discussed with: N/A Treatment/interventions considered: N/A Response to therapies provided: N/A HPI This is a 24-year-old female arrived to the emergency department via private vehicle in the setting of chest pain. Patient reports that she had URI symptoms last week. These improved. She was gardening yesterday and exerted herself more than usual by pulling some weeds out. Subsequently she developed a pain between her breasts that is worse when moving or taking a deep breath then. No history of syncope. She has had heartburn and took some Tums without any relief. She is on oral contraceptive pills. She said that she has never had a PE nor DVT. Her pain is intermittent. It does not radiate. She has had no fevers. She denies shortness of breath. No family history of premature coronary artery disease. No rash to her chest. She is a daily tobacco user and occasionally uses marijuana. Denies routine ethanol. Exam General: Well-appearing in no acute distress speaking in complete sentences. Head: Normocephalic, atraumatic. Eye: Extraocular eye movements intact. No conjunctival injection. No scleral icterus. Ear, nose, mouth, throat: Grossly normal inspection. Normal voice, handling secretions normally. Neck: Trachea midline. Cardiovascular: Well-perfused distal extremities. Regular rate and rhythm. Chest wall: With patient's nurse Sharon I completed an external chest wall exam. No flail segments. No rash to chest. Mild reproducible chest pain with sternal palpation. Respiratory: Nonlabored respiration. Clear lungs bilaterally Gastrointestinal: Nondistended abdomen. Soft nontender. Musculoskeletal: No edema. Moving all 4 extremities spontaneously. Skin: Normal for age and race, grossly normal temperature and turgor. No acute rash. Neurologic: Alert and appropriate, no apparent acute deficits. Psychiatric: Mood and manner are appropriate. Grooming and personal hygiene are appropriate. Related Data Home Medications Medication Instructions Recorded Confirmed levonorgestrel-ethinyl estradiol 1 tab PO DAILY #84 tabs 04/18/23 02/09/24 0.1 mg-20 mcg tablet (Vienva) gabapentin 300 mg capsule 300 mg PO TID #90 caps 12/26/23 02/09/24 amitriptyline 50 mg tablet 50 mg PO QHS #90 tabs 01/01/24 02/09/24 meloxicam 15 mg tablet 15 mg PO DAILY #14 tabs 01/01/24 02/09/24 albuterol sulfate 90 mcg/actuation 2 inh inhalation Q6H PRN shortness 02/11/24 aerosol inhaler of breath or wheezing #18 grams inhalational spacing device #1 ea 02/11/24 (BreatheRite MDI Spacer) Previous Rx's Medication Instructions Recorded levonorgestrel-ethinyl estradiol 1 tab PO DAILY #84 tabs 04/18/23 0.1 mg-20 mcg tablet (Vienva) gabapentin 300 mg capsule 300 mg PO TID #90 caps 12/26/23 amitriptyline 50 mg tablet 50 mg PO QHS #90 tabs 01/01/24 meloxicam 15 mg tablet 15 mg PO DAILY #14 tabs 01/01/24 albuterol sulfate 90 mcg/actuation 2 inh inhalation Q6H PRN shortness 02/11/24 aerosol inhaler of breath or wheezing #18 grams inhalational spacing device #1 ea 02/11/24 (BreatheRite MDI Spacer) Allergies Allergy/AdvReac Type Severity Reaction Status Date / Time No Known Allergies Allergy Verified 02/20/24 13:40 General Stated Complaint: Chest Pain PILLO: 2 Course Vital Signs Vital signs: Vital Signs Temperature 36.8 C 02/18/24 15:38 Pulse 80 02/18/24 15:38 Respiratory Rate 18 02/18/24 15:38 Blood Pressure 145/79 H 02/18/24 15:38 Pulse Oximetry 97 02/18/24 15:38 Temperature 36.8 C 02/18/24 15:38 Temperature Source Skin 02/18/24 15:38 Pulse 80 02/18/24 15:38 Respiratory Rate 18 02/18/24 15:38 Blood Pressure 145/79 H 02/18/24 15:38 Blood Pressure Position Sitting 02/18/24 15:38 Pulse Oximetry 97 02/18/24 15:38 Oxygen Delivery Method Room Air 02/18/24 15:38 Oxygen Flow Rate 0 02/18/24 15:38 Pain Level 4 02/18/24 15:38 Medical Decision Making Quality:SDOH Health Related Social Needs: No Data to Display PFSH All Active Problems (Updated 02/18/24 @ 17:16 by Mateusz Pulido MD) Chest pain, unspecified (Acute) Lumbar disc herniation with radiculopathy (Acute) Eczema (Acute) Class 3 obesity (Acute) Vaginal discomfort (Acute) NAFLD (nonalcoholic fatty liver disease) (Acute) FIGUEROA Chronic GERD (Chronic) Biliary dyskinesia (Acute) BMI 40.0-44.9, adult (Acute) Generalized anxiety disorder (Acute) Oral contraceptive use (Acute) Pelvic pain (Acute) Medical History (Updated 02/18/24 @ 17:16 by Mateusz Pulido MD) Arthralgia Encounter for counseling regarding contraception Lower back pain History of anal fissures Cough Postprandial RUQ pain Rhinosinusitis URI (upper respiratory infection) History of hemorrhoids Bright red rectal bleeding Depressed Rash Humerus lesion, right Tendonitis of long head of biceps brachii of right shoulder Tonsillitis Left foot pain Smoker (09/23/17) Increased body mass index (BMI) (10/23/17) Surgical History History of laparoscopic cholecystectomy (~03/18/23) No significant past surgical history Family History Mother Asthma Father Alcohol abuse Essential hypertension Diabetes Paternal Grandfather Parkinson disease Paternal Grandmother Essential hypertension Asthma Social History Smoking/Tobacco Use Status: Current every day Tobacco Type: e-cigarettes Tobacco: How many years used: 4 Quit status: considering quitting Second Hand Exposure: Yes Counseling given: counseling >3 minutes Smoking risk assessment performed?: Yes Alcohol Intake: current Alcohol Intake frequency: a few times a week Alcohol type: beer Drug use: Rarely Substance use type: marijuana Details: edible Caregiver/Support person: No Household members: family Housing: house Pets and animals: Yes Pets and animals: dog(s), horse(s), turtle(s) and farm animals Sexually active: No Do you think of yourself as: straight/heterosexual Current gender identity: female What is your relationship status?: never How often do you talk on the phone with friends or family?: three or more times per week How often do you get together with friends or relatives?: three or more times per week How often do you attend voodoo or scientologist services?: 4 or more times per year Do you belong to any clubs or organized social groups?: no Panel score (0-1 are the most socially isolated patients): 2 What type of physical activity do you participate in: walking and other 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 Date GA/Weeks # Preg Succ Route Wgt Sex Labor Lgth Anesth esia Location Prov Complic 07/29/21 4 Delivery Date: 07/29/21 Last Updated by: Tamiko Beach MD [facility]
--- NOTE | 2024-02-18 16:00 | DI.RAD_ITS ---
Exam(s) XR CHEST 2V PA LATERAL EXAM: XR CHEST 2V PA LATERAL CLINICAL HISTORY: CP TECHNIQUE: 2D digital imaging was performed of the chest. Two images were obtained. PA and lateral views were obtained. COMPARISON: CR XR CHEST 2V PA LATERAL from 05/13/2023 FINDINGS: MEDIASTINUM: Normal. HEART: Normal. PULMONARY VASCULATURE: Normal. LUNGS: Clear. PLEURAL SPACE: No pleural effusion or pneumothorax. BONE:Within normal limits for the patient's age. OTHER FINDINGS:Normal. IMPRESSION: No acute pulmonary findings. DATA REPOSITORY: RADIATION DOSE DELIVERED:
[2024-02-18 16:04] VITALS: PULSE 96
[2024-02-18 16:37] VITALS: PULSE 81; O2SAT 99
[2024-02-18 16:43] LABS: Abs Immature Grans 0.04 10^3/uL (0.0-0.06); Absolute Basophil Count 0.03 10^3/uL (0.0-0.2); Absolute Eosinophil Count 0.08 10^3/uL (0.0-0.7); Absolute Lymphocyte Count 3.21 10^3/uL (1.2-3.4); Absolute Monocyte Count 0.68 10^3/uL (0.1-0.8); Basophils % 0.3 %; Eosinophils % 0.7 %; HCT 39.3 % (36.0-46.0); HGB 12.7 g/dL (11.2-15.7); Immature Grans % 0.4 %; Lymphocytes % 29.9 %; MCH 29.1 pg (27.0-33.0); MCHC 32.3 % (32.0-36.0); MCV 90 fL (80-95); MPV 9.1 fL (8.0-11.0); Monocytes % 6.3 %; Neutrophils % 62.4 %; Platelet Count 284 10^3/uL (130-400); RBC 4.37 10^6/uL (3.93-5.22); RDW 14.2 % (11.7-14.6); RDW-SD 46.5 fL; WBC 10.74 10^3/uL (4.4-10.8)
[2024-02-18 17:02] LABS: BUN 13 mg/dL (7-18); CREATININE 1.1 mg/dL (0.55-1.02); Calcium 10.2 mg/dL (8.5-10.1); Chloride 103 mmol/L (98-107); Estimated GFR 71.96 (mL/min/1.73m2); Glucose 86 mg/dL (74-106); Lipase 49 U/L (16-77); Potassium 3.6 mmol/L (3.5-5.1); Sodium 141 mmol/L (136-145); Troponin I < 50 ng/L (< or =60)
[2024-02-18 17:03] VITALS: RESP 15
[2024-02-18 17:03] LABS: HCG Qual (Serum) Negative
[2024-02-18] MEDS: Acetaminophen 500 MG TAB 1000 MG PO (17:23)
[2024-02-18] MEDS: Ibuprofen 400 MG TAB PO (17:24)
== END 2024-02-18 17:25 | disposition home or self-care (01) ==
PROVIDERS: Emergency Provider Emergency Medicine; PCP Nurse Practitioner Family
DX: R07.9 Chest pain, unspecified (principal); Z79.3 Long term (current) use of hormonal contraceptives; E66.9 Obesity, unspecified; Z68.41 Body mass index [BMI] 40.0-44.9, adult; Z79.899 Other long term (current) drug therapy
CPT/HCPCS: 80048; 83690; 93005; 99285; 71046; 84484; 84703; 85025; 93010; 99284

== ENCOUNTER 2024-03-10 14:09 | Emergency (ER) | payer MEDICAID, SELFPAY ==
[2024-03-10 14:16] VITALS: BP 144/89; PULSE 90; RESP 16; TEMP 36.6; O2SAT 98
--- NOTE | 2024-03-10 14:45 | DI.RAD_ITS ---
Exam(s) XR CHEST 2V PA LATERAL EXAM: XR CHEST 2V PA LATERAL CLINICAL HISTORY: cough TECHNIQUE: 2D digital imaging was performed of the chest. Two images were obtained. PA and lateral views were obtained. COMPARISON: CR XR CHEST 2V PA LATERAL from 02/18/2024 FINDINGS: MEDIASTINUM: Normal. HEART: Normal. PULMONARY VASCULATURE: Normal. LUNGS: Clear. PLEURAL SPACE: No pleural effusion or pneumothorax. BONE:Within normal limits for the patient's age. OTHER FINDINGS:Normal. IMPRESSION: No acute pulmonary findings. DATA REPOSITORY: RADIATION DOSE DELIVERED:
--- NOTE | 2024-03-10 14:53 | ED.GENADUL_ITS ---
Discharge Plan Disposition Patient Disposition: Home Condition: Good Discharge Details Clinical Impression: URI (upper respiratory infection), Cough Primary Care Provider: Timmy Bolton ED Provider: Anum Funes Home Meds and New Rx's Prescriptions: New albuterol sulfate 90 mcg/actuation aerosol powdr breath activated 2 inh inhalation Q6H PRN (Reason: shortness of breath or wheezing) Qty: 1 0RF benzonatate 200 mg capsule 200 mg PO TID PRN (Reason: cough) Qty: 10 0RF Continued amitriptyline 50 mg tablet 50 mg PO QHS Qty: 90 0RF meloxicam 15 mg tablet 15 mg PO DAILY Qty: 14 0RF levonorgestrel-ethinyl estrad [Vienva] 0.1-20 mg-mcg tablet 1 tab PO DAILY Qty: 84 4RF gabapentin 300 mg capsule 300 mg PO TID Qty: 90 5RF albuterol sulfate 90 mcg/actuation HFA aerosol inhaler 2 inh inhalation Q6H PRN (Reason: shortness of breath or wheezing) Qty: 18 1RF (DME) BreatheRite MDI Spacer Spacer See Rx Instructions .ROUTE .MEDSUPPLY Qty: 1 0RF Rx Instructions: As directed Discharge Instructions Instructions: Cough, Adult ED Additional Instructions: Chest x-ray is reassuring here today. No evidence of pneumonia, no evidence of bronchitis on physical exam, your COVID testing was negative. Most likely viral illness. Please encourage hydration. Tylenol and ibuprofen as needed for discomfort. Please stop smoking. You may use the Tessalon Perles to help with cough as prescribed. If you have recurrent severe wheezing, you may use the albuterol inhaler as prescribed. Please follow-up with your primary care in the next 1 to 2 weeks. If you develop fever/chills, shortness of breath, difficulty breathing or other new/worsening symptom please seek care urgently once again. Referrals: Timmy Bolton, [facility] [Primary Care Provider] - [facility] General Date/Time Provider Initiated Documentation: 03/10/24 14:45 . Limitations to Documentation: no limitations . Information obtained by: patient and RN notes reviewed . History of Present Illness 24 year old F presents to the emergency department with the chief complaint of cough, described as moderate, and is localized to the chest ([id number] like she has sputum in upper chest). Patient reports no radiation. Patient started experiencing this week(s) (2) and it has been constant. No relieving factors improve symptom(s), Other factors that worsen symptoms (laying flat) . Patient notes cough and nausea/vomiting (can have nausea associated with forceful cough); denies chest pain, diaphoresis, fever/chills, loss of appetite, rash, shortness of breath and weakness. Patient did receive the following treatments prior to arrival, none Related Data Home Medications Medication Instructions Recorded Confirmed gabapentin 300 mg capsule 300 mg PO TID #90 caps 12/26/23 03/10/24 amitriptyline 50 mg tablet 50 mg PO QHS #90 tabs 01/01/24 03/10/24 meloxicam 15 mg tablet 15 mg PO DAILY #14 tabs 01/01/24 03/10/24 albuterol sulfate 90 mcg/actuation 2 inh inhalation Q6H PRN shortness 02/11/24 03/10/24 aerosol inhaler of breath or wheezing #18 grams inhalational spacing device #1 ea 02/11/24 03/10/24 (BreatheRite MDI Spacer) levonorgestrel-ethinyl estradiol 1 tab PO DAILY #84 tabs 03/08/24 03/10/24 0.1 mg-20 mcg tablet (Vienva) albuterol sulfate 90 mcg/actuation 2 inh inhalation Q6H PRN shortness 03/10/24 breath activated powder inhaler of breath or wheezing #1 ea benzonatate 200 mg capsule 200 mg PO TID PRN cough #10 caps 03/10/24 Previous Rx's Medication Instructions Recorded gabapentin 300 mg capsule 300 mg PO TID #90 caps 12/26/23 amitriptyline 50 mg tablet 50 mg PO QHS #90 tabs 01/01/24 meloxicam 15 mg tablet 15 mg PO DAILY #14 tabs 01/01/24 albuterol sulfate 90 mcg/actuation 2 inh inhalation Q6H PRN shortness 02/11/24 aerosol inhaler of breath or wheezing #18 grams inhalational spacing device #1 ea 02/11/24 (BreatheRite MDI Spacer) levonorgestrel-ethinyl estradiol 1 tab PO DAILY #84 tabs 03/08/24 0.1 mg-20 mcg tablet (Vienva) albuterol sulfate 90 mcg/actuation 2 inh inhalation Q6H PRN shortness 03/10/24 breath activated powder inhaler of breath or wheezing #1 ea benzonatate 200 mg capsule 200 mg PO TID PRN cough #10 caps 03/10/24 Allergies Allergy/AdvReac Type Severity Reaction Status Date / Time No Known Allergies Allergy Verified 03/10/24 14:15 General Stated Complaint: RespSymp PILLO: 4 Review of Systems Constitutional Constitutional: Reports as per HPI and Denies headache(s) Eyes Eyes: Reports as per HPI, Denies eye discharge and Denies irritation ENT Ears, Nose, Mouth, and Throat: Reports as per HPI and Denies headache(s) Cardiovascular Cardiovascular: Reports as per HPI, Denies chest pain and Denies dyspnea Respiratory Respiratory: Reports as per HPI and Denies dyspnea Gastrointestinal Gastrointestinal: Reports as per HPI, Denies abdominal pain, Denies change in bowel habits, Denies nausea and Denies vomiting Integumentary/Breasts Skin/Breast: Reports as per HPI and Denies rash Neurologic Neurologic: Reports as per HPI and Denies headache(s) Exam Const General: cooperative, healthy appearing, comfortable, no acute distress, well developed and well groomed Nutritional Appearance: overweight Orientation: alert and awake [facility] Head: normal to inspection, normocephalic and atraumatic Ears: hearing grossly normal bilaterally, external ears normal and TM's normal bilaterally General nose exam: external nose normal and nares normal Face and sinus: normal facial exam, sinuses nontender and face symmetric Mouth: oral mucosae normal, lip normal, tongue normal, oropharynx normal and moist mucous membranes Teeth and gingiva: dentition normal Throat: posterior oropharynx normal, tonsils normal and uvula midline Eyes General: appearance normal, both eyes and all related structures Neck Neck: normal visual inspection, full ROM and no lymphadenopathy Resp Effort & Inspection: normal respiratory effort, able to speak in complete sentences and no respiratory distress Auscultation: clear to auscultation bilaterally, no rales, no rhonchi and no wheezes Cardio Rate: regular rate Rhythm: regular rhythm Heart Sounds: S1 normal and S2 normal Skin General skin exam: no rashes or lesions noted Neuro General: patient alert and patient awake Cognition: normal cognition Speech: speech normal Gait: normal gait Course Vital Signs Vital signs: Vital Signs Temperature 36.6 C 03/10/24 14:16 Pulse 90 03/10/24 14:16 Respiratory Rate 16 03/10/24 14:16 Blood Pressure 144/89 H 03/10/24 14:16 Pulse Oximetry 98 03/10/24 14:16 Temperature 36.6 C 03/10/24 14:16 Temperature Source Temporal Artery Scan 03/10/24 14:16 Pulse 90 03/10/24 14:16 Respiratory Rate 16 03/10/24 14:16 Blood Pressure 144/89 H 03/10/24 14:16 Blood Pressure Position Sitting 03/10/24 14:16 Pulse Oximetry 98 03/10/24 14:16 Oxygen Delivery Method Room Air 03/10/24 14:16 Oxygen Flow Rate 0 03/10/24 14:16 Pain Level 0 03/10/24 14:16 Medical Decision Making Patient is a pleasaant 24 year old female, [facility] 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 She reports this began about 2 weeks ago. Continues to have cough, states it is worse at night. Needs a sleep any propped up position. She denies any fevers or chills. States started with hoarse voice, sore throat, congestion. States she was recently treated for sinus infection. Brings up foul tasting stuff during her cough. No SOB or CP. On exam, patient appears non-toxic. Hemodynamically stable. Lungs are clear. Normal HEENT exam. Likely viral illness, possible PND causing cough. Given length of illness, will obtain CXR, COVID testing and reevaluate. MEDIASTINUM: Normal. HEART: Normal. PULMONARY VASCULATURE: Normal. LUNGS: Clear. PLEURAL SPACE: No pleural effusion or pneumothorax. BONE:Within normal limits for the patient's age. OTHER FINDINGS:Normal. IMPRESSION: No acute pulmonary findings. Discussed these findings with the patient. Patient was negative for COVID. Advised likely viral illness. No wheezing was appreciated, no evidence to suggest bronchitis or pneumonia on exam. Encourage hydration and supportive care. Will prescribe a Tessalon Perles to help with cough and allow her to get some rest. We did discuss that this is still contagious bases despite it not being active pneumonia. She reports that she has used albuterol inhaler in the past with acute illness and has found this beneficial, will require refill as she did lose her inhaler. Return precautions were discussed. Advise follow-up with primary care in 1 to 2 weeks. We discussed expected course. All of her questions and concerns were addressed and she is in agreement this plan. Quality:SDOH Health Related Social Needs: No Data to Display PFSH All Active Problems (Updated 03/10/24 @ 15:29 by SHAUN Rose) Cough (Acute) URI (upper respiratory infection) (Acute) Lumbar disc herniation with radiculopathy (Acute) Eczema (Acute) Class 3 obesity (Acute) Vaginal discomfort (Acute) NAFLD (nonalcoholic fatty liver disease) (Acute) FIGUEROA Chronic GERD (Chronic) Biliary dyskinesia (Acute) BMI 40.0-44.9, adult (Acute) Generalized anxiety disorder (Acute) Oral contraceptive use (Acute) Pelvic pain (Acute) Medical History (Updated 03/10/24 @ 15:29 by SHAUN Rose) Chest pain, unspecified Arthralgia Encounter for counseling regarding contraception Lower back pain History of anal fissures Cough Postprandial RUQ pain Rhinosinusitis URI (upper respiratory infection) History of hemorrhoids Bright red rectal bleeding Depressed Rash Humerus lesion, right Tendonitis of long head of biceps brachii of right shoulder Tonsillitis Left foot pain Smoker (09/23/17) Increased body mass index (BMI) (10/23/17) Surgical History History of laparoscopic cholecystectomy (~03/18/23) No significant past surgical history Family History Mother Asthma Father Alcohol abuse Essential hypertension Diabetes Paternal Grandfather Parkinson disease Paternal Grandmother Essential hypertension Asthma Social History Smoking/Tobacco Use Status: Current every day Tobacco Type: e-cigarettes Tobacco: How many years used: 4 Quit status: considering quitting Second Hand Exposure: Yes Counseling given: counseling >3 minutes Smoking risk assessment performed?: Yes Alcohol Intake: current Alcohol Intake frequency: a few times a week Alcohol type: beer Drug use: Rarely Substance use type: marijuana Details: edible Caregiver/Support person: No Household members: family Housing: house Pets and animals: Yes Pets and animals: dog(s), horse(s), turtle(s) and farm animals Sexually active: No Do you think of yourself as: straight/heterosexual Current gender identity: female What is your relationship status?: never How often do you talk on the phone with friends or family?: three or more times per week How often do you get together with friends or relatives?: three or more times per week How often do you attend lutheran or religion services?: 4 or more times per year Do you belong to any clubs or organized social groups?: no Panel score (0-1 are the most socially isolated patients): 2 What type of physical activity do you participate in: walking and other 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 Date GA/Weeks # Preg Succ Route Wgt Sex Labor Lgth Anesth esia Location Prov Complic 07/29/21 4 Delivery Date: 07/29/21 Last Updated by: Tamiko Beach MD [facility]
== END 2024-03-10 15:40 | disposition home or self-care (01) ==
PROVIDERS: Emergency Provider Physician Assistant; PCP Nurse Practitioner Family
DX: R05.9 Cough, unspecified (principal); J06.9 Acute upper respiratory infection, unspecified; F32.A Depression, unspecified; F17.209 Nicotine dependence, unspecified, with unspecified nicotine-induced disorders
CPT/HCPCS: 87426; 99283; 71046

== ENCOUNTER 2024-03-17 07:26 | Emergency (ER) | payer MEDICAID, SELFPAY ==
[2024-03-17 07:28] VITALS: BP 125/82; PULSE 93; RESP 18; TEMP 36.4; O2SAT 99
--- NOTE | 2024-03-17 07:59 | ED.GENADUL_ITS ---
Discharge Plan Disposition Patient Disposition: Home Condition: Improving Discharge Details Clinical Impression: Lumbar back pain Primary Care Provider: Timmy Bolton ED Provider: Mack Álvarez Home Meds and New Rx's Prescriptions: New lidocaine [Lidoderm] 5 % adhesive patch,medicated 1 patch topical DAILY Qty: 15 0RF Rx Instructions: leave on most painful area for up to 12 hrs cyclobenzaprine 5 mg tablet 5 mg PO QHS PRN (Reason: muscle spasm) Qty: 7 0RF No Action amitriptyline 50 mg tablet 50 mg PO QHS Qty: 90 0RF meloxicam 15 mg tablet 15 mg PO DAILY Qty: 14 0RF levonorgestrel-ethinyl estrad [Vienva] 0.1-20 mg-mcg tablet 1 tab PO DAILY Qty: 84 4RF gabapentin 300 mg capsule 300 mg PO TID Qty: 90 5RF albuterol sulfate 90 mcg/actuation HFA aerosol inhaler 2 inh inhalation Q6H PRN (Reason: shortness of breath or wheezing) Qty: 18 1RF (DME) BreatheRite MDI Spacer Spacer See Rx Instructions .ROUTE .MEDSUPPLY Qty: 1 0RF Rx Instructions: As directed albuterol sulfate 90 mcg/actuation aerosol powdr breath activated 2 inh inhalation Q6H PRN (Reason: shortness of breath or wheezing) Qty: 1 0RF benzonatate 200 mg capsule 200 mg PO TID PRN (Reason: cough) Qty: 10 0RF Discharge Instructions Instructions: Low Back Pain ED Additional Instructions: Please follow-up with your spinal specialist team and primary care physician. Return to the emergency department for any worsening symptoms HPI General Date/Time Provider Initiated Documentation: 03/17/24 07:39 . HPI Narrative: 24-year-old female known disc herniations L3-L4-L5 recent spinal injection 01/07 presents with lower back discomfort and lumbar region radiating to buttock region and leg, no bowel or bladder issues, pain worse when standing straight some relief with sitting, denies falls denies numbness or weakness in legs, follows with spinal specialist at [place] Related Data Home Medications Medication Instructions Recorded Confirmed gabapentin 300 mg capsule 300 mg PO TID #90 caps 12/26/23 03/12/24 amitriptyline 50 mg tablet 50 mg PO QHS #90 tabs 01/01/24 03/12/24 meloxicam 15 mg tablet 15 mg PO DAILY #14 tabs 01/01/24 03/12/24 albuterol sulfate 90 mcg/actuation 2 inh inhalation Q6H PRN shortness 02/11/24 03/12/24 aerosol inhaler of breath or wheezing #18 grams inhalational spacing device #1 ea 02/11/24 03/12/24 (BreatheRite MDI Spacer) levonorgestrel-ethinyl estradiol 1 tab PO DAILY #84 tabs 03/08/24 03/12/24 0.1 mg-20 mcg tablet (Vienva) albuterol sulfate 90 mcg/actuation 2 inh inhalation Q6H PRN shortness 03/10/24 03/12/24 breath activated powder inhaler of breath or wheezing #1 ea benzonatate 200 mg capsule 200 mg PO TID PRN cough #10 caps 03/10/24 03/12/24 cyclobenzaprine 5 mg tablet 5 mg PO QHS PRN muscle spasm #7 03/17/24 tabs lidocaine 5 % topical patch 1 patch topical DAILY #15 ea 03/17/24 (Lidoderm) Previous Rx's Medication Instructions Recorded gabapentin 300 mg capsule 300 mg PO TID #90 caps 12/26/23 amitriptyline 50 mg tablet 50 mg PO QHS #90 tabs 01/01/24 meloxicam 15 mg tablet 15 mg PO DAILY #14 tabs 01/01/24 albuterol sulfate 90 mcg/actuation 2 inh inhalation Q6H PRN shortness 02/11/24 aerosol inhaler of breath or wheezing #18 grams inhalational spacing device #1 ea 02/11/24 (BreatheRite MDI Spacer) levonorgestrel-ethinyl estradiol 1 tab PO DAILY #84 tabs 03/08/24 0.1 mg-20 mcg tablet (Vienva) albuterol sulfate 90 mcg/actuation 2 inh inhalation Q6H PRN shortness 03/10/24 breath activated powder inhaler of breath or wheezing #1 ea benzonatate 200 mg capsule 200 mg PO TID PRN cough #10 caps 03/10/24 cyclobenzaprine 5 mg tablet 5 mg PO QHS PRN muscle spasm #7 03/17/24 tabs lidocaine 5 % topical patch 1 patch topical DAILY #15 ea 03/17/24 (Lidoderm) Allergies Allergy/AdvReac Type Severity Reaction Status Date / Time No Known Allergies Allergy Verified 03/17/24 07:31 General Stated Complaint: Nk/Back Pain PILLO: 3 Review of Systems Narrative: Review of Systems Constitutional: negative Eyes: negative ENT: negative Cardiovascular: negative Respiratory: negative Gastrointestinal: negative : negative Musculoskeletal: Back pain Skin: negative Neurologic: negative Psych: negative Exam Narrative Exam Narrative: Physical Examination General: alert, awake, cooperative, resting comfortably, no acute distress HEENT: normocephalic, atraumatic; PERRL, EOM intact, conjunctiva normal; no nasal discharge; moist mucous membranes, oral and pharyngeal mucosa normal, tolerating secretions Neck: supple, trachea midline; full ROM Chest: normal to inspection Respiratory: normal respiratory effort, speaking in full sentences, clear to auscultation, no wheezing, rales or rhonchi Cardiac: regular rate, regular rhythm, S1S2 intact, no murmurs rubs or gallops GI: abdomen soft, non-tender, non-distended; no palpable mass or hepatosplenomegaly Back: No midline spinal tenderness step-off crepitus or deformity Skin: no lesions, rashes or trauma appreciated Neuro: AAOx3, normal speech, moving all extremities; 5-5 strength upper and lower extremities bilaterally, sensation to light touch intact equally bilaterally, ambulatory without ataxia Extremities: No signs of trauma Psych: Appropriate mood and affect Course Vital Signs Vital signs: Vital Signs Temperature 36.4 C L 03/17/24 07:28 Pulse 93 H 03/17/24 07:28 Respiratory Rate 18 03/17/24 07:28 Blood Pressure 125/82 03/17/24 07:28 Pulse Oximetry 99 03/17/24 07:28 Temperature 36.4 C L 03/17/24 07:28 Pulse 93 H 03/17/24 07:28 Respiratory Rate 18 03/17/24 07:28 Blood Pressure 125/82 03/17/24 07:28 Blood Pressure Position Sitting 03/17/24 07:28 Pulse Oximetry 99 03/17/24 07:28 Oxygen Delivery Method Room Air 03/17/24 07:28 Oxygen Flow Rate 0 03/17/24 07:28 Pain Level 9 03/17/24 07:28 Medical Decision Making 24-year-old female known bulging disks L3-L4-L5 follows with spinal specialist at [place], spinal injection 01/07 presents with discomfort to lumbar back, pain with standing straight, no midline spinal tenderness afebrile nontoxic neurologically intact with full strength and sensation bilateral lower extremities no bowel or bladder issues, likely acute on chronic lumbar nerve impingement from bulging disc, lower suspicion for spinal epidural abscess spinal epidural hematoma or mass low suspicion for spinal fracture or cauda equina given history and physical, will provide analgesia anti-inflammatory muscle relaxant, will obtain urinalysis urine test given age, will have patient follow-up with her spinal specialist pending reassessment of sy mptoms after medication 9: 33 patient resting comfortably feeling better after meds, ambulatory. Patient to follow-up with spinal specialist. Given home care instructions and return precautions Quality:SDOH Health Related Social Needs: No Data to Display PFSH All Active Problems (Updated 03/17/24 @ 09:34 by Mack Álvarez MD) Lumbar back pain (Acute) Cough (Acute) URI (upper respiratory infection) (Acute) Lumbar disc herniation with radiculopathy (Acute) Eczema (Acute) Class 3 obesity (Acute) Vaginal discomfort (Acute) NAFLD (nonalcoholic fatty liver disease) (Chronic) FIGUEROA Chronic GERD (Chronic) Biliary dyskinesia (Acute) BMI 40.0-44.9, adult (Acute) Generalized anxiety disorder (Acute) Oral contraceptive use (Acute) Pelvic pain (Acute) Medical History (Updated 03/17/24 @ 09:34 by Mack Álvarez MD) Chest pain, unspecified Arthralgia Encounter for counseling regarding contraception Lower back pain History of anal fissures Cough Postprandial RUQ pain Rhinosinusitis URI (upper respiratory infection) History of hemorrhoids Bright red rectal bleeding Depressed Rash Humerus lesion, right Tendonitis of long head of biceps brachii of right shoulder Tonsillitis Left foot pain Smoker (09/23/17) Increased body mass index (BMI) (10/23/17) Surgical History History of laparoscopic cholecystectomy (~03/18/23) No significant past surgical history Family History Mother Asthma Father Alcohol abuse Essential hypertension Diabetes Paternal Grandfather Parkinson disease Paternal Grandmother Essential hypertension Asthma Social History Smoking/Tobacco Use Status: Current every day Tobacco Type: e-cigarettes Tobacco: How many years used: 4 Quit status: considering quitting Second Hand Exposure: Yes Counseling given: counseling >3 minutes Smoking risk assessment performed?: Yes Alcohol Intake: current Alcohol Intake frequency: a few times a week Alcohol type: beer Drug use: Rarely Substance use type: marijuana Details: edible Caregiver/Support person: No Household members: family Housing: house Pets and animals: Yes Pets and animals: dog(s), horse(s), turtle(s) and farm animals Sexually active: No Do you think of yourself as: straight/heterosexual Current gender identity: female What is your relationship status?: never How often do you talk on the phone with friends or family?: three or more times per week How often do you get together with friends or relatives?: three or more times per week How often do you attend moravian or anglican services?: 4 or more times per year Do you belong to any clubs or organized social groups?: no Panel score (0-1 are the most socially isolated patients): 2 What type of physical activity do you participate in: walking and other 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 Date GA/Weeks # Preg Succ Route Wgt Sex Labor Lgth Anesth esia Location Prov Complic 07/29/21 4 Delivery Date: 07/29/21 Last Updated by: Tamiko Beach MD [facility]
[2024-03-17] MEDS: Cyclobenzaprine 10 MG TAB PO (08:23)
[2024-03-17] MEDS: Dexamethasone 10 MG/ML VIAL PO (08:23)
[2024-03-17] MEDS: Ketorolac 15 MG/ML VIAL IM (08:23)
[2024-03-17] MEDS: Lidocaine 5% Patch 1 PATCH TP (08:24)
[2024-03-17 08:44] LABS: Bilirubin Negative (Negative); Blood Negative (Negative); Clarity Sl Cloudy (Clear); Glucose Negative (Negative); Ketones Negative (Negative); Leukocyte Esterase Negative (Negative); Nitrite Negative (Negative); Specific Gravity >= 1.030 (1.005-1.025); Urobilinogen 0.2 mg/dL (Up to 0.2); pH 5.5 (5-8)
== END 2024-03-17 09:44 | disposition home or self-care (01) ==
PROVIDERS: Emergency Provider Emergency Medicine; PCP Nurse Practitioner Family
DX: M54.50 Low back pain, unspecified (principal); F17.290 Nicotine dependence, other tobacco product, uncomplicated
CPT/HCPCS: 81025; 96372; 99283; 81003; J1100; J1885

== ENCOUNTER 2024-04-24 23:30 | Emergency (ER) | payer MEDICAID, SELFPAY ==
[2024-04-24 23:32] VITALS: BP 150/83; PULSE 99; RESP 12; TEMP 36.4; O2SAT 98
--- NOTE | 2024-04-25 00:12 | W.ED.GENAD ---
Discharge Plan Disposition Patient Disposition: Home Condition: Good Discharge Details Clinical Impression: Right leg swelling Primary Care Provider: Timmy Bolton ED Provider: Mariusz Mendez Home Meds and New Rx's Prescriptions: No Action levonorgestrel-ethinyl estrad [Vienva] 0.1-20 mg-mcg tablet 1 tab PO DAILY Qty: 84 4RF Wegovy 0.25 mg/0.5 mL pen injector 0.25 mg subcut QWEEK Qty: 2 0RF Rx Instructions: administer weeks 1 through 4 of therapy meloxicam 15 mg tablet 15 mg PO DAILY Qty: 90 4RF gabapentin 300 mg capsule 600 mg PO TID Qty: 540 5RF baclofen 10 mg tablet 10 mg PO TID Qty: 60 1RF buspirone 10 mg tablet 10 mg PO TID MDD 60 mg PRN (Reason: anxiety) Qty: 90 0RF Rx Instructions: May take up to 20 mg po TID prn anxiety albuterol sulfate 90 mcg/actuation HFA aerosol inhaler 2 inh inhalation Q6H PRN (Reason: shortness of breath or wheezing) Qty: 18 1RF (DME) BreatheRite MDI Spacer Spacer See Rx Instructions .ROUTE .MEDSUPPLY Qty: 1 0RF Rx Instructions: As directed albuterol sulfate 90 mcg/actuation aerosol powdr breath activated 2 inh inhalation Q6H PRN (Reason: shortness of breath or wheezing) Qty: 1 0RF lidocaine [Lidoderm] 5 % adhesive patch,medicated 1 patch topical DAILY Qty: 15 0RF Rx Instructions: leave on most painful area for up to 12 hrs Discharge Instructions Additional Instructions: At this time your exam is reassuring. My limited bedside ultrasound does not show any evidence of blood clot currently. My highest suspicion is that there is a component of a strained or partially torn muscle that may be causing your symptoms. I do not see any evidence of large tumor or infection otherwise. Please use the compression stockings daily, please follow-up closely for your ultrasound on Friday. If you notice any worsening of your symptoms, or any new symptoms such as vomiting, diarrhea, fever, chills, shortness of breath, chest pain, numbness, weakness, or fainting , please return immediately to the emergency department for reevaluation. Please follow up with your primary care provider as soon as possible for reassessment and reevaluation. As always, it was a pleasure participating in your medical care today. Referrals: Timmy Bolton NP [Primary Care Provider] - [facility] General Date/Time Provider Initiated Documentation: 04/24/24 23:37. [facility] Narrative: This is a 24-year-old female with a past medical history of chronic back pain with associated neuralgia, BMI of 43, chronic GERD, nonalcoholic fatty liver disease, who presents today for right leg swelling. Patient states that she woke up this morning and noted that her right calf was notably swollen compared to left. Minimal tenderness. She states that she did do some extra work yesterday at her occupation which did put additional stress and strain on her lower extremities. Denies PE risk factors such as recent long car rides, immobilization, recent surgery, prior history of DVT or PE, family history of PE or DVT, and smoking, Hemoptysis, history of cancer. She does take oral contraceptives though. She went to her primary care provider's office today, and was scheduled for ultrasound and 48 hours on Friday morning. However this evening she became notably stressed and anxious about the swelling, and came here for further evaluation. Patient has no other complaints at this time. No new numbness tingling or weakness in the lower extremity. She denies any cough fever or chills. No chest pain or shortness of breath. Minimal calf achiness. No other complaints at this time. Patient did use her father's old compression stocking, which she states has slightly helped in the swelling. Related Data Home Medications ?Medication ?Instructions ?Recorded ?Confirmed albuterol sulfate 90 mcg/actuation 2 inh inhalation Q6H PRN shortness 02/11/24 04/24/24 aerosol inhaler of breath or wheezing #18 grams inhalational spacing device #1 ea 02/11/24 03/12/24 (BreatheRite MDI Spacer) levonorgestrel-ethinyl estradiol 1 tab PO DAILY #84 tabs 03/08/24 04/24/24 0.1 mg-20 mcg tablet (Vienva) albuterol sulfate 90 mcg/actuation 2 inh inhalation Q6H PRN shortness 03/10/24 03/12/24 breath activated powder inhaler of breath or wheezing #1 ea lidocaine 5 % topical patch 1 patch topical DAILY #15 ea 07/10/24 08/17/24 (Lidoderm) baclofen 10 mg tablet 10 mg PO TID #60 tabs 04/24/24 04/24/24 buspirone 10 mg tablet 10 mg PO TID PRN anxiety #90 tabs 04/24/24 04/24/24 gabapentin 300 mg capsule 600 mg (2 x 300 mg) PO TID #540 04/24/24 04/24/24 caps meloxicam 15 mg tablet 15 mg PO DAILY #90 tabs 04/24/24 04/24/24 semaglutide (weight loss) 0.25 0.25 mg (0.5 mL) subcut QWEEK #2 mL 04/24/24 04/24/24 mg/0.5 mL subcutaneous pen injector (Wegovy) Previous Rx's ?Medication ?Instructions ?Recorded albuterol sulfate 90 mcg/actuation 2 inh inhalation Q6H PRN shortness 02/11/24 aerosol inhaler of breath or wheezing #18 grams inhalational spacing device #1 ea 02/11/24 (BreatheRite MDI Spacer) levonorgestrel-ethinyl estradiol 1 tab PO DAILY #84 tabs 03/08/24 0.1 mg-20 mcg tablet (Vienva) albuterol sulfate 90 mcg/actuation 2 inh inhalation Q6H PRN shortness 03/10/24 breath activated powder inhaler of breath or wheezing #1 ea lidocaine 5 % topical patch 1 patch topical DAILY #15 ea 03/17/24 (Lidoderm) baclofen 10 mg tablet 10 mg PO TID #60 tabs 04/24/24 buspirone 10 mg tablet 10 mg PO TID PRN anxiety #90 tabs 04/24/24 gabapentin 300 mg capsule 600 mg (2 x 300 mg) PO TID #540 04/24/24 caps meloxicam 15 mg tablet 15 mg PO DAILY #90 tabs 04/24/24 semaglutide (weight loss) 0.25 0.25 mg (0.5 mL) subcut QWEEK #2 mL 04/24/24 mg/0.5 mL subcutaneous pen injector (Wegovy) Allergies Allergy/AdvReac Type Severity Reaction Status Date / Time No Known Allergies Allergy Verified 04/24/24 23:41 General Stated Complaint: Orthopedic PILLO: 3 Review of Systems All systems reviewed & are unremarkable except as noted in HPI and below Exam Narrative Exam Narrative: 1.Const: Well-nourished, Well-developed, appearing stated age 2.Eyes: PERRL, no conjunctival injection, and symmetrical lids. 3.ENT: Atraumatic external nose and ears. Moist MM. Neck: Symmetric, trachea midline, No thyromegaly. 4.CVS: +S1/S2, No murmurs or gallops. Peripheral pulses 2+ and equal in all extremities. Brisk capillary refill in all extremities. 5.RESP: Unlabored respiratory effort. Clear to auscultation bilaterally. No wheezes rales or rhonchi 6.GI: Soft, Nontender/Nondistended, No hepatosplenomegaly. No guarding or rebound. 7.MSK: Normocephalic/Atraumatic, Extremities w/o deformity or ttp No cyanosis or clubbing, Normal movement of all extremities. Patient's right calf is measured at 51.5 cm, left calf is 48.75 cm. Per nursing measurements. No significant tenderness, no redness or warmth to suggest cellulitis. Negative Homans' sign. Excellent plantar and dorsiflexion strength. No tendon abnormality for the Achilles tendon. No posterior popliteal space tenderness. No bony tenderness. 8.Skin: Warm, Dry. No rashes or lesions. 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 Sensation grossly intact, no focal neurologic deficits. 10.Psych: (AAO) x3. Appropriate mood and affect Course Vital Signs Vital signs: Vital Signs Temperature 36.4 C L 04/24/24 23:32 Pulse 99 H 04/24/24 23:32 Respiratory Rate 12 04/24/24 23:32 Blood Pressure 150/83 H 04/24/24 23:32 Pulse Oximetry 98 04/24/24 23:32 Temperature 36.4 C L 04/24/24 23:32 Temperature Source Skin 04/24/24 23:32 Pulse 99 H 04/24/24 23:32 Respiratory Rate 12 04/24/24 23:32 Respiratory Effort Normal 04/24/24 23:43 Blood Pressure 150/83 H 04/24/24 23:32 Blood Pressure Position Sitting 04/24/24 23:32 Pulse Oximetry 98 04/24/24 23:32 Oxygen Delivery Method Room Air 04/24/24 23:32 Oxygen Flow Rate 0 04/24/24 23:32 Pain Level 0 04/24/24 23:32 Medical Decision Making This is a 24-year-old female with a past medical history of chronic back pain with associated neuralgia, BMI of 43, chronic GERD, nonalcoholic fatty liver disease, who presents today for right leg swelling. Patient states that she woke up this morning and noted that her right calf was notably swollen compared to left. Minimal tenderness. She states that she did do some extra work yesterday at her occupation which did put additional stress and strain on her lower extremities. Denies PE risk factors such as recent long car rides, immobilization, recent surgery, prior history of DVT or PE, family history of PE or DVT, and smoking, Hemoptysis, history of cancer. She does take oral contraceptives though. She went to her primary care provider's office today, and was scheduled for ultrasound and 48 hours on Friday morning. However this evening she became notably stressed and anxious about the swelling, and came here for further evaluation. Patient has no other complaints at this time. No new numbness tingling or weakness in the lower extremity. She denies any cough fever or chills. No chest pain or shortness of breath. Minimal calf achiness. No other complaints at this time. Patient did use her father's old compression stocking, which she states has slightly helped in the swelling. Physical exam demonstrates the patient's right calf is measured at 51.5 cm, left calf is 48.75 cm. Per nursing measurements. No significant tenderness, no redness or warmth to suggest cellulitis. Negative Homans' sign. Excellent plantar and dorsiflexion strength. No tendon abnormality for the Achilles tendon. No posterior popliteal space tenderness. No bony tenderness. Limited bedside ultrasound was performed and showed no evidence of DVT or other significant abnormality. I had a long discussion with the patient regarding the limitations of my own ultrasonography, the importance of getting her next formal ultrasound, as well as discussion on taking potential anticoagulates in the meantime. We discussed risk and benefits of oral versus injectable anticoagulants and the patient has declined these at this time. As an alternative she has elected to take full dose aspirin. We will administer this here. Likelihood for DVT is very low clinically at this time, however I do feel formal ultrasonography is still indicated. Will recommend continuation of this. Differential is highest for mild muscle tear or irritation. Lipoma less likely. Will recommend Tylenol and Motrin as needed for pain, ultrasonography, and close follow-up. Patient will be given compression stockings. No hypotension, pleuritic chest pain or shortness of breath to suggest PE. No redness or warmth to suggest cellulitis. Discussed red flags for which to return. I have extensively reviewed the treatment plan and discharge instructions with the patient and their family. I have addressed all patient concerns at this time. The patient and family was made aware of what symptoms to monitor for that would warrant a return to the emergency department. Discussed the plan with the patient and family, they demonstrate verbal understanding and agreement with our assessment and plan at this time. The documentation in this chart was dictated using [employer] dictation software. Please excuse any dictation errors. Quality:SDOH Health Related Social Needs: No Data to Display PFSH All Active Problems Right leg swelling (Acute) Right leg swelling (Acute) Lumbar disc herniation with radiculopathy (Acute) Eczema (Acute) Class 3 obesity (Acute) Vaginal discomfort (Acute) NAFLD (nonalcoholic fatty liver disease) (Chronic) FIGUEROA Chronic GERD (Chronic) Biliary dyskinesia (Acute) BMI 40.0-44.9, adult (Acute) Generalized anxiety disorder (Acute) Oral contraceptive use (Acute) Pelvic pain (Acute) Medical History Arthralgia Encounter for counseling regarding contraception Lower back pain History of anal fissures Cough Postprandial RUQ pain Rhinosinusitis URI (upper respiratory infection) History of hemorrhoids Bright red rectal bleeding Depressed Rash Humerus lesion, right Tendonitis of long head of biceps brachii of right shoulder Tonsillitis Left foot pain Smoker (09/23/17) Increased body mass index (BMI) (10/23/17) Surgical History History of laparoscopic cholecystectomy (~03/18/23) No significant past surgical history Family History Mother Asthma Father Alcohol abuse Essential hypertension Diabetes Paternal Grandfather Parkinson disease Paternal Grandmother Essential hypertension Asthma Social History Smoking/Tobacco Use Status: Current every day Tobacco Type: e-cigarettes Tobacco: How many years used: 4 Quit status: considering quitting Second Hand Exposure: Yes Counseling given: counseling >3 minutes Smoking risk assessment performed?: Yes Alcohol Intake: current Alcohol Intake frequency: a few times a week Alcohol type: beer Drug use: Rarely Substance use type: marijuana Details: edible Caregiver/Support person: No Household members: family Housing: house Pets and animals: Yes Pets and animals: dog(s), horse(s), turtle(s) and farm animals Sexually active: No Do you think of yourself as: straight/heterosexual Current gender identity: female What is your relationship status?: never How often do you talk on the phone with friends or family?: three or more times per week How often do you get together with friends or relatives?: three or more times per week How often do you attend taoism or anabaptist services?: 4 or more times per year Do you belong to any clubs or organized social groups?: no Panel score (0-1 are the most socially isolated patients): 2 What type of physical activity do you participate in: walking and other 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 Date GA/Weeks # Preg Succ Route Wgt Sex Labor Lgth Anesthesia Location Prov Complic 07/29/21 4 Delivery Date: 07/29/21 Last Updated by: Tamiko Beach MD [facility] Exam (ED) Limited Vascular Exam DATE OF EXAM: 04/25/24 TIME OF EXAM: 00:41 PROVIDER THAT PERFORMED THE STUDY: Mariusz Mendez IS THIS A REPEAT EXAM DURING THIS ENCOUNTER: No Vascular Exam: Right lower extremity REASON FOR EXAM: Concern for DVT right lower extremity VISUALIZED STRUCTURES: Right common femoral vein, Right popliteal vein and Right superficial femoral vein PERTINENT FINDINGS/IMPRESSION: Compressible veins right leg and No apparent abnormalities Exam Complete
[2024-04-25] MEDS: Aspirin 325 MG TAB PO (00:23)
== END 2024-04-25 00:21 | disposition home or self-care (01) ==
PROVIDERS: Emergency Provider Student in an Organized Health Care Education/Training Program; PCP Nurse Practitioner Family
DX: R22.41 Localized swelling, mass and lump, right lower limb (principal)
CPT/HCPCS: 93971; 99284; 99283

== ENCOUNTER 2024-05-05 16:18 | Outpatient (CLI) | payer MEDICAID, SELFPAY ==
--- NOTE | 2024-05-05 16:30 | DI.RAD_ITS ---
Exam(s) XR PAIN CLINIC LUMBAR SP 2V EXAM: XR PAIN CLINIC LUMBAR SP 2V CLINICAL HISTORY: Dx: Lumbar Radiculopathy. TECHNIQUE: Fluoroscopy was provided for the referring physician for guidance with performing pain cl inic injection procedure. COMPARISON: No exams were available for comparison FINDINGS: Please see procedure note for details. Fluoro time: 19 seconds RADIATION DOSE DELIVERED: Ka,r=13.7 mGy
[2024-05-05 16:33] VITALS: BP 152/101; PULSE 91; RESP 20; TEMP 36.7; O2SAT 99
[2024-05-05 16:59] VITALS: PULSE 95
[2024-05-05 17:00] VITALS: PULSE 98; RESP 23; O2SAT 99
[2024-05-05 17:10] VITALS: BP 163/94; PULSE 81; PULSE 84; RESP 18; O2SAT 99
[2024-05-05] MEDS: methylPREDNISolone ACETATE 80 MG/ML VIAL IJ (17:19)
[2024-05-05] MEDS: Epidural Tray 1 EACH MC (17:19)
[2024-05-05] MEDS: Omnipaque 240 MG/ML 50 ML BTL IJ (17:19)
--- NOTE | 2024-05-05 17:50 | PDOC.PAIN_ITS ---
Date of service: 05/05/24 Time of Service: 17:30 Pain Managment Procedure Note Procedure Note Procedure Note: PROCEDURE NOTE LUMBAR EPIDURAL STEROID INJECTION Date of Service: May 05, 2024 Patient:Yadira Amezquita? Provider: Toni Valdivia DO, MPH Yadira Adams has been referred to the [facility] for a lumbar epidural steroid injection. Pre-operative diagnosis: Lumbosacral Radiculopathy Post-operative diagnosis: Same Pre-Procedure Pain: VAS= 9 /10 Comments: She has this procedure on 01/08/24 and had >50% pain relief for >3 months. She is trying to avoid back surgery. Yadira was interviewed and the medical record was reviewed.? There were no medical, pharmacologic, radiographic or other structural contraindications to attempting fluoroscopically guided Lumbar epidural steroid injection.? Risks, potential side effects, indications, and potential benefits of the procedure were reviewed with Yadira.? Questions and concerns were addressed.? After it was clear that Yadira was fully informed about the procedure, the printed consent form was signed by the patient and myself.? Yadira was placed in the prone position on the fluoroscopy table and automated blood pressure cuff and pulse oximeter applied. The skin entry point for entering/approaching the epidural space for the lumbar epidural steroid injection was marked. Following thorough chlorhexadine preparation of the skin and draping and 1% lidocaine infiltration of the skin entry point and subcutaneous tissues, an 18 gauge Touhy needle was placed and advanced under fluoroscopic guidance and with loss of resistance technique into the L5-S1 epidural space. Needle tip placement and depth were aided and confirmed by fluoroscopy. There was no paresthesia or return of blood or CSF through the needle. 1 mls of Omnipaque 240 was injected with clear epidural spread confirmed with fluoroscopy. 80 mg of Depo-Medrol was? injected. This was followed by 1 ml of preservative-free normal saline to flush the steroid out of the needle. There was no unusual discomfort expressed by Yadira. The needle was withdrawn without difficulty. (49 mls of Omnipaque was wasted) Yadira was observed and was without hemodynamic, neurologic, or allergic reactions.? Fluoroscopic images were digitally archived. Yadira's vital signs were stable throughout the procedure and were as recorded in nursing records. Follow up plans and appointments were discussed with Yadira. Post procedure instruction was given as documented in nursing records and having met discharge criteria Yadira was discharged from the [facility]. COMMENTS: No apparent complications. Post-procedure pain: VAS= 7/10. Yadira to contact [facility] as needed. If at least 50% improvement in pain and/or function for at least 3 months is achieved, this procedure can be repeated. I personally performed this entire procedure. TONI VALDIVIA DO, MPH ABPMR-subspecialty board certification in Pain Medicine [facility]
== END 2024-05-05 16:19 | disposition home or self-care (01) ==
LOC: PC 16:18
PROVIDERS: PCP Nurse Practitioner Family; Visit Provider Preventive Medicine Occupational Medicine
DX: M54.17 Radiculopathy, lumbosacral region (principal)
CPT/HCPCS: 62323; 72100; J1010; Q9967

== ENCOUNTER 2024-05-27 03:19 | Outpatient (CLI) | payer MEDICAID, SELFPAY ==
--- NOTE | 2024-05-27 13:02 | TELEFU_ITS ---
Date of service: 05/27/24 Time of Service: 10:00 Nutrition Note NOTE: Yadira referred for nutrition visit for weight management - has history of back pain and needs to lose weight for back surgery. PMH significant for NAFLD, GERD, anxiety. We reviewed to components to her goals - getting in the right macronutrient zone and then within those macronutrient goals, choosing foods that will help nourish the body with micronutrients. We reviewed macro recommendations: 2100kcals for weight loss, 210grams total carbohydrate, 157g protein, 70g fat. reviewed resources like [employer] where you can plug in your info and macro targets and let it menu plan for those numbers. Or can put pen to paper and strategize for a goal eating routine and keep menus lined up with macros. We reviewed a more simple and basic approach like starting off making sure to get at least 25g fiber per day out of total carb amount above and also get 25g or less of added sugar category of total carb amount daily. Reviewed protein will be griffiths and should get a good amount but needs to choose more plant sources and make sure animal sources are leaner to avoid going over kcals. Also suggested whey protein as a good option 1-2 times per day to get about 25- 50g of her total met. Highlighted importance of exercise (especially resistance training), stress mgt, and good sleep to help towards her goal but discouraged the tendancy to overcompensate by allowing indulgences too often. Plan is to follow up with phone call beginning of June to get an update and schedule folllow up if needed/desired. Time Spent in Nutritional Counseling and Treatment: 40 minutes
== END 2024-05-27 03:20 | disposition home or self-care (01) ==
LOC: DS 03:19
PROVIDERS: PCP Nurse Practitioner Family; Visit Provider Dietitian, Registered
DX: Z71.3 Dietary counseling and surveillance (principal)
CPT/HCPCS: 00123; 97802

== ENCOUNTER 2024-06-22 01:35 | Outpatient (CLI) | payer MEDICAID, SELFPAY ==
--- NOTE | 2024-06-22 14:00 | DI.MRI_ITS ---
Exam(s) MR LUMBAR SPINE WO EXAM: MR LUMBAR SPINE WO CLINICAL HISTORY: worsening symptoms,rt leg swelling,lumbar disc herniation with radiculopath. TECHNIQUE: Multiplanar multisequence MRI of the Lumbar spine was performed. COMPARISON: MR MR LUMBAR SPINE WO from 07/29/[address] ABDOMEN PELVIS W from 11/22/2023 XR PAIN CLINIC LUMBAR SP 2V from 05/05/2024 FINDINGS: Bones: The last intervertebral disc space is designated the L5/S1 level for the numbering purpose of this examination. The vertebral body heights are well maintained. Alignment is satisfactory. The si gnal characteristics are unremarkable. Cord: The conus tip ends at the L1 level. It is of normal size and signal intensity. T12-L1: No disc herniations or bulges are present. No central spinal canal or neural foraminal stenos is. L1-2: No disc herniations or bulges are present. No central spinal canal or neural foraminal stenosis . L2-3: No disc herniations or bulges are present. No central spinal canal or neural foraminal stenosis . L3-4: There is a moderate size central disc herniation with extrusion posterior to the L4 vertebral b castro. This has shown slight interval increase in size compared to the prior examination. There is mi ld narrowing of the central spinal canal. No significant neural foraminal stenosis is seen. L4-5: There is a moderately large right paracentral disc herniation. There is impingement of the rig ht L5 nerve root secondary to the right lateral recess stenosis. There is mild narrowing of the cent ral spinal canal. No significant neural foraminal stenosis is seen. L5-S1: There is again seen a central and left paracentral moderately large disc herniation at L5-S1. It appears have increased in size compared to the prior examination. The disc impinges on the left S1 nerve root. There is also impingement on the left L5 nerve root. There is narrowing of the centr al spinal canal. No significant right neural foraminal stenosis is seen. Soft tissues: The visualized SI joints and sacrum are well maintained. The paraspinal soft tissues ar e unremarkable. IMPRESSION: 1. Interval increase in size of the L5-S1 disc herniation since 07/29/2023. The disc impinges upon b oth the left S1 nerve root and the left L5 nerve root. There is resultant central spinal canal and l eft neural foraminal narrowing. 2. Interval increase in size of the extruded central disc at L3-L4. It does result in narrowing of t he central spinal canal. 3. Moderately large right paracentral disc herniation at L4-L5 impinging upon the right L5 nerve root secondary to right lateral recess stenosis. There is also mild narrowing of the central spinal sandra l. DATA REPOSITORY:
== END 2024-06-22 01:55 ==
LOC: DI 01:35
PROVIDERS: PCP Nurse Practitioner Family; Visit Provider Nurse Practitioner Family
DX: M51.16 Intervertebral disc disorders with radiculopathy, lumbar region (principal); M79.89 Other specified soft tissue disorders
CPT/HCPCS: 72148

== ENCOUNTER 2024-06-28 08:02 | Emergency (ER) | payer MEDICAID, SELFPAY ==
[2024-06-28 08:04] VITALS: BP 126/85; PULSE 92; RESP 18; TEMP 35.8; O2SAT 99
--- NOTE | 2024-06-28 08:30 | ED.GENADUL_ITS ---
Discharge Plan Disposition Patient Disposition: Home Condition: Stable Discharge Details Clinical Impression: Lumbar disc herniation, Lumbar nerve root impingement Primary Care Provider: Timmy Bolton ED Provider: Abran Us Home Meds and New Rx's Prescriptions: Continued lidocaine [Lidoderm] 5 % adhesive patch,medicated 1 patch topical DAILY Qty: 15 12RF Rx Instructions: leave on most painful area for up to 12 hrs levonorgestrel-ethinyl estrad [Vienva] 0.1-20 mg-mcg tablet 1 tab PO DAILY Qty: 84 4RF meloxicam 15 mg tablet 15 mg PO DAILY Qty: 90 4RF gabapentin 300 mg capsule 600 mg PO TID Qty: 540 5RF albuterol sulfate 90 mcg/actuation HFA aerosol inhaler 2 inh inhalation Q6H PRN (Reason: shortness of breath or wheezing) Qty: 18 1RF (DME) BreatheRite MDI Spacer Spacer See Rx Instructions .ROUTE .MEDSUPPLY Qty: 1 0RF Rx Instructions: As directed albuterol sulfate 90 mcg/actuation aerosol powdr breath activated 2 inh inhalation Q6H PRN (Reason: shortness of breath or wheezing) Qty: 1 0RF baclofen 10 mg tablet 10 mg PO BID Discontinued sertraline 50 mg tablet 50 mg PO .COMPLEX Qty: 90 1RF Rx Instructions: 50 mg orally; * Take 1/2 tab, qHS x 2 weeks then take 1 tab, qHS until next appt. * hydroxyzine HCl 10 mg tablet 10 mg PO BID PRN (Reason: anxiety) Qty: 60 2RF Rx Instructions: * doses should be at least 4 hours apart * Discharge Instructions Instructions: Lumbar spinal stenosis, Herniated Disc (DC) Additional Instructions: Please contact your primary care physician to arrange follow-up. Please follow-up with your spinal specialist as soon as possible. Return to the ER immediately for any worsening or new concerning symptoms. Referrals: Timmy Bolton, SERVICES PROGRAM MANAGER [Primary Care Provider] - Discharge Data Discharge Date/Time-TO BE ENTERED AT DEPARTURE: 06/28/24 10:15 HPI General Mode of arrival: ambulatory . Date/Time Provider Initiated Documentation: 06/28/24 08:05 . Limitations to Documentation: no limitations . Information obtained by: patient . HPI Narrative: 24-year-old female with history of low back pain, chronically, followed by orthopedics with referral to orthopedic spinal specialist, presents today with exacerbation of her chronic low back pain. Patient notes she has been taking her gabapentin, baclofen, Tylenol and ibuprofen and has persistent pain. Patient notes she has had to come to [facility] for this in the past and pain improved with intramuscular injection. Patient is here requesting IM analgesic. No new neurologic symptoms. No bowel or bladder dysfunction. She continues to have paresthesias of her legs that is chronic. Related Data Home Medications ?Medication ?Instructions ?Recorded ?Confirmed albuterol sulfate 90 mcg/actuation 2 inh inhalation Q6H PRN shortness 02/11/24 06/29/24 aerosol inhaler of breath or wheezing #18 grams inhalational spacing device #1 ea 02/11/24 06/29/24 (BreatheRite MDI Spacer) levonorgestrel-ethinyl estradiol 1 tab PO DAILY #84 tabs 03/08/24 06/29/24 0.1 mg-20 mcg tablet (Vienva) albuterol sulfate 90 mcg/actuation 2 inh inhalation Q6H PRN shortness 03/10/24 06/29/24 breath activated powder inhaler of breath or wheezing #1 ea gabapentin 300 mg capsule 600 mg (2 x 300 mg) PO TID #540 04/24/24 06/29/24 caps meloxicam 15 mg tablet 15 mg PO DAILY #90 tabs 04/24/24 06/29/24 lidocaine 5 % topical patch 1 patch topical DAILY #15 ea 06/03/24 06/29/24 (Lidoderm) baclofen 10 mg tablet 10 mg PO BID 06/28/24 06/29/24 Previous Rx's ?Medication ?Instructions ?Recorded albuterol sulfate 90 mcg/actuation 2 inh inhalation Q6H PRN shortness 02/11/24 aerosol inhaler of breath or wheezing #18 grams inhalational spacing device #1 ea 02/11/24 (BreatheRite MDI Spacer) levonorgestrel-ethinyl estradiol 1 tab PO DAILY #84 tabs 03/08/24 0.1 mg-20 mcg tablet (Vienva) albuterol sulfate 90 mcg/actuation 2 inh inhalation Q6H PRN shortness 03/10/24 breath activated powder inhaler of breath or wheezing #1 ea gabapentin 300 mg capsule 600 mg (2 x 300 mg) PO TID #540 04/24/24 caps meloxicam 15 mg tablet 15 mg PO DAILY #90 tabs 04/24/24 lidocaine 5 % topical patch 1 patch topical DAILY #15 ea 06/03/24 (Lidoderm) Allergies Allergy/AdvReac Type Severity Reaction Status Date / Time No Known Allergies Allergy Verified 06/28/24 08:08 General Stated Complaint: Nk/Back Pain PILLO: 3 Review of Systems All systems reviewed & are unremarkable except as noted in HPI and below Musculoskeletal Musculoskeletal: Reports as per HPI Exam Const General: cooperative and no acute distress HENMT Mouth: moist mucous membranes Eyes Conjunctivae: normal conjunctivae Sclera: normal sclerae Resp Auscultation: clear to auscultation bilaterally, no rales, no rhonchi and no wheezes Cardio Rate: regular rate and not tachycardic Rhythm: regular rhythm GI Palpation: soft, not firm, no guarding, no masses, not rigid and nontender Back/Spine/Pelvis Thoracic/Lumbar Spine: No thoracic spinal tenderness and lumbar spinal tenderness Skin General skin exam: no rashes or lesions noted Neuro General: patient alert, patient awake, patient oriented x3 and tone normal Other: Bilateral sensation of the lower extremities intact with no saddle anesthesia. Patellar DTRs 0 on right, 1+ on left. 4 out of 5 strength right plantarflexion. Extrem General: no edema Course Vital Signs Vital signs: Vital Signs Temperature 35.8 C L 06/28/24 08:04 Pulse 92 H 06/28/24 08:04 Respiratory Rate 18 06/28/24 08:04 Blood Pressure 126/85 06/28/24 08:04 Pulse Oximetry 99 06/28/24 08:04 Temperature 35.8 C L 06/28/24 08:04 Temperature Source Temporal Artery Scan 06/28/24 08:04 Pulse 92 H 06/28/24 08:04 Respiratory Rate 18 06/28/24 08:04 Blood Pressure 126/85 06/28/24 08:04 Blood Pressure Position Sitting 06/28/24 08:04 Pulse Oximetry 99 06/28/24 08:04 Oxygen Delivery Method Room Air 06/28/24 08:04 Oxygen Flow Rate 0 06/28/24 08:04 Medical Decision Making 24-year-old female with history of chronic low back pain, presents with exacerbation of low back pain. Patient does have diminished deep tendon reflex patellar tendon bilaterally right greater than left. She has weakness plantarflexion right foot. Concern for disc herniation. Toradol 30 mg IM and lidocaine patch administered. I reviewed MRI that was ordered by PCP and dated 06/22/2024, impression by radiologist: Bones: The last intervertebral disc space is designated the L5/S1 level for the numbering purpose of this examination. The vertebral body heights are well maintained. Alignment is satisfactory. The signal characteristics are unremarkable. Cord: The conus tip ends at the L1 level. It is of normal size and signal intensity. T12-L1: No disc herniations or bulges are present. No central spinal canal or neural foraminal stenosis. L1-2: No disc herniations or bulges are present. No central spinal canal or neural foraminal stenosis. L2-3: No disc herniations or bulges are present. No central spinal canal or neural foraminal stenosis. L3-4: There is a moderate size central disc herniation with extrusion posterior to the L4 vertebral body. This has shown slight interval increase in size compared to the prior examination. There is mild narrowing of the central spinal canal. No significant neural foraminal stenosis is seen. L4-5: There is a moderately large right paracentral disc herniation. There is impingement of the right L5 nerve root secondary to the right lateral recess stenosis. There is mild narrowing of the central spinal canal. No significant neural foraminal stenosis is seen. L5-S1: There is again seen a central and left paracentral moderately large disc herniation at L5-S1. It appears have increased in size compared to the prior examination. The disc impinges on the left S1 nerve root. There is also impingement on the left L5 nerve root. There is narrowing of the central spinal canal. No significant right neural foraminal stenosis is seen. Soft tissues: The visualized SI joints and sacrum are well maintained. The paraspinal soft tissues are unremarkable. IMPRESSION: 1. Interval increase in size of the L5-S1 disc herniation since 07/29/2023. The disc impinges upon both the left S1 nerve root and the left L5 nerve root. There is resultant central spinal canal and left neural foraminal narrowing. 2. Interval increase in size of the extruded central disc at L3-L4. It does result in narrowing of the central spinal canal. 3. Moderately large right paracentral disc herniation at L4-L5 impinging upon the right L5 nerve root secondary to right lateral recess stenosis. There is also mild narrowing of the central spinal canal. I called and spoke with the patient's PCP SERVICES PROGRAM MANAGER Christine, discussed ED presentation and course today. She will work on outpatient follow-up with Dr. Bunn. A copy of the patient's MRI was provided the patient. She understands importance of timely follow-up with spinal specialist and will be calling today. Usual and customary discharge instructions were reviewed with the patient. Quality:SDOH Health Related Social Needs: Health related social needs inadequate housing(Z59.1), housing instability, housed, with risk of homelessness(Z59.811) Health related social needs details declines assistanc e PFSH All Active Problems (Updated 06/28/24 @ 09:11 by Abran Us MD) Lumbar nerve root impingement (Acute) Lumbar disc herniation (Acute) Irritability and anger (Acute) Right leg swelling (Acute) Lumbar disc herniation with radiculopathy (Acute) Eczema (Acute) Class 3 obesity (Acute) Vaginal discomfort (Acute) NAFLD (nonalcoholic fatty liver disease) (Chronic) FIGUEROA Chronic GERD (Chronic) Biliary dyskinesia (Acute) BMI 40.0-44.9, adult (Acute) Generalized anxiety disorder (Acute) Oral contraceptive use (Acute) Pelvic pain (Acute) Medical History Arthralgia Encounter for counseling regarding contraception Lower back pain History of anal fissures Cough Postprandial RUQ pain Rhinosinusitis URI (upper respiratory infection) History of hemorrhoids Bright red rectal bleeding Depressed Rash Humerus lesion, right Tendonitis of long head of biceps brachii of right shoulder Tonsillitis Left foot pain Smoker (09/23/17) Increased body mass index (BMI) (10/23/17) Surgical History History of laparoscopic cholecystectomy (~03/18/23) No significant past surgical history Family History Mother Asthma Father Alcohol abuse Essential hypertension Diabetes Paternal Grandfather Parkinson disease Paternal Grandmother Essential hypertension Asthma Social History Smoking/Tobacco Use Status: Current every day Tobacco Type: e-cigarettes Tobacco: How many years used: 6 Quit status: considering quitting Second Hand Exposure: Yes Counseling given: counseling >3 minutes Smoking risk assessment performed?: Yes Alcohol Intake: current Alcohol Intake frequency: a few times a month Alcohol type: beer Details: 6 or more drinks monthly Drug use: Rarely Substance use type: marijuana Counseling given: Yes Counseling provided: provider counseling Details: edible Adopted: No Caregiver/Support person: No Household members: significant other Housing: house Communication Needs: None Do you need help understanding health information?: Never Pets and animals: Yes Pets and animals: dog(s), horse(s), turtle(s) and farm animals Sexually active: Yes Current gender identity: female What is your relationship status?: never How often do you talk on the phone with friends or family?: three or more times per week How often do you get together with friends or relatives?: twice per week How often do you attend islam or alevism services?: 4 or more times per year Do you belong to any clubs or organized social groups?: no Panel score (0-1 are the most socially isolated patients): 2 What type of physical activity do you participate in: walking and other 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, BARN CHORES Duration: 30-45 minutes/day Frequency: 5-6 times per week Yadira/Episcopal: [employer]ar[employer] Seatbelt use: sometimes Helmet use: Yes Helmet use: sometimes Drive 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 Date GA/Weeks # Preg Succ Route Wgt Sex Labor Lgth Anesth esia Location Prov Complic 07/29/21 4 Delivery Date: 07/29/21 Last Updated by: Tamiko Beach MD [facility]
[2024-06-28] MEDS: Ketorolac 30 MG/ML VIAL IM (08:43)
[2024-06-28] MEDS: Lidocaine 5% Patch 1 PATCH TP (08:43)
== END 2024-06-28 10:15 | disposition home or self-care (01) ==
PROVIDERS: Emergency Provider Student in an Organized Health Care Education/Training Program; PCP Nurse Practitioner Family
DX: M54.16 Radiculopathy, lumbar region; M51.26 Other intervertebral disc displacement, lumbar region
CPT/HCPCS: 96372; 99284; 99283; J1885

== ENCOUNTER 2024-07-20 09:56 | Emergency (ER) | payer MEDICAID, SELFPAY ==
[2024-07-20 10:04] VITALS: BP 118/80; PULSE 84; RESP 18; TEMP 36.4; O2SAT 99
--- NOTE | 2024-07-20 10:32 | ED.GENADUL_ITS ---
Discharge Plan Disposition Patient Disposition: Home Condition: Stable Discharge Details Clinical Impression: Constipation Primary Care Provider: Timmy Bolton ED Provider: Earnest Napier Home Meds and New Rx's Prescriptions: Continued lidocaine [Lidoderm] 5 % adhesive patch,medicated 1 patch topical DAILY Qty: 15 12RF Rx Instructions: leave on most painful area for up to 12 hrs levonorgestrel-ethinyl estrad [Vienva] 0.1-20 mg-mcg tablet 1 tab PO DAILY Qty: 84 4RF meloxicam 15 mg tablet 15 mg PO DAILY Qty: 90 4RF gabapentin 300 mg capsule 600 mg PO TID Qty: 540 5RF albuterol sulfate 90 mcg/actuation HFA aerosol inhaler 2 inh inhalation Q6H PRN (Reason: shortness of breath or wheezing) Qty: 18 1RF (DME) BreatheRite MDI Spacer Spacer See Rx Instructions .ROUTE .MEDSUPPLY Qty: 1 0RF Rx Instructions: As directed baclofen 10 mg tablet 10 mg PO BID Discharge Instructions Additional Instructions: You can take 100 mg of docusate twice a day and also use milk of magnesia, follow dosing instructions on packaging. He now sees [id number] stool suppositories Follow-up with your primary care provider especially if the issues continue If you feel more ill or have new symptoms such as persistent vomiting return to the emergency department for reevaluation HPI General Mode of arrival: ambulatory . Date/Time Provider Initiated Documentation: 07/20/24 10:01 . Limitations to Documentation: no limitations . Information obtained by: patient . History of Present Illness 24 year old F presents to the emergency department with the chief complaint of constipation, described as moderate, Patient started experiencing this week(s) (1) and it has been intermittent. No relieving factors improve symptom(s), No exacerbating factors reported . Patient notes denies nausea/vomiting. Patient did receive the following treatments prior to arrival, none Related Data Home Medications ?Medication ?Instructions ?Recorded ?Confirmed albuterol sulfate 90 mcg/actuation 2 inh inhalation Q6H PRN shortness 02/11/24 07/20/24 aerosol inhaler of breath or wheezing #18 grams inhalational spacing device #1 ea 02/11/24 07/20/24 (BreatheRite MDI Spacer) levonorgestrel-ethinyl estradiol 1 tab PO DAILY #84 tabs 03/08/24 07/20/24 0.1 mg-20 mcg tablet (Vienva) gabapentin 300 mg capsule 600 mg (2 x 300 mg) PO TID #540 04/24/24 07/20/24 caps meloxicam 15 mg tablet 15 mg PO DAILY #90 tabs 04/24/24 07/20/24 lidocaine 5 % topical patch 1 patch topical DAILY #15 ea 06/03/24 07/20/24 (Lidoderm) baclofen 10 mg tablet 10 mg PO BID 06/28/24 07/20/24 Previous Rx's ?Medication ?Instructions ?Recorded albuterol sulfate 90 mcg/actuation 2 inh inhalation Q6H PRN shortness 02/11/24 aerosol inhaler of breath or wheezing #18 grams inhalational spacing device #1 ea 02/11/24 (BreatheRite MDI Spacer) levonorgestrel-ethinyl estradiol 1 tab PO DAILY #84 tabs 03/08/24 0.1 mg-20 mcg tablet (Vienva) gabapentin 300 mg capsule 600 mg (2 x 300 mg) PO TID #540 04/24/24 caps meloxicam 15 mg tablet 15 mg PO DAILY #90 tabs 04/24/24 lidocaine 5 % topical patch 1 patch topical DAILY #15 ea 06/03/24 (Lidoderm) Allergies Allergy/AdvReac Type Severity Reaction Status Date / Time No Known Allergies Allergy Verified 07/20/24 10:19 General Stated Complaint: Abd Prob PILLO: 3 Review of Systems All systems reviewed & are unremarkable except as noted in HPI and below Constitutional Constitutional: Denies chills and Denies fever(s) Cardiovascular Cardiovascular: Denies chest pain and Denies dyspnea Respiratory Respiratory: Denies cough and Denies dyspnea Gastrointestinal Gastrointestinal: Denies abdominal pain, Reports constipation and Denies vomiting Exam Const General: no acute distress Orientation: alert HENMT Head: normal to inspection Ears: external ears normal General nose exam: external nose normal Mouth: moist mucous membranes Eyes General: appearance normal, both eyes and all related structures Neck Neck: normal visual inspection Resp Effort & Inspection: normal respiratory effort and able to speak in complete sentences Cardio Rate: regular rate GI Palpation: soft and nontender Skin General skin exam: no rashes or lesions noted Neuro General: patient alert and patient oriented x3 Extrem General: normal to inspection Psych Mental Status: mental status grossly normal Course Vital Signs Vital signs: Vital Signs Temperature 36.4 C 07/20/24 10:04 Pulse 84 07/20/24 10:04 Respiratory Rate 18 07/20/24 10:04 Blood Pressure 118/80 07/20/24 10:04 Pulse Oximetry 99 07/20/24 10:04 Temperature 36.4 C 07/20/24 10:04 Pulse 84 07/20/24 10:04 Respiratory Rate 18 07/20/24 10:04 Respiratory Effort Normal, Non-Labored 07/20/24 10:17 Blood Pressure 118/80 07/20/24 10:04 Pulse Oximetry 99 07/20/24 10:04 Oxygen Delivery Method Room Air 07/20/24 10:04 Oxygen Flow Rate 0 07/20/24 10:04 Medical Decision Making 24-year-old female who states she has had issues with intermittent constipation since she had her gallbladder taken out approximately 3 years ago comes in with 1 week of intermittent constipation. She says she has been taking MiraLAX and stool softener which sometimes helps. She denies any severe abdominal pain, vomiting, fevers, rectal bleeding. She is alert and oriented x 4 on arrival and appears well. Her abdomen is soft and nontender. I suspect constipation, will check an x-ray to evaluate for stool burden. Given the lack of vomiting and having no abdominal tenderness on exam doubt entities such as small bowel obstruction and do not feel any labs or CT indicated X-ray shows small amount of stool burden. Patient is stable still an abdominal tenderness. I will have her start a stool softener daily and also use milk of magnesia. She will follow-up with her PCP and return precautions given Differential Diagnosis Differential Diagnosis: Constipation, food illness Quality:SDOH Health Related Social Needs: Health related social needs inadequate housing(Z59.1), housing instability, housed, with risk of homelessness(Z59.811) Health related social needs details declines assistanc e PFSH All Active Problems (Updated 07/20/24 @ 11:17 by Earnest Napier MD) Constipation (Acute) Lumbar nerve root impingement (Acute) Lumbar disc herniation (Acute) Irritability and anger (Acute) Right leg swelling (Acute) Lumbar disc herniation with radiculopathy (Acute) Eczema (Acute) Class 3 obesity (Acute) Vaginal discomfort (Acute) NAFLD (nonalcoholic fatty liver disease) (Chronic) FIGUEROA Chronic GERD (Chronic) Biliary dyskinesia (Acute) BMI 40.0-44.9, adult (Acute) Generalized anxiety disorder (Acute) Oral contraceptive use (Acute) Pelvic pain (Acute) Medical History Encounter for counseling regarding contraception Lower back pain Arthralgia History of anal fissures Cough Postprandial RUQ pain Rhinosinusitis URI (upper respiratory infection) History of hemorrhoids Bright red rectal bleeding Depressed Rash Humerus lesion, right Tendonitis of long head of biceps brachii of right shoulder Tonsillitis Left foot pain Smoker (09/23/17) Increased body mass index (BMI) (10/23/17) Surgical History History of laparoscopic cholecystectomy (~03/18/23) No significant past surgical history Family History Mother Asthma Father Alcohol abuse Essential hypertension Diabetes Paternal Grandfather Parkinson disease Paternal Grandmother Essential hypertension Asthma Social History Smoking/Tobacco Use Status: Current every day Tobacco Type: e-cigarettes Tobacco: How many years used: 6 Quit status: considering quitting Second Hand Exposure: Yes Counseling given: counseling >3 minutes Smoking risk assessment performed?: Yes Alcohol Intake: current Alcohol Intake frequency: a few times a month Alcohol type: beer Details: 6 or more drinks monthly Drug use: Rarely Substance use type: marijuana Counseling given: Yes Counseling provided: provider counseling Details: edible Adopted: No Caregiver/Support person: No Household members: significant other Housing: house Communication Needs: None Do you need help understanding health information?: Never Pets and animals: Yes Pets and animals: dog(s), horse(s), turtle(s) and farm animals Sexually active: Yes Current gender identity: female What is your relationship status?: never How often do you talk on the phone with friends or family?: three or more times per week How often do you get together with friends or relatives?: twice per week How often do you attend baptism or cheondoism services?: 4 or more times per year Do you belong to any clubs or organized social groups?: no Panel score (0-1 are the most socially isolated patients): 2 What type of physical activity do you participate in: walking and other 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, BARN CHORES Duration: 30-45 minutes/day Frequency: 5-6 times per week Yadira/Methodist: Pentecostalism Seatbelt use: sometimes Helmet use: Yes Helmet use: sometimes Drive intox 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 Date GA/Weeks # Preg Succ Route Wgt Sex Labor Lgth Anesth esia Location [facility] Complic 07/29/21 4 Delivery Date: 07/29/21 Last Updated by: Tamiko Beach MD Medical [facility] at [facility] Have you Been Recently Intoxicated or Drunk Within the Last 30 days?: No Have you Ever Experienced Previous Episodes of Alcohol Withdrawal?: No Have you ever Experienced Withdrawal Seizures?: No Have you ever Experienced Delirium Tremens(DT)s?: No Have you ever undergone Alcohol Rehabilitation Treatment (i.e, inpt ot outpatient treatment programs)?: No Have you ever Experienced Blackouts?: No Have you ever Combined Alcohol with other Downers within the last 90 days?: No Have you ever Combined Alcohol with any other Substance of Abuse during the last 90 days?: No Positive Blood Alcohol level on Presentation? [PCS.BAL]: No Evidence of Increased Autonomic Activity (i.e. HR>120, tremor, sweating, agitation, nausea)?: No Result: 0
[2024-07-20 10:47] LABS: Bilirubin Negative (Negative); Blood Trace-intact (Negative); Clarity Sl Cloudy (Clear); Glucose Negative (Negative); Ketones Negative (Negative); Leukocyte Esterase Trace (Negative); Nitrite Negative (Negative); Specific Gravity >= 1.030 (1.005-1.025); Urobilinogen 0.2 mg/dL (Up to 0.2)
--- NOTE | 2024-07-20 10:53 | DI.RAD_ITS ---
Exam(s) XR ABDOMEN FLAT PLATE EXAM: 2D digital imaging was performed. CLINICAL HISTORY: constipation. COMPARISON: CT CT ABDOMEN PELVIS W from 11/22/2023 TECHNIQUE: Supine views of the abdomen performed. FINDINGS: BOWEL GAS PATTERN: Nondistended. Small to moderate quantity of stool in the right side of the colon . Little stool distally. CALCIFICATIONS: No radiopaque calcifications. OSSEOUS STRUCTURES: Normal for age. OTHER FINDINGS: Right upper quadrant surgical clips. IMPRESSION: 1. Nonobstructive bowel gas pattern. 2. No radiopaque calculi. DATA REPOSITORY: RADIATION DOSE DELIVERED:
[2024-07-20 10:58] LABS: Bacteria Rare HPF (Negative); C & S Indicated? No/Sq. Contamination; Casts Negative LPF (Negative); Crystals Negative HPF (Negative); Epithelial Cells Many HPF (Negative); Mucus Negative (Negative); RBC 0-2 HPF (0-2); WBC 0-2 HPF (0-5)
[2024-07-20] MEDS: Acetaminophen 500 MG TAB 1000 MG PO (11:03)
[2024-07-20 11:28] VITALS: BP 140/82; PULSE 85; RESP 16; O2SAT 98
== END 2024-07-20 11:28 | disposition home or self-care (01) ==
PROVIDERS: Emergency Provider Emergency Medicine; PCP Nurse Practitioner Family
DX: K59.00 Constipation, unspecified (principal); Z90.49 Acquired absence of other specified parts of digestive tract; Z59.10 Inadequate housing, unspecified; Z59.811 Housing instability, housed, with risk of homelessness
CPT/HCPCS: 81025; 99283; 74018; 81003; 81015

== ENCOUNTER 2025-01-07 01:29 | Outpatient (CLI) | payer MEDICAID, SELFPAY ==
--- NOTE | 2025-01-07 07:30 | DI.MRI_ITS ---
Exam(s) MR LUMBAR SPINE WO EXAM: MR LUMBAR SPINE WO CLINICAL HISTORY: changing symptoms,preop,lumbar disc herniation with radiculopathy,m51.16. TECHNIQUE: Multiplanar multisequence MRI of the Lumbar spine was performed. COMPARISON: MR MR LUMBAR SPINE WO from 07/29/2023 MR MR LUMBAR SPINE WO from 06/22/2024 FINDINGS: Bones: The last intervertebral disc space is designated the L5/S1 level for the numbering purpose of this examination. The vertebral body heights are well maintained. Alignment is satisfactory. The si gnal characteristics are unremarkable. Cord: The conus tip ends at the L1 level. It is of normal size and signal intensity. T12-L1: No disc herniations or bulges are present. No central spinal canal or neural foraminal stenos is. L1-2: No disc herniations or bulges are present. No central spinal canal or neural foraminal stenosis . L2-3: No disc herniations or bulges are present. No central spinal canal or neural foraminal stenosis . L3-4: There is a moderate size central disc herniation. There is a small extrusion posterior to the L4 vertebral body centrally. There is mild narrowing of the central spinal canal. No significant ne ural foraminal stenosis. L4-5: There is a moderately large right paracentral disc herniation. There is compression of the in right L5 nerve root secondary to right lateral recess stenosis. There is swuq-la-wcrczthx central sp inal canal stenosis.No significant neural foraminal stenosis is present. L5-S1: There is a moderate size left paracentral disc herniation with extrusion posterior to S1. The re is compression of the left S1 nerve root. There is narrowing of the central spinal canal.There is mild narrowing of the neural foramen bilaterally. Soft tissues: The visualized SI joints and sacrum are well maintained. The paraspinal soft tissues ar e unremarkable. IMPRESSION: Stable appearance of the disc herniations at L3-4, L4-5 and L5-S1 with resultant central spinal canal stenosis. Please refer to the above discussion for complete details. DATA REPOSITORY:
== END 2025-01-07 01:49 ==
LOC: DI 01:29
PROVIDERS: PCP Nurse Practitioner Family; Visit Provider Nurse Practitioner Family
DX: M51.16 Intervertebral disc disorders with radiculopathy, lumbar region (principal)
CPT/HCPCS: 72148

== ENCOUNTER 2025-01-10 10:30 | Outpatient (REF) | payer MEDICAID, SELFPAY ==
[2025-01-11 10:18] LABS: HSV 1 DNA Result Negative (Negative); HSV 2 DNA Result Negative (Negative)
== END 2025-01-10 10:31 | disposition home or self-care (01) ==
LOC: LBN 10:30
PROVIDERS: PCP Nurse Practitioner Family; Visit Provider Nurse Practitioner Women's Health
DX: N90.89 Other specified noninflammatory disorders of vulva and perineum (principal)
CPT/HCPCS: 87529

== ENCOUNTER 2025-03-15 10:12 | Outpatient (REF) | payer MEDICAID, SELFPAY ==
--- NOTE | 2025-03-15 09:40 | PAPFT_PTH ---
PATIENT: Yadira Adams LOC: [facility] U#:[id number] AGE/SX: 25/F ROOM: RE03/15/[address]: Anabella Napier NP : [id number] BED: DIS: 03/15/2025 SPEC #: [id number] RECD: 03/15/25 11:40 STATUS: ULICES REBhanu #: [id number] ERA: 03/15/25 09:[address]: Anabella Napier NP DEPT: [facility] Cytology RECD BY: Shannon Fried ENTERED: 03/15/25 11:40 SP TYPE: PAPFT OTHR DR: Timmy Toro DNP Tissues: 1 - CX/ENDOCX FOR PAP SMEARS Procedures: PAP THIN PREP/UVM Screening Comments: [id number] (CHLAMYDIA/GC)
[2025-03-16 11:44] LABS: Chlamydia Result Negative (Negative); GC Result Negative (Negative)
== END 2025-03-15 10:13 | disposition home or self-care (01) ==
LOC: LBN 10:12
PROVIDERS: PCP Nurse Practitioner Family; Visit Provider Nurse Practitioner Women's Health
DX: Z12.4 Encounter for screening for malignant neoplasm of cervix (principal); Z11.3 Encounter for screening for infections with a predominantly sexual mode of transmission
CPT/HCPCS: 87491; 87591; 88142; 87624

== ENCOUNTER 2025-03-18 14:22 | Outpatient (REF) | payer MEDICAID, SELFPAY | END 2025-03-18 14:23 | disposition home or self-care (01) | LOC: LBN 14:22 | PROVIDERS: PCP Nurse Practitioner Family; Visit Provider Obstetrics & Gynecology | DX: N39.0 Urinary tract infection, site not specified (principal); R82.89 Other abnormal findings on cytological and histological examination of urine | CPT/HCPCS: 87077; 87086; 87186 ==

== ENCOUNTER 2025-03-20 16:22 | Emergency (ER) | payer MEDICAID, SELFPAY ==
[2025-03-20 16:24] VITALS: BP 123/68; PULSE 87; RESP 16; TEMP 36.6; O2SAT 98
[2025-03-20 16:29] VITALS: BP 123/68; PULSE 87; RESP 16; TEMP 36.6; O2SAT 98
--- NOTE | 2025-03-20 16:32 | ED.GENADUL_ITS ---
Discharge Plan Disposition Patient Disposition: Home Condition: Good Discharge Details Clinical Impression: Irritation of eyelid, Corneal abrasion Primary Care Provider: Timmy Bolton ED Provider: Francine Dickinson Home Meds and New Rx's Prescriptions: New polymyxin B sulf-trimethoprim 10,000 unit- 1 mg/mL drops 1 drp ophthalmic (eye) QID 5 Days Qty: 10 0RF No Action lidocaine [Lidoderm] 5 % adhesive patch,medicated 1 patch topical DAILY Qty: 15 12RF Rx Instructions: leave on most painful area for up to 12 hrs (DME) BreatheRite MDI Spacer Spacer See Rx Instructions .ROUTE .MEDSUPPLY Qty: 1 0RF Rx Instructions: As directed albuterol sulfate 90 mcg/actuation HFA aerosol inhaler 2 inh inhalation .Q4-6 hrs PRN (Reason: shortness of breath or wheezing) Qty: 8.5 0RF fluconazole 150 mg tablet 150 mg PO Q3D Qty: 2 0RF nitrofurantoin monohyd/m-cryst [Macrobid] 100 mg capsule 100 mg PO Q12H 7 Days Qty: 14 0RF Rx Instructions: must administer with a meal/food gabapentin 300 mg capsule 600 mg PO TID Qty: 540 5RF cyclobenzaprine 10 mg tablet 10 mg PO TID PRN (Reason: back spasm) Qty: 30 0RF levonorgestrel-ethinyl estrad [Vienva] 0.1-20 mg-mcg tablet 1 tab PO DAILY Qty: 84 4RF Discharge Instructions Instructions: Corneal Abrasion ED Additional Instructions: Please follow-up with your [facility] for re-evaluation if you are not feeling significantly better in the next 3 to 4 days Please use the eyedrops provided, instilling 1 drop per eye 4 times a day while awake for 5 days total. For eyelid irritation I recommend that you use cool compresses for 10 to 15 minutes at a time 4-5 times a day. You should also take loratadine 10 mg slfd-rvr-aitqxom twice a day for irritation. Avoid rubbing at your eyes wash your hands well before and after touching your eyes Return to emergency care if you develop new fever/chills, vision changes, worsening of symptoms despite treatment, eye pain, inability to fully open your eye, severe headaches, vomiting, or if you are very worried and need to be rechecked again immediately Referrals: [facility] [OTHER, [facility]] HPI General Date/Time Provider Initiated Documentation: 03/20/25 16:23 . HPI Narrative: Yadira is a 25-year-old female presents to the emergency department today for eyelid swelling right > left. Right upper eyelid appeared swollen on 03/17/2025, resembling a stye. Swelling increased on 03/18/2025 with facial redness and itching. Itching and redness has subsided, but swelling persists. Swelling and itchiness is most pronounced in the morning, she does have some crusting of her left eye when she wakes up in the morning. Vision unaffected. Been using qila-rra-ayibyeu lubricating gel drops with some improvement of symptoms. Denies associated fever/chills, congestion, itchy nose, runny nose, sore throat, cough, unusual headaches, eye pain. Has had similar incident previously due to animal hair, resolved after removal. 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 No known antibiotic allergies. Has seen [facility] in the past for eye exams PMH significant for AFLD, GERD, anxiety, eczema. Related Data Home Medications ?Medication ?Instructions ?Recorded ?Confirmed gabapentin 300 mg capsule 600 mg (2 x 300 mg) PO TID # 540 04/24/24 03/20/25 caps lidocaine 5 % topical patch 1 patch topical DAILY #15 ea 06/03/24 03/20/25 (Lidoderm) cyclobenzaprine 10 mg tablet 10 mg PO TID PRN back spa sm #30 12/07/24 03/20/25 tabs levonorgestrel-ethinyl estradiol 1 tab PO DAILY #84 ta bs 01/03/25 03/20/25 0.1 mg-20 mcg tablet (Vienva) albuterol sulfate 90 mcg/actuation 2 inh inhalation .Q 4-6 hrs PRN 02/02/25 03/20/25 aerosol inhaler shortness of breath or wheez ing #8.5 grams inhalational spacing device #1 ea 02/02/25 03/20/25 (BreatheRite MDI Spacer) fluconazole 150 mg tablet 150 mg PO Q3D 2 doses #2 tab s 03/18/25 03/20/25 nitrofurantoin 100 mg PO Q12H 7 days #14 ca ps 03/18/25 03/20/25 monohydrate/macrocrystals 100 mg capsule (Macrobid) polymyxin B sulfate 10,000 1 drp ophthalmic (eye) QID 5 days 03/20/25 unit-trimethoprim 1 mg/mL eye drops #10 mL Previous Rx's ?Medication ?Instructions ?Recorded gabapentin 300 mg capsule 600 mg (2 x 300 mg) PO TID # 540 04/24/24 caps lidocaine 5 % topical patch 1 patch topical DAILY #15 ea 06/03/24 (Lidoderm) cyclobenzaprine 10 mg tablet 10 mg PO TID PRN back spa sm #30 12/07/24 tabs levonorgestrel-ethinyl estradiol 1 tab PO DAILY #84 ta bs 01/03/25 0.1 mg-20 mcg tablet (Vienva) albuterol sulfate 90 mcg/actuation 2 inh inhalation .Q 4-6 hrs PRN 02/02/25 aerosol inhaler shortness of breath or wheez ing #8.5 grams inhalational spacing device #1 ea 02/02/25 (BreatheRite MDI Spacer) fluconazole 150 mg tablet 150 mg PO Q3D 2 doses #2 tab s 03/18/25 nitrofurantoin 100 mg PO Q12H 7 days #14 ca ps 03/18/25 monohydrate/macrocrystals 100 mg capsule (Macrobid) polymyxin B sulfate 10,000 1 drp ophthalmic (eye) QID 5 days 03/20/25 unit-trimethoprim 1 mg/mL eye drops #10 mL Allergies Allergy/AdvReac Type Severity Reaction Status Date / Time No Known Allergies Allergy Verified 03/20/25 16:27 General Stated Complaint: EyeProblem PILLO: 4 Exam Narrative Exam Narrative: General Appearance: Normal. Patient very well-appearing, she is alert and oriented, no acute distress. Vital signs: Within normal limits. HEENT: Mild swelling to right upper and lower eyelids, slight injection under eyelid. No crusting or drainage noted. PERRL, EOMs intact, no ciliary flushing. No foreign bodies visualized with full eversion of eyelid. pH 7.0. 1 mm round corneal abrasion noted at 7 o'clock position of right eye with fluorescein stain and Kasper lamp, no dendrites noted. Neuro: Normal facial strength Skin: Warm and dry, no rash. Psychiatric: Normal. Course Vital Signs Vital signs: Vital Signs Temperature 36.6 C 03/20/25 16:24 Pulse 87 03/20/25 16:24 Respiratory Rate 16 03/20/25 16:24 Blood Pressure 123/68 03/20/25 16:24 Pulse Oximetry 98 03/20/25 16:24 Temperature 36.6 C 03/20/25 16:29 Temperature Source Oral 03/20/25 16:29 Pulse 87 03/20/25 16:29 Respiratory Rate 16 03/20/25 16:29 Blood Pressure 123/68 03/20/25 16:29 Blood Pressure Position Sitting 03/20/25 16:29 Pulse Oximetry 98 03/20/25 16:29 Oxygen Delivery Method Room Air 03/20/25 16:29 Oxygen Flow Rate 0 03/20/25 16:29 Pain Level 3 03/20/25 16:29 Medical Decision Making Initial Assessment: 25-year-old female with eye discomfort, swelling, and redness. Vision unaffected, better tahn 20/20 bilaterally. She does not wear con tacts. No signs of infection. History and presentation consistent with localized irritation/allergic reaction with corneal abrasion. No stye or local infection noted. No red flags concerning for serious etiology such as preseptal cellulitis/orbital cellulitis at this time requiring diagnostic imaging or labs. Normal pH. ED Course: - Examined eyes, noted swelling and redness. - Checked pH of the eye, result 7.0. - Identified minor corneal abrasion. - Administered first dose of antibiotic eyedrops. Final Assessment: Localized reaction with minor corneal abrasion. Cool compresses and loratadine recommended. Antibiotic drops prescribed. Clinical Impression: - Localized skin irritation, likely allergic versus other irritant - Corneal abrasion Disposition: - Discharge: Home. No signs of infection. Return if pain or worsening swelling occurs. Reviewed red flags with patient indicating need for return to emergency care. - Follow-Up: Follow up with eye doctor if not improved in 3-4 days or if worsens. Patient voices agreement with plan of care. Patient Education: Cool compresses 10-15 minutes. Loratadine twice daily. Continue soothing eyedrops. Hand hygiene before and after eyedrop application. Patient consented to the use of TASNEEM Quality:SDOH Health Related Social Needs: Health related social needs details declines assistanc e PFSH All Active Problems Corneal abrasion (Acute) Irritation of eyelid (Acute) UTI (urinary tract infection) (Acute) Urinary urgency (Acute) Constipation (Acute) Irritability and anger (Acute) Right leg swelling (Acute) Lumbar disc herniation with radiculopathy (Acute) Eczema (Acute) Class 3 obesity (Acute) NAFLD (nonalcoholic fatty liver disease) (Chronic) FIGUEROA Chronic GERD (Chronic) Biliary dyskinesia (Acute) BMI 40.0-44.9, adult (Acute) Generalized anxiety disorder (Acute) Oral contraceptive use (Acute) Medical History Arthralgia Lower back pain History of anal fissures Cough Postprandial RUQ pain Rhinosinusitis URI (upper respiratory infection) History of hemorrhoids Bright red rectal bleeding Depressed Rash Humerus lesion, right Tendonitis of long head of biceps brachii of right shoulder Tonsillitis Left foot pain Smoker (09/23/17) Increased body mass index (BMI) (10/23/17) Surgical History History of laparoscopic cholecystectomy (~03/18/23) Family History Mother Asthma Father Alcohol abuse Essential hypertension Diabetes Paternal Grandfather Parkinson disease Paternal Grandmother Essential hypertension Asthma Social History Smoking/Tobacco Use Status: Current every day Tobacco Type: e-cigarettes Tobacco: How many years used: 6 Quit status: considering quitting Second Hand Exposure: Yes Counseling given: counseling >3 minutes Smoking risk assessment performed?: Yes Alcohol Intake: current Alcohol Intake frequency: a few times a month Alcohol type: beer Details: 6 or more drinks monthly Drug use: Rarely Substance use type: marijuana Counseling given: Yes Counseling provided: provider counseling Details: edible Adopted: No Caregiver/Support person: No Household members: significant other Housing: house Communication Needs: None Do you need help understanding health information?: Never Pets and animals: Yes Pets and animals: dog(s), horse(s), turtle(s) and farm animals Sexually active: Yes Current gender identity: female What is your relationship status?: never How often do you talk on the phone with friends or family?: three or more times per week How often do you get together with friends or relatives?: twice per week How often do you attend jew or lutheran services?: 4 or more times per year Do you belong to any clubs or organized social groups?: no Panel score (0-1 are the most socially isolated patients): 2 What type of physical activity do you participate in: walking and other 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, [employer] Duration: 30-45 minutes/day Frequency: 5-6 times per week Yadira/Lutheran: Restorationism Seatbelt use: sometimes Helmet use: Yes Helmet use: sometimes Drive intox or ride w/intox transportation driver: Yes Drive intox or w/intox transportation 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 Date GA/Weeks # Preg Succ Route Wgt Sex Labor Lgth Anesth esia Location Prov Complic 07/29/21 4 Delivery Date: 07/29/21 Last Updated by: Tamiko Beach MD [facility]
[2025-03-20] MEDS: Fluorescein STRIPS 100/BOX 1 MG OP (16:35)
[2025-03-20] MEDS: Tetracaine 0.5% 4 ML BTL OP (16:35)
[2025-03-20] MEDS: Loratidine 10 MG TAB PO (17:05)
[2025-03-20] MEDS: Polymyxin B/Trimethoprim Ophth Soln 10 ML BTL OD (17:05)
== END 2025-03-20 17:21 | disposition home or self-care (01) ==
PROVIDERS: Emergency Provider Nurse Practitioner Family; PCP Nurse Practitioner Family
DX: S05.01XA Injury of conjunctiva and corneal abrasion without foreign body, right eye, initial encounter (principal); Y93.K3 Activity, grooming and shearing an animal; Y92.89 Other specified places as the place of occurrence of the external cause; F17.290 Nicotine dependence, other tobacco product, uncomplicated
CPT/HCPCS: 99283

== ENCOUNTER 2025-03-22 07:33 | Emergency (ER) | payer MEDICAID, SELFPAY ==
[2025-03-22 07:33] VITALS: BP 134/95; PULSE 87; RESP 17; TEMP 36.6; O2SAT 100
--- NOTE | 2025-03-22 07:34 | ED.GENADUL_ITS ---
Discharge Plan Disposition Patient Disposition: Home Condition: Stable Discharge Details Clinical Impression: UTI (urinary tract infection), Corpus luteum cyst of right ovary Primary Care Provider: Timmy Bolton ED Provider: Anali Manjarrez Home Meds and New Rx's Prescriptions: New cephalexin 500 mg capsule 500 mg PO QID 7 Days Qty: 28 0RF No Action lidocaine [Lidoderm] 5 % adhesive patch,medicated 1 patch topical DAILY Qty: 15 12RF Rx Instructions: leave on most painful area for up to 12 hrs (DME) BreatheRite MDI Spacer Spacer See Rx Instructions .ROUTE .MEDSUPPLY Qty: 1 0RF Rx Instructions: As directed albuterol sulfate 90 mcg/actuation HFA aerosol inhaler 2 inh inhalation .Q4-6 hrs PRN (Reason: shortness of breath or wheezing) Qty: 8.5 0RF fluconazole 150 mg tablet 150 mg PO Q3D Qty: 2 0RF nitrofurantoin monohyd/m-cryst [Macrobid] 100 mg capsule 100 mg PO Q12H 7 Days Qty: 14 0RF Rx Instructions: must administer with a meal/food gabapentin 300 mg capsule 600 mg PO TID Qty: 540 5RF cyclobenzaprine 10 mg tablet 10 mg PO TID PRN (Reason: back spasm) Qty: 30 0RF levonorgestrel-ethinyl estrad [Vienva] 0.1-20 mg-mcg tablet See Rx Instructions .ROUTE .COMPLEX Qty: 84 4RF Dose Instruction: TAKE ONE TABLET BY MOUTH EVERY DAY Rx Instructions: TAKE ONE TABLET BY MOUTH EVERY DAY polymyxin B sulf-trimethoprim 10,000 unit- 1 mg/mL drops 1 drp ophthalmic (eye) QID 5 Days Qty: 10 0RF Discharge Instructions Instructions: Urinary Tract Infection, Adult ED Additional Instructions: You were seen in the emergency department today for evaluation of right-sided abdominal and back pain, and were found to have an ongoing UTI as well as an ovarian cyst. In her department you do full physical examination performed, had laboratory studies that were reassuring and had a CT scan that did not show any other abnormalities that needed acute intervention. I do think that it is reasonable to switch her antibiotic from Macrobid to Keflex. Please stop taking the Macrobid and discard of the remainder, and start the Keflex. You should take this medication as prescribed until it is gone, even if you start to feel better. Please use therapeutic dosing of Tylenol (acetaminophen) & Advil (ibuprofen) in an alternating fashion as follows: Take 1000mg of Tylenol every 6 hours without missing doses- that is 4 times per day. Shelter in between the Tylenol doses, take 600mg of Advil also on a 6 hour schedule, that is also 4 times per day. With this strategy, you will be taking something for fever/pain as often as every 3 hours. The daily maximum dosing of Tylenol is 4000mg, and the daily maximum dosing of Advil is 2400mg. Please note that some common cold medications & prescription pain medications may contain acetaminophen and you need to read OTC drug labels and factor that in to maximum daily doses. Please maintain good hydration and nutrition, and please follow-up with your primary care provider in the next few days to discuss this visit and any symptoms that change, worsen, or persist. Thank you for allowing us to be part of your care. Stand Alone Forms: Work Release HPI General Mode of arrival: ambulatory . Date/Time Provider Initiated Documentation: 03/22/25 07:34 . Limitations to Documentation: no limitations . Information obtained by: patient and old records reviewed . HPI Narrative: This is a 25-year-old female patient with a past medical history significant for [place], GERD, status postcholecystectomy, who is presenting for evaluation of right lower quadrant abdominal pain and urinary frequency. The patient reports that her symptoms started a few days after recent Pap smear, she was evaluated and started on Macrobid for a presumed UTI. She reports that she was able to take 2 days of this medication, developed some constipation which is common for her. She took milk of magnesia, states that she has started to pass liquid stools, but has not been able to take her antibiotics because she has not been able to put any food in her belly with them. Yesterday the patient developed right sided abdominal pain, states that this feels different from her typical constipation pain. She has had some nausea but no vomiting, denies fevers or chills Related Data Home Medications ?Medication ?Instructions ?Recorded ?Confirmed gabapentin 300 mg capsule 600 mg (2 x 300 mg) PO TID # 540 04/24/24 03/22/25 caps lidocaine 5 % topical patch 1 patch topical DAILY #15 ea 06/03/24 03/22/25 (Lidoderm) cyclobenzaprine 10 mg tablet 10 mg PO TID PRN back spa sm #30 12/07/24 03/22/25 tabs albuterol sulfate 90 mcg/actuation 2 inh inhalation .Q 4-6 hrs PRN 02/02/25 03/22/25 aerosol inhaler shortness of breath or wheez ing #8.5 grams inhalational spacing device #1 ea 02/02/25 03/22/25 (BreatheRite MDI Spacer) fluconazole 150 mg tablet 150 mg PO Q3D 2 doses #2 tab s 03/18/25 03/22/25 nitrofurantoin 100 mg PO Q12H 7 days #14 ca ps 03/18/25 03/22/25 monohydrate/macrocrystals 100 mg capsule (Macrobid) polymyxin B sulfate 10,000 1 drp ophthalmic (eye) QID 5 days 03/20/25 03/22/25 unit-trimethoprim 1 mg/mL eye drops #10 mL levonorgestrel-ethinyl estradiol See Rx Instructions . Route 03/21/25 03/22/25 0.1 mg-20 mcg tablet (Vienva) .COMPLEX #84 tabs cephalexin 500 mg capsule 500 mg PO QID 7 days #28 cap s 03/22/25 Previous Rx's ?Medication ?Instructions ?Recorded gabapentin 300 mg capsule 600 mg (2 x 300 mg) PO TID # 540 04/24/24 caps lidocaine 5 % topical patch 1 patch topical DAILY #15 ea 06/03/24 (Lidoderm) cyclobenzaprine 10 mg tablet 10 mg PO TID PRN back spa #30 12/07/24 tabs albuterol sulfate 90 mcg/actuation 2 inh inhalation .Q 4-6 hrs PRN 02/02/25 aerosol inhaler shortness of breath or wheez ing #8.5 grams inhalational spacing device #1 ea 02/02/25 (BreatheRite MDI Spacer) fluconazole 150 mg tablet 150 mg PO Q3D 2 doses #2 tab s 03/18/25 nitrofurantoin 100 mg PO Q12H 7 days #14 ca ps 03/18/25 monohydrate/macrocrystals 100 mg capsule (Macrobid) polymyxin B sulfate 10,000 1 drp ophthalmic (eye) QID 5 days 03/20/25 unit-trimethoprim 1 mg/mL eye drops #10 mL levonorgestrel-ethinyl estradiol See Rx Instructions . Route 03/21/25 0.1 mg-20 mcg tablet (Vienva) .COMPLEX #84 tabs cephalexin 500 mg capsule 500 mg PO QID 7 days #28 cap s 03/22/25 Allergies Allergy/AdvReac Type Severity Reaction Status Date / Time No Known Allergies Allergy Verified 03/22/25 07:45 General PILLO: 4 Exam Narrative Exam Narrative: Gen: Awake and alert, in no apparent distress HEENT: Non-icteric sclera Neck: Supple Lungs: No apparent respiratory distress, normal respiratory effort. CV: Appears well perfused, strong distal pulses Abdomen: Non-distended, soft, tender to palpation in the right mid and lower quadrants without rigidity, rebound, or guarding. No overlying skin changes noted MSK: Moves 4 extremities without apparent limitation in ROM, no CVA tenderness Skin: Visualized skin without rashes, cyanosis. Neuro: Normal Gait, no obvious focal deficits or facial asymmetry. Speaks in full, clear sentences. Psych: Appropriate for situation. Medical Decision Making This is a 25-year-old female patient presenting for evaluation of abdominal pain and increasing urinary frequency. My differential includes, but is not limited to urinary pathology including UTI, nephrolithiasis. Considered gastritis/PUD, gastroenteritis, pancreatitis, cholecystitis and gallbladder pathology, hepatit is, appendicitis, diverticulitis, small bowel obstruction, sequelae of constipation. Considered mesenteric ischemia, aortic pathology, though this is less concerning based on the patient's history and physical exam. Considered ectopic , PID/TOA, ovarian cyst, ovarian torsion. We will obtain laboratory studies to include CBC, CMP, magnesium, urinalysis and urine . I will provide the patient with a dose of Toradol and Zofran, and obtain a CT of her abdomen and pelvis to better characterize the cause of her pain. - I independently interpreted the laboratory studies, which show no significant leukocytosis, anemia, or thrombocytopenia. The chemistry panel is without evidence of electrolyte abnormality, kidney dysfunction, or liver injury. Magnesium is slightly elevated likely in the setting of her use of milk of magnesia. Urinalysis with blood and leukocyte esterase, in the setting of her recent urinary symptoms I feel that it is reasonable to treat her for UTI, but given her flank pain I would transition away from Macrobid and to Keflex, which has better coverage for early/mild pyelonephritis. CT scan shows no evidence of obstructing renal stones, appendicitis, but does show a corpus luteal cyst on the right side, which the patient was informed of. The patient's first dose of Keflex was provided in the emergency department today, and at this time, the patient has had a full medical evaluation and is safe for discharge to home. They are hemodynamically stable, ambulatory, and tolerating PO. They are understanding of the follow-up plan and return precau tions. They left our facility without incident. Anali Manjarrez MD Quality:[facility] Health Related Social Needs: Health related social needs details declines assistanc e PFSH All Active Problems Corpus luteum cyst of right ovary (Acute) UTI (urinary tract infection) (Acute) Corneal abrasion (Acute) Irritation of eyelid (Acute) UTI (urinary tract infection) (Acute) Urinary urgency (Acute) Constipation (Acute) Irritability and anger (Acute) Right leg swelling (Acute) Lumbar disc herniation with radiculopathy (Acute) Eczema (Acute) Class 3 obesity (Acute) NAFLD (nonalcoholic fatty liver disease) (Chronic) [place] Chronic GERD (Chronic) Biliary dyskinesia (Acute) BMI 40.0-44.9, adult (Acute) Generalized anxiety disorder (Acute) Oral contraceptive use (Acute) Medical History Arthralgia Lower back pain History of anal fissures Cough Postprandial RUQ pain Rhinosinusitis URI (upper respiratory infection) History of hemorrhoids Bright red rectal bleeding Depressed Rash Humerus lesion, right Tendonitis of long head of biceps brachii of right shoulder Tonsillitis Left foot pain Smoker (09/23/17) Increased body mass index (BMI) (10/23/17) Surgical History History of laparoscopic cholecystectomy (~03/18/23) Family History Mother Asthma Father Alcohol abuse Essential hypertension Diabetes Paternal Grandfather Parkinson disease Paternal Grandmother Essential hypertension Asthma Social History Smoking/Tobacco Use Status: Current every day Tobacco Type: e-cigarettes Tobacco: How many years used: 6 Quit status: considering quitting Second Hand Exposure: Yes Counseling given: counseling >3 minutes Smoking risk assessment performed?: Yes Alcohol Intake: current Alcohol Intake frequency: a few times a month Alcohol type: beer Details: 6 or more drinks monthly Drug use: Rarely Substance use type: marijuana Counseling given: Yes Counseling provided: provider counseling Details: edible Adopted: No Caregiver/Support person: No Household members: significant other Housing: house Communication Needs: None Do you need help understanding health information?: Never Pets and animals: Yes Pets and animals: dog(s), horse(s), turtle(s) and farm animals Sexually active: Yes Current gender identity: female What is your relationship status?: never How often do you talk on the phone with friends or family?: three or more times per week How often do you get together with friends or relatives?: twice per week How often do you attend temple or church services?: 4 or more times per year Do you belong to any clubs or organized social groups?: no Panel score (0-1 are the most socially isolated patients): 2 What type of physical activity do you participate in: walking and other 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 Date GA/Weeks # Preg Succ Route Wgt Sex Labor Lgth Anesth esia Location Prov Complic 07/29/21 4 Delivery Date: 07/29/21 Last Updated by: Tamiko Beach MD [facility]
[2025-03-22 07:44] VITALS: BP 134/95; PULSE 87; RESP 17; TEMP 36.6; O2SAT 100
--- NOTE | 2025-03-22 07:56 | DI.CT_ITS ---
Exam(s) CT ABDOMEN PELVIS W EXAM: CT ABDOMEN PELVIS W CLINICAL HISTORY: RLQ abd pain TECHNIQUE: Imaging Protocol: Axial computed tomography images with coronal and sagittal reformatted images were created and reviewed. CONTRAST MATERIAL: Intravenous: Omnipaque 350 Contrast volume:100 mL Oral: No COMPARISON: CT CT ABDOMEN PELVIS WO from 02/24/[address] ABDOMEN PELVIS W from 11/22/2023 FINDINGS: ABDOMEN: Lung Bases: No acute abnormality. Liver: Normal density. No measurable mass. Portal, Superior Mesenteric, and Splenic Veins: Unremarkable. Gallbladder and Biliary Tract: Status post cholecystectomy. No significant biliary ductal dilatation is present. Pancreas: Normal density, no abnormal calcifications or inflammatory process. Spleen: Normal. Adrenals: No masses seen. Kidneys: Normal size, contour and axis. No radiodense stones or obstructive uropathy. No masses seen. Abdominal Aorta: Abdominal portion non-dilated. Bowel: No obstruction or bowel wall thickening. Appendix is unremarkable. Peritoneal Cavity: No ascites, collection or mesenteric inflammatory response. No free air. Lymph Nodes: Within normal limits. Bones: Within normal limits for the patient's age. Soft Tissues: Unremarkable. PELVIS: Bladder: Symmetric distention, no gross wall thickening. Reproductive Organs: There is a 2.5 cm peripherally enhancing cyst on the right ovary. There is a small amount of fluid in the right adnexa and in the cul-de-sac which is likely physiologic. The reproductive organs are otherwise unremarkable. Lymph Nodes: Within normal limits. Bones: Within normal limits for the patient's age. IMPRESSION: 1. Normal appendix. 2. 2.5 cm peripherally enhancing cyst on the right ovary consistent with a corpus luteal cyst. Small amount of free fluid in the right adnexa and cul-de-sac which is likely physiologic. RADIATION DOSE DELIVERED: 858.39mGy.cm Total DLP DATA REPOSITORY: All CT scans at this facility are submitted to the National Radiology Data Registry (NRDR) Dose Index Registry (DIR) with the [employer] ([employer]). RADIATION OPTIMIZATION: All CT scans at this facility use at least one of these dose optimization techniques: automated exposure control; mA and/or kV adjustment per patient size (includes targeted exams where dose is matched to clinical indication); or iterative reconstruction.
[2025-03-22 08:15] LABS: Glucose Negative (Negative)
[2025-03-22 08:26] LABS: C & S Indicated? No
[2025-03-22 08:53] LABS: Abs Immature Grans 0.04 10^3/uL (0.0-0.06); HCT 42.9 % (36.0-46.0); HGB 13.9 g/dL (11.2-15.7); Immature Grans % 0.4 %; MCH 28.8 pg (27.0-33.0); MCHC 32.4 % (32.0-36.0); MCV 89 fL (80-95); MPV 9.0 fL (8.0-11.0); Platelet Count 262 10^3/uL (130-400); RBC 4.82 10^6/uL (3.93-5.22); RDW 13.8 % (11.7-14.6); RDW-SD 44.8 fL; WBC 10.23 10^3/uL (4.4-10.8)
[2025-03-22 09:13] LABS: ALT 37 U/L (14-59); AST 21 U/L (15-37); Albumin 3.9 g/dL (3.4-5.0); Alkaline Phosphatase 65 U/L (46-116); Anion Gap 9.5 mmol/L (3-11); BUN 10 mg/dL (7-18); Bilirubin, Total 0.4 mg/dL (0.2-1.0); CO2 26.5 mmol/L (21.0-32.0); Calcium 9.4 mg/dL (8.5-10.1); Chloride 102 mmol/L (98-107); Estimated GFR 90.98 (mL/min/1.73m2); Glucose 96 mg/dL (74-106); Magnesium 2.6 mg/dL (1.8-2.4); Potassium 3.9 mmol/L (3.5-5.1); Sodium 138 mmol/L (136-145); Total Protein 8.1 g/dL (6.4-8.2)
[2025-03-22] MEDS: Omnipaque 350 MG/ML 100 ML BTL IJ (09:32)
[2025-03-22] MEDS: Normal Saline - Diluent 50 ML VIAL IJ (09:33)
[2025-03-22] MEDS: Ketorolac 15 MG/ML VIAL IVP (09:42)
[2025-03-22] MEDS: Ondansetron 4 MG/2 ML VIAL IVP (09:42)
[2025-03-22] MEDS: Normal Saline Flush 10 ML SYR IVP (09:43)
[2025-03-22 10:39] VITALS: BP 123/71; PULSE 77; RESP 16; TEMP 36.9; O2SAT 95
[2025-03-22] MEDS: Cephalexin 500 MG CAP PO (10:50)
== END 2025-03-22 11:04 | disposition home or self-care (01) ==
PROVIDERS: Emergency Provider Emergency Medicine; PCP Nurse Practitioner Family
DX: N39.0 Urinary tract infection, site not specified (principal); N83.11 Corpus luteum cyst of right ovary; Z90.49 Acquired absence of other specified parts of digestive tract
CPT/HCPCS: 36415; 80053; 96374; 99285; 74177; 81003; 81015; 83735; 85025; J1885; J2405; J3490

== ENCOUNTER 2025-07-12 15:12 | Outpatient (REF) | payer MEDICAID, SELFPAY | END 2025-07-12 15:13 | disposition home or self-care (01) | LOC: LBN 15:12 | PROVIDERS: PCP Nurse Practitioner Family; Visit Provider Nurse Practitioner Family | DX: M79.89 Other specified soft tissue disorders (principal); J02.9 Acute pharyngitis, unspecified | CPT/HCPCS: 87077; 87070 ==

== ENCOUNTER 2025-08-31 09:47 | Emergency (ER) | payer MEDICAID, SELFPAY ==
[2025-08-31] VITALS (7 sets, daily range): BP systolic 124–140; BP diastolic 65–82; PULSE 69–91; RESP 14; TEMP 37.2; O2SAT 98–100
--- NOTE | 2025-08-31 10:05 | ED.GENADUL_ITS ---
Discharge Plan Disposition Patient Disposition: Home Condition: Stable Discharge Details Clinical Impression: Diarrhea Primary Care Provider: Timmy Bolton ED Provider: Earnest Napier Home Meds and New Rx's Prescriptions: New ondansetron 4 mg tablet,disintegrating 4 mg PO Q8H PRN (Reason: nausea and vomiting) Qty: 30 0RF Continued (DME) BreatheRite MDI Spacer Spacer See Rx Instructions .ROUTE .MEDSUPPLY Qty: 1 0RF Rx Instructions: As directed albuterol sulfate 90 mcg/actuation HFA aerosol inhaler 2 inh inhalation .Q4-6 hrs PRN (Reason: shortness of breath or wheezing) Qty: 8.5 0RF gabapentin 300 mg capsule 600 mg PO TID Qty: 540 5RF cyclobenzaprine 10 mg tablet 10 mg PO TID PRN (Reason: back spasm) Qty: 30 0RF olopatadine [Pataday Twice Daily Relief] 0.1 % drops 1 drp ophthalmic (eye) BID Qty: 5 0RF Rx Instructions: separate doses by at least 6-8 hours fluconazole 150 mg tablet 150 mg PO Q3D Qty: 2 0RF ondansetron 4 mg tablet,disintegrating 4 mg PO Q6H PRN (Reason: nausea and vomiting) Qty: 20 0RF levonorgestrel-ethinyl estrad [Vienva] 0.1-20 mg-mcg tablet See Rx Instructions .ROUTE .COMPLEX Qty: 84 4RF Dose Instruction: TAKE ONE TABLET BY MOUTH EVERY DAY Rx Instructions: TAKE ONE TABLET BY MOUTH EVERY DAY Discharge Instructions Additional Instructions: Your blood work did not show any concerning findings at this time. You are likely suffering from a viral illness that will run its course and your body will fight off on its own. If you are not improving within a week follow-up with your primary care provider. You can take imoidum or pepto bismol for diarrhea, follow the dosing instructions on the packaging. If you feel significantly more ill, have persistent vomiting or high fevers return to the emergency department for reevaluation. Stand Alone Forms: Portal Information HPI General Mode of arrival: ambulatory . Date/Time Provider Initiated Documentation: 08/31/25 09:49 . Limitations to Documentation: no limitations . Information obtained by: patient . History of Present Illness 25 year old F presents to the emergency department with the chief complaint of diarrhea, abdominal pain, described as moderate, Patient started experiencing this day(s) (1) and it has been intermittent. No relieving factors improve symptom(s), No exacerbating factors reported . Patient notes nausea/vomiting; denies fever/chills. Related Data Home Medications ?Medication ?Instructions ?Recorded ?Confirmed albuterol sulfate 90 mcg/actuation 2 inh inhalation .Q 4-6 hrs PRN 02/02/25 08/31/25 aerosol inhaler shortness of breath or wheez ing #8.5 grams inhalational spacing device #1 ea 02/02/25 08/31/25 (BreatheRite MDI Spacer) levonorgestrel-ethinyl estradiol See Rx Instructions . 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 #30 07/12/25 08/31/25 tabs gabapentin 300 mg capsule 600 mg (2 x 300 mg) PO TID # 540 07/12/25 08/31/25 caps fluconazole 150 mg tablet 150 mg PO Q3D 2 doses #2 tab s 08/15/25 08/31/25 ondansetron 4 mg disintegrating 4 mg PO Q6H PRN nausea and 08/15/25 08/31/25 tablet vomiting #20 tabs olopatadine 0.1 % eye drops 1 drp ophthalmic (eye) BID #5 mL 08/24/25 08/31/25 (Pataday Twice Daily Relief) ondansetron 4 mg disintegrating 4 mg PO Q8H PRN nausea and 08/31/25 tablet vomiting #30 tabs Previous Rx's ?Medication ?Instructions ?Recorded albuterol sulfate 90 mcg/actuation 2 inh inhalation .Q 4-6 hrs PRN 02/02/25 aerosol inhaler shortness of breath or wheez ing #8.5 grams inhalational spacing device #1 ea 02/02/25 (BreatheRite MDI Spacer) levonorgestrel-ethinyl estradiol See Rx Instructions . 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 #30 07/12/25 tabs gabapentin 300 mg capsule 600 mg (2 x 300 mg) PO TID # 540 07/12/25 caps fluconazole 150 mg tablet 150 mg PO Q3D 2 doses #2 tab s 08/15/25 ondansetron 4 mg disintegrating 4 mg PO Q6H PRN nausea and 08/15/25 tablet vomiting #20 tabs olopatadine 0.1 % eye drops 1 drp ophthalmic (eye) BID #5 mL 08/24/25 (Pataday Twice Daily Relief) ondansetron 4 mg disintegrating 4 mg PO Q8H PRN nausea and 08/31/25 tablet vomiting #30 tabs Allergies Allergy/AdvReac Type Severity Reaction Status Date / Time No Known Allergies Allergy Verified 08/31/25 09:55 General Stated Complaint: Nausea/Vomit/Diar PILLO: 3 Review of Systems All systems reviewed & are unremarkable except as noted in HPI and below Constitutional Constitutional: Denies chills, Denies fever(s) and Denies weakness Cardiovascular Cardiovascular: Denies chest pain and Denies dyspnea Respiratory Respiratory: Denies cough and Denies dyspnea Gastrointestinal Gastrointestinal: Reports abdominal pain, Reports diarrhea, Reports nausea and Reports vomiting Neurologic Neurologic: Denies weakness Exam Const General: no acute distress Orientation: alert [facility] Head: normal to inspection Ears: external ears normal General nose exam: external nose normal Mouth: moist mucous membranes Eyes General: appearance normal, both eyes and all related structures Neck Neck: normal visual inspection Resp Effort & Inspection: normal respiratory effort and able to speak in complete sentences Cardio Rate: regular rate GI Palpation: soft, not firm, no guarding and nontender Skin General skin exam: no rashes or lesions noted Neuro General: patient alert and patient oriented x3 Extrem General: normal to inspection Psych Mental Status: mental status grossly normal Course Vital Signs Vital signs: Vital Signs Temperature 37.2 C 08/31/25 09:51 Pulse 91 H 08/31/25 09:51 Respiratory Rate 14 08/31/25 09:51 Blood Pressure 140/65 08/31/25 09:51 Pulse Oximetry 100 08/31/25 09:51 Temperature 37.2 C 08/31/25 09:58 Temperature Source Temporal Artery Scan 08/31/25 09:58 Pulse 90 08/31/25 10:00 Respiratory Rate 14 08/31/25 09:58 Blood Pressure 129/81 08/31/25 10:00 Blood Pressure Mean 97 08/31/25 10:00 Blood Pressure Position Sitting 08/31/25 09:58 Pulse Oximetry 99 08/31/25 10:00 Oxygen Delivery Method Room Air 08/31/25 10:00 Oxygen Flow Rate 0 08/31/25 10:00 Pain Level 5 08/31/25 09:58 Medical Decision Making 25-year-old female comes in with nausea vomiting and diarrhea starting last night. She says she had flu B 3 weeks ago and then also a stomach illness which had resolved. She says she is thrown up 3 times and has had multiple liquid stools. Denies any high fevers, no recent travel. She says she will have intermittent upper abdominal cramping and pain. She is stable on arrival, her abdomen is soft and nondistended, she has no tenderness on exam currently. No right upper quadrant tenderness or Samuel sign. I suspect she has a gastroenteritis, given her lack of tenderness on exam I do not feel imaging of her abdomen is indicated as I do not suspect surgical pathology such as cholecystitis or small bowel obstruction. Will check CBC CMP and treat her symptoms with Zofran and a GI cocktail and reassess. She is moderately patient's labs unremarkable and she is feeling improved. I suspect a viral gastroenteritis. She is stable for discharge and advised to follow-up with her PCP if not improving and return precautions given. Differential Diagnosis Differential Diagnosis: gastroenteritis, electrolyte abnormality Quality:SDOH Health Related Social Needs: Health related social needs details declines assistanc e PFSH All Active Problems Diarrhea (Acute) Allergic conjunctivitis (Acute) History of anal fissures (Acute) History of hemorrhoids (Acute) Urinary urgency (Acute) Irritability and anger (Acute) Right leg swelling (Acute) Lumbar disc herniation with radiculopathy (Acute) Eczema (Acute) Class 3 obesity (Acute) NAFLD (nonalcoholic fatty liver disease) (Chronic) FIGUEROA Chronic GERD (Chronic) Biliary dyskinesia (Acute) BMI 40.0-44.9, adult (Acute) Generalized anxiety disorder (Acute) Oral contraceptive use (Acute) Medical History UTI (urinary tract infection) Constipation Lower back pain Arthralgia Cough Postprandial RUQ pain Rhinosinusitis URI (upper respiratory infection) Bright red rectal bleeding Depressed Rash Humerus lesion, right Tendonitis of long head of biceps brachii of right shoulder Tonsillitis Left foot pain Smoker (09/23/17) Increased body mass index (BMI) (10/23/17) Surgical History History of laparoscopic cholecystectomy (~03/18/23) Family History Mother Asthma Father Alcohol abuse Essential hypertension Diabetes Paternal Grandfather Parkinson disease Paternal Grandmother Essential hypertension Asthma Social History Smoking/Tobacco Use Status: Current every day Tobacco Type: e-cigarettes Tobacco: How many years used: 6 Quit status: considering quitting Second Hand Exposure: Yes Counseling given: counseling >3 minutes Smoking risk assessment performed?: Yes Alcohol Intake: current Alcohol Intake frequency: a few times a month Alcohol type: beer Details: 6 or more drinks monthly Drug use: Rarely Substance use type: marijuana Counseling given: Yes Counseling provided: provider counseling Details: edible Adopted: No Caregiver/Support person: No Household members: significant other Housing: house Communication Needs: None Do you need help understanding health information?: Never Pets and animals: Yes Pets and animals: dog(s), horse(s), turtle(s) and farm animals Sexually active: Yes Do you think of yourself as: straight/heterosexual Current gender identity: female What is your relationship status?: never How often do you talk on the phone with friends or family?: three or more times per week How often do you get together with friends or relatives?: twice per week How often do you attend moravian or amish services?: 4 or more times per year Do you belong to any clubs or organized social groups?: no Panel score (0-1 are the most socially isolated patients): 2 What type of physical activity do you participate in: walking and other 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, [employer] Duration: 30-45 minutes/day Frequency: 5-6 times per week Yadira/Samaritan: Roman Catholic Seatbelt use: sometimes Helmet use: Yes Helmet use: sometimes 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 Date GA/Weeks # Preg Succ Route Wgt Sex Labor Lgth Anesth esia Location Prov Complic 07/29/21 4 Delivery Date: 07/29/21 Last Updated by: Tamiko Beach MD [facility]
[2025-08-31 10:18] LABS: Abs Immature Grans 0.02 10^3/uL (0.0-0.06); HCT 42.5 % (36.0-46.0); HGB 13.9 g/dL (11.2-15.7); Immature Grans % 0.2 %; MCH 29.1 pg (27.0-33.0); MCHC 32.7 % (32.0-36.0); MCV 89 fL (80-95); MPV 8.6 fL (8.0-11.0); Platelet Count 262 10^3/uL (130-400); RBC 4.78 10^6/uL (3.93-5.22); RDW 13.1 % (11.7-14.6); RDW-SD 42.9 fL; WBC 8.78 10^3/uL (4.4-10.8)
[2025-08-31] MEDS: Normal Saline 1,000 ML 1000 ML IV (10:21)
[2025-08-31] MEDS: Ondansetron 4 MG/2 ML VIAL IVP (10:22)
[2025-08-31] MEDS: MYLANTA 30 ML, LIDOCAINE 2% VISCOUS UD 15 ML PO (10:22)
[2025-08-31 10:34] LABS: Lipase 35 U/L (<53)
[2025-08-31 10:37] LABS: ALT 28 U/L (10-49); AST 22 U/L (<34); Albumin 4.5 g/dL (3.2-5.0); Alkaline Phosphatase 67 U/L (46-116); Anion Gap 9.3 mmol/L (3-11); BUN 9 mg/dL (9-23); Bilirubin, Total 0.5 mg/dL (0.2-1.2); CO2 26.7 mmol/L (20.0-31.0); Calcium 9.2 mg/dL (8.3-10.6); Chloride 106 mmol/L (98-107); Glucose 86 mg/dL (74-106); Magnesium 1.8 mg/dL (1.6-2.6); Potassium 4.3 mmol/L (3.5-5.1); Sodium 142 mmol/L (136-145); Total Protein 7.4 g/dL (5.7-8.2)
== END 2025-08-31 11:50 | disposition home or self-care (01) ==
PROVIDERS: Emergency Provider Emergency Medicine; PCP Nurse Practitioner Family
DX: R19.7 Diarrhea, unspecified (principal); R11.10 Vomiting, unspecified
CPT/HCPCS: 99283; 99284; 36415; 96374; 80053; 83690; 96361; 83735; 85025; J2405